=== PATIENT | male | born 1950 | race Caucasian/White ===

== ENCOUNTER 2018-06-23 13:42 | Inpatient (IN) | payer MEDICARE, MEDICAID ==
[~2018-06-23] VITALS: Ht 165.1 cm; Wt 149.1 kg
--- NOTE | ~2018-06-23 | MORECARE ---
CASE MANAGEMENT DISCHARGE SUMMARY PATIENT: FREEMAN ALBRECHT UNIT: [id number] ADM DATE: 06/23/18 AGE: 68 : [birth year] SEX: M ROOM/BED: D.8827 AUTHOR: ASHLEY,DOC PHYSICIAN: REFERRING PHYSICIAN: EMILY AMADOR MD DATE OF SERVICE: 08/05/18 Discharge Plan Patient Name: FREEMAN ALBRECHT [facility] [facility] 1950 Planned Disposition: Nursing Facility NII Cert Anticipated Discharge Date: 08/05/18 Discharge Date: Expected LOS: 43 Initial Reviewer: [id number] Initial Review Date: 06/27/2018 Generated: 08/05/18 12:54 pm Comments DCP- Discharge Planning Updated by [id number]: Pepe Interiano on 08/04/18 10:[address] Patient Name: FREEMAN ALBRECHT Encounter No: [id number] : 1950 Primary Insurance: [facility] [place] or PPO Anticipated DC Date: 08-05-2018 Planned Disposition: Nursing Facility NII Cert External Planned Provider: [facility], SHIP PURSER CARE MEDICAID BED DCP follow-up note: CM REVIEWED CHART, PT CONTINUES ON ROOM AIR DURING DAY AND ON 3 LITERS OXYGEN WITH BIPAP. [facility] HAS ACCEPTED FOR OUTPATIENT DIALYSIS, HAVE TTS 1215 DIALYSIS SCHEDULE. CM RECEIVED CALL FROM KELLIE OF [facility], , THEY HAVE RECEIVED A BERI CHAIR AND ARRANGED DIALYSIS TRANSPORTATION. KELLIE INFORMED CM THAT THE DIALYSIS CENTER CAN START ON 08-07-18. CM FAXED HOSPITAL UPDATE TO [facility], . CM VERIFIED DELAY OF OUTPATIENT DIALSYSIS CHAIR OF THE DIALYSIS UNIT GIVING CHAIR TO TRAVELER UNTIL SATURDAY OF THIS WEEK PER BILL OF [facility]IENT [facility]. CM NOTIFIED PT WHO IS IN AGREEMENT WITH DISCHARGE TO THE [facility] SOON POSSIBLE. IMPORTANT MESSAGE FROM MEDICARE PROVIDED AND EXPLAINED. [facility] IN [place] WILL ACCEPT FOR OUTPATIENT ADMIT ON 08-07-18. FOR DISCHARGE, CALL NURSE REPORT TO [facility], , FAX DISCHARGE INFORMATION TO [facility], . PT TO TRANSPORT VIA AMBULANCE. SIENA HILARIO MANAGEMENT DCP- Discharge Planning Updated by [id number]: Pepe Interiano on 07/31/18 2:[address] Patient Name: FREEMAN ALBRECHT Encounter No: [id number] : 1950 Primary Insurance: [facility] [place] or PPO Anticipated DC Date: 07-29-2018 Planned Disposition: Nursing Facility [facility] Cert External Planned Provider: [facility], LONG TERM CARE MEDICAID BED DCP follow-up note: CM REVIEWED CHART, PT NOW ON ROOM AIR DURING DAY AND ON 3 LITERS OXYGEN WITH BIPAP AT NIGHT PER BEDSIDE NURSE. [facility] HAS ACCEPTED FOR OUTPATIENT DIALYSIS, HAVE TTS 1215 DIALYSIS SCHEDULE, DEPENDENT UPON THE [facility] OBTAINING A BERI CHAIR AND TRANSPORTATION. CM FAXED HOSPITAL UPDATE TO [facility], . [facility] ANTICIPATES DELIVERY OF NEW BERI CHAIR NEXT 08-04-18. [facility] WILL CALL WHEN NEW BERIATRIC CHAIR IS RECEIVED AND THEY ARE ABLE TO ACCEPT PT BACK IN FACILITY, THEY NOW ANTICIPATE 08-04-18. ONCE ACCEPTED AND DISCHARGE ORDERS RECEIVED, CALL NURSE REPORT TO [facility], , FAX DISCHARGE INFORMATION TO [facility], . PT TO TRANSPORT VIA AMBULANCE. SIENA HILARIO DCP- Discharge Planning Updated by [id number]: Pepe Interiano on 07/29/18 8:[address] Patient Name: FREEMAN ALBRECHT Encounter No: [id number] : 1950 Primary Insurance: [facility] [place] or PPO Anticipated DC Date: 07-29-2018 Planned Disposition: Nursing Facility [facility] Cert External Planned Provider: [facility], LONG TERM CARE MEDICAID BED DCP follow-up note: CM REVIEWED CHART, PT CONTINUES ON 3 LITERS OXYGEN ON HIGH FLOW CANNULA. [facility] HAS ACCEPTED FOR OUTPATIENT DIALYSIS, HAVE TTS 1215 DIALYSIS SCHEDULE, DEPENDENT UPON THE [facility] OBTAINING A BERI CHAIR AND TRANSPORTATION. CM FAXED HOSPITAL UPDATE TO [facility], . CM RECEIVED CALL FROM KELLIE OF [facility], . KELLIE ADVISED THE NEW JOSSUE CHAIR WILL NOT BE IN UNTIL SATURDAY OF NEXT WEEK. CM EXPLAINED THAT INSURANCE HAS PROVIDED HOSPITAL AUTHORIZATION THRU TODAY AND ANTICIPATED DISCHARGE TO THE [facility]. KELLIE WILL CHECK WITH THE TELECOM MANAGER AND CALL CM WITH UPDATE. [facility] WILL NOT ACCEPT PT UNTIL THE CHAIR IS DELIVERED TO FACLITY. THE FACILITY CAN ACCOMODATE 3LITERS OXYGEN ON HIGH FLOW CANNULA. PT NOTIFIED, IMPORTANT MESSAGE FROM MEDICARE PROVIDED AND EXPLAINED. PT WANTS TO RETURN TO THE [facility] SOON POSSIBLE AND IS NOT HAPPY WITH TIME IT IS TAKING FOR THE [facility] TO MAKE ACCOMODATION FOR HIM TO RETURN "HOME". PT ASKED FOR CM ASSISTANCE IN CALLING NUMBER ON HIS CELL PHONE, CM ASSISTED; PT BEGAN TALKING TO THE [facility] REGARDING GETTING HIS BERI CHAIR, CM LEFT ROOM. [facility] WILL CALL WHEN NEW BERIATRIC CHAIR IS RECEIVED AND THEY ARE ABLE TO ACCEPT PT BACK IN FACILITY, THEY NOW ANTICIPATE 08-04-18. ONCE ACCEPTED AND DISCHARGE ORDERS RECEIVED, CALL NURSE REPORT TO [facility], , FAX DISCHARGE INFORMATION TO [facility], . PT TO TRANSPORT VIA AMBULANCE. PEPE INTERIANO, CASE MANAGEMENT DCP- Discharge Planning Updated by [id number]: Pepe Interiano on 07/23/18 9:[address] Patient Name: FREEMAN ALBRECHT Encounter No: [id number] : 1950 Primary Insurance: [facility] [place] or PPO Anticipated DC Date: 07-23-2018 Planned Disposition: Nursing Facility [facility] External Planned Provider: [facility], SHELTER CARE MEDICAID BED DCP follow-up note: CM REVIEWED CHART, PT CONTINUES ON 3 LITERS OXYGEN ON HIGH FLOW CANNULA. CM CALLED AND SPOKE TO BILL OF [facility], , WHO CHECKED WITH [facility], THEY HAVE ACCEPTED, HAVE TTS 1215 DIALYSIS SCHEDULE BUT CANNOT ADMIT FOR OUTPATIENT DIALYSIS UNTIL 07-29-18 THEY HAVE A VISITOR HAVING DIALYSIS IN THAT CHAIR TIME UNTIL 07-26-18. CM NOTIFED RENAL NURSE ILSA. CM HAS REQUESTED THAT FACILITY ACCEPT PT ON Saturday07-26-18, AFTER HOSPITAL DIALYSIS. CM WAITING ADMISSION DETERMINATION FROM [facility] WHO INFORMED CM THAT PT'S DIALYSIS SCHEDULE HAS BEEN OBTAINED: [facility], TTS, 1215 HOURS, [facility] TO TRANSPORT, CAN ADMIT TO OUTPATIENT CLINIC ON 07-29-18. PEPE INTERIANO, CASE MANAGEMENT Appended by Pepe Interiano on 07/23/2018 10:54 CDT: CM CALLED AND SPOKE TO MARGARET AT [facility], . THEY WERE USING A BORROWED JOSSUE CHAIR WHICH BROKE AND THEY ORDERED A NEW ONE, WHICH SHOULD BE IN EARLY NEXT WEEK. THEY WILL NOT ACCEPT PT UNTIL THE CHAIR IS DELIVERED TO [facility]. THE FACILITY CAN ACCOMODATE 3LITERS OXYGEN ON HIGH FLOW CANNULA. [facility] WILL CALL WHEN NEW BERIATRIC CHAIR IS RECEIVED AND THEY ARE ABLE TO ACCEPT PT BACK IN FACILITY. ONCE ACCEPTED AND DISCHARGE ORDERS RECEIVED, CALL NURSE REPORT TO [facility], , FAX DISCHARGE INFORMATION TO [facility], . PT TO TRANSPORT VIA AMBULANCE. SIENA HILARIO MANAGEMENT DCP- Discharge Planning Updated by [id number]: Pepe Interiano on 07/22/18 4:[address] Patient Name: FREEMAN ALBRECHT Encounter No: [id number] : 1950 Primary Insurance: [facility] [place] or PPO Anticipated DC Date: 07-15-2018 Planned Disposition: Nursing Facility NII Cert External Planned Provider: [facility], SHIP PURSER CARE MEDICAID BED DCP follow-up note: CM REVIEWED CHART, PT CONTINUES ON 3 LITERS OXYGEN ON HIGH FLOW CANNULA. FAXED UPDATED NOTES TO [facility], . CM TO CALL AND FOLLOW UP WITH MARGARET AT [facility] WHO IS CHECKING TO SEE IF THE FACILITY CAN MEET PT'S NEEDS FOR OUTPATIENT DIALYSIS ARRANGEMENTS. Pepe Interiano, CASE MANAGEMENT Appended by Pepe Interiano on 07/22/2018 17:21 CDT: CM CALLED AND SPOKE TO LIZ, INSPECTOR SEMICONDUCTOR WAFER FOR [facility], . LIZ REPORTS RECEIVING UPDATES YESTERDAY AND TODAY, MARGARET, TELECOM MANAGER IS OUT TODAY AND THEY HAVE MADE ARRANGEMENTS TO GET PT TO AND FROM DIALYSIS FROM THE [facility]. LIZ REPORTS HAVING DIALYSIS SCHEDULE FOR PT OF TTS AT 1215 AT [facility]. LIZ WILL DISCUSS PT'S CONDITION AND NEED FOR HIGH FLOW OXYGEN AND HAVE MARGARET CALL CM TO CONFIRM THAT THEY CAN MEET PT'S OXYGEN NEEDS FOR READMISSION TO [facility] AT [facility]. PT NOTIFIED AND IN AGREEMENT WITH RETURN TO THE [facility]. IMPORTANT MESSAGE FROM MEDICARE PROVIDED AND EXPLAINED, PT CONTINUES TO REPORT INABILITY TO MOVE ARMS ENOUGH TO SIGN NAME. CM WAITING ADMISSION DETERMINATION FROM [facility] WHO INFORMED CM THAT PT'S DIALYSIS SCHEDULE HAS BEEN OBTAINED: [facility], TTS, 1215 HOURS, [facility] TO TRANSPORT. PEPE INTERIANO, CASE MANAGEMENT DCP- Discharge Planning Updated by [id number]: Pepe Interiano on 07/21/18 8:[address] Patient Name: FREEMAN ALBRECHT Encounter No: [id number] : 1950 Primary Insurance: [facility] [place] or PPO Anticipated DC Date: 07-15-2018 Planned Disposition: Nursing Facility [facility] Cert External Planned Provider: [facility], LONG TERM CARE MEDICAID BED DCP follow-up note: CM REVIEWED CHART, PT NOW ON 3 LITERS OXYGEN ON HIGH FLOW CANNULA. FAXED UPDATED NOTES TO [facility], . CM TO CALL AND FOLLOW UP WITH MARGARET AT [facility] WHO IS CHECKING TO SEE IF THE FACILITY CAN MEET PT'S NEEDS FOR OUTPATIENT DIALYSIS ARRANGEMENTS. Pepe Interiano CASE MANAGEMENT DCP- Discharge Planning Updated by [id number]: Pepe Interiano on 07/17/18 3:[address] Patient Name: FREEMAN ALBRECHT Encounter No: [id number] : 1950 Primary Insurance: [facility] [place] or PPO Anticipated DC Date: 07-15-2018 Planned Disposition: Nursing Facility [facility] Cert External Planned Provider: [facility], LONG TERM CARE MEDICAID BED DCP follow-up note: CM CALLED FOR TELECOM MANAGER MARGARET OF [facility], , SPOKE TO KELLIE MARGARET NOT IN TODAY. FAXED UPDATE HAS BEEN RECEIVED BY FACILITY TODAY. CM INFORMED OF DOCTORS PLAN TO DISCHARGE ONCE OXYGEN LEVEL CAN BE PROVIDED SAFELY BY FACILITY. KELLIE WILL NOTIFY MARGARET TOMORROW, DISCUSS OXYGEN NEEDS WITH DIALYSIS UNIT AND CALL CM WITH DETERMINATION. CM SPOKE TO PT IN ROOM, PT WANTS TO GO BACK TO THE [facility] WHERE HE LIVES. IMPORTANT MESSAGE FROM MEDICARE PROVIDED AND DISCUSSED. CM WAITING RETURN CALL FROM MARGARET OF [facility]. SIENA Hilario DCP- Discharge Planning Updated by [id number]: Pepe Interiano on 07/15/18 5:[address] Patient Name: FREEMAN ALBRECHT Encounter No: [id number] : 1950 Primary Insurance: [facility] [place] or PPO Anticipated DC Date: 07-15-2018 Planned Disposition: Nursing Facility [facility] Cert External Planned Provider: [place] [facility] DCP follow-up note: CM REVIEWED CHART, PT NOW ON 10 LITERS OXYGEN ON HIGH FLOW CANNULA. FAXED UPDATED NOTES TO [facility], . CM TO CALL AND FOLLOW UP WITH MARGARET AT [facility] WHO IS CHECKING TO SEE IF THE FACILITY CAN MEET PT'S NEEDS FOR OUTPATIENT DIALYSIS ARRANGEMENTS. Pepe Interiano CASE MANAGEMENT Appended by Pepe Interiano on 07/15/2018 18:24 CDT: CM SPOKE TO BILL ANN [facility] WHO REPORTS THAT THE OUTPATIENT DIALYSIS CLINIC PLANS TO ACCEPT PT FOR OUTPATIENT DIALYSIS SERVICES ONCE THE [facility] HAS ARRANGED APPROPRIATE TRANSPORT CHAIR AND TRANSPORTATION TO AND FROM DIALYSIS. BILL ASKED TO BE NOTIFIED ONCE THIS HAS BEEN VERIFIED TO COMPLETE OUTPATIENT DIALYSIS CLINIC ARRANGEMENTS. CM NOTIFED BILL OF PT'S DECLINE AND HIGH OXYGEN NEED AT THIS TIME. CM TO KEEP BOTH BILL ANN PATIENT LOGAN AND MARGARET [facility] ADVISED OF PT'S CONDITION AND FOLLOW UP WITH MARGARET AT [facility] WHO IS CHECKING TO SEE IF THE FACILITY CAN MEET PT'S NEEDS FOR OUTPATIENT DIALYSIS ARRANGEMENTS. SIENA HILARIO DCP- Discharge Planning Updated by [id number]: Pepe Interiano on 07/02/18 11:[address] Patient Name: FREEMAN ALBRECHT Encounter No: [id number] : 1950 Primary Insurance: [facility] [place] or PPO Anticipated DC Date: Planned Disposition: Nursing Facility [facility] Cert External Planned Provider: [facility], SHELTER CARE MEDICAID BED DCP follow-up note: CM RECEIVED MESSAGE FROM BILL BENSON OF [facility], PT CAN ATTEND OUTPATIENT DIALYSIS AT [facility] IN [place] IF HE HAS BERIATRIC JOSSUE CHAIR THAT HE CAN SIT IN AT THE UNIT FOR DURATION OF DIALYSIS. CM CALLED AND SPOKE TO TELECOM MANAGER MARGARET OF [facility], , INFORMED OF NEED OF OUTPATIENT DIALYSIS AND BERI JOSSUE CHAIR AND TRANSPORTATION TO AND FROM OUTPATIENT DAILYSIS. MARGARET IS NOT SURE IF THEY WILL BE ABLE TO ACCOMODATE PT'S NEEDS BUT WILL EXPLORE OPTIONS NOW. PT HAS BEEN UP TO HIS HOVERROUND SCOOTER AT THE [facility] PRIOR TO HOSPITALIZATION. PT'S BROTHER IS NOT ABLE TO MAKE DECISIONS FOR PT AND PT HAS NO OTHER LIVING FAMILY PER MARGARET. CM MET WITH PT IN ROOM, PT ORIENTED TO SELF AND PLACE AND SITUATION. PT DOES WANT OUTPATIENT DIALYSIS, DOES NOT WANT TO MOVE FROM HIS [facility] WHERE HE LIVES WITH HIS BROTHER, AND REPORTS THAT HE IS NORMALLY [facility] REPORTING THE [facility] HAS A LIFT TO GET HIM UP. PT REPORTS HE PROVIDED HIS FRIEND ROD SALGADO WITH POWER OF PAYMENT REP IF IT IS EVER NEEDED. CM SPOKE TO ROD VANCERIDGE, PT'S FRIEND AT [phone]. ROD STATES THAT PT GAVE HIM A PACKET OF INFORMATION TO BE OPENED IN EVENT OF PT'S BUT HE HAS NEVER LOOKED INSIDE TO KNOW WHAT IS IN THERE. BOTH PT AND PT'S BROTHER ALWAYS TOLD HIM THAT IF PT'S BROTHER IS NOT ABLE TO MAKE DECISIONS, ROD WOULD BE IT. ROD WILL LOOK IN THE PACKET OF INFORMATION TO SEE IF HE HAS MEDICAL POWER OF PAYMENT REP IF IT IS EVER NEEDED. CM FAXED UPDATED NOTES TO [facility], . MARGARET AT [facility] IS CHECKING TO SEE IF THE FACILITY CAN MEET PT'S NEEDS FOR OUTPATIENT DIALYSIS ARRANGEMENTS. Pepe Interiano, CASE MANAGEMENT DCP- Discharge Planning Updated by [id number]: Pepe Interiano on 07/01/18 4:[address] Patient Name: FREEMAN ALBRECHT Encounter No: [id number] : 1950 Primary Insurance: [facility] [place] H[place] or PPO Anticipated DC Date: Planned Disposition: Nursing Facility [facility] External Planned Provider: [facility], SHIP PURSER CARE MEDICAID BED DCP follow-up note: CM SPOKE TO ROD SALGADO, PT'S FRIEND AT NURSES STATION. ROD BELIEVES PT HAS GIVEN UP ON LIFE. ROD IS CONCERNED OF HOW PT WILL GET TO AND FROM DILALYSIS WHILE AT [facility] AND ASKED CM TO CONTACT THE [facility] TO DISCUSS THIS ROD FEELS THAT PT MAY NOT BE ABLE TO TRANSPORT FOR DIAYSIS OR SIT IN CHAIR FOR DIALYSIS IN A CLINIC. ROD PROVIDED HIS CONTACT PHONE IF NEEDED, . CM FAXED UPDATED NOTES TO [facility], AND WILL CALL FACILITY TOMORROW TO DISCUSS OUTPATIENT DIALYSIS. Pepe Interiano, CASE MANAGEMENT DCP- Discharge Planning Updated by [id number]: Pepe Interiano on 06/27/18 11:[address] Patient Name: FREEMAN ALBRECHT Admission Status: Elective Accout number: [id number] Admission Date: 06-23-2018 : 1950 Admission Diagnosis:ACUTE KIDNEY FAILURE, UNSPECIFIED Attending: Emily Amador Current LOS: 4 Anticipated DC Date: Planned Disposition: Nursing Facility [facility] Primary Insurance: [facility] [place] H[place] or PPO PLANNED EXTERNAL PROVIDER: [facility], LONG TERM CARE MEDICAID BED Discharge Planning Comments: * Is the patient Alert and Oriented? No 0 * How many steps to enter\\exit or inside your home? NONE 0 * PCP DR. ESCAMILLA 0 * Pharmacy [facility] 0 * Preadmission Environment [employer] 0 * Facility Name [facility] 0 * ADLs Total Dependent 0 * Equipment Other 0 * Other Equipment ALL MEDICAL EQUIPMENT PROVIDED BY FACILITY 0 * List name and contact numbers for known caregivers / representatives who currently or will assist patient after discharge: ROD SALGADO, FRIEND, 0 * Verbal permission to speak to the caregivers and representatives has been obtained from the patient. N/A 0 * Community resources currently utilized None 0 * Please name any agencies selected above. NONE 0 * Additional services required to return to the preadmission environment? No 0 * Can the patient safely return to the preadmission environment? Yes 0 * Has this patient been hospitalized within the prior 30 days at any hospital? No 0 CM ATTEMPTED TO ASSESS PT IN ROOM FOR DISCHARGE PLANNING AND NEEDS. PT REPORTS LIVING AT HOME ALONE AND INDEPENDENTLY. PT FALLING ASLEEP DURING CONSULT AND TOOK LONG PERIODS OF TIME AND CM CONSTANTLY AWAKING PT AND REPEATING QUESTIONS TO GET ANY RESPONSE. CM REVIEWED CHART WHICH INDICATES PT TRANSFERRED FROM [facility] AND ADMITTED TO THEM FROM "[facility]." CM CALLED PT'S LISTED EMERGENCY CONTACT, BROTHER HENRY, . THE NUMBER WAS ANSWERED AT [facility], CM SPOKE TO PT'S [facility] NURSE, CORIE, WHO INFORMED CM THAT BOTH PT AND PT'S BROTHER, MERCEDES, ARE IN SHIP PURSER CARE AT THE [facility]. PT DOES NOT CURRENTLY HAVE OUTPATIENT DIALYSIS, PT IS VERY NON COMPLIANT WITH FLUID RESTRICTIONS. PT IS TOTAL CARE AT THE [facility] AND THEY PLAN TO ACCEPT BACK. CM FAXED UPDATE TO [facility], . FOR DISCHARGE, FAX DISCHARGE INFORMATION TO [facility], ; NURSE REPORT TO BE CALLED TO [facility], . PT TO TRANSPORT VIA AMBULANCE. Brake Press Operator: Pepe Interiano DCPIA - Discharge Planning Initial Assessment Updated by [id number]: Pepe Interiano on 07/02/18 11:42 am * Is the patient Alert and Oriented? No * How many steps to enter\\exit or inside your home? NONE * PCP DR. ESCAMILLA * Pharmacy [facility] * Preadmission Environment [facility] * Facility Name [facility] * ADLs Partial Dependent * Partial ADLs (Assistance needed) Bathing Dressing Medication Management Toileting Transfers * Equipment Other * Other Equipment ALL MEDICAL EQUIPMENT PROVIDED BY FACILITY * List name and contact numbers for known caregivers / representatives who currently or will assist patient after discharge: ROD SALGADO, FRIEND, * Verbal permission to speak to the caregivers and representatives has been obtained from the patient. N/A * Community resources currently utilized None * Please name any agencies selected above. NONE * Additional services required to return to the preadmission environment? No * Can the patient safely return to the preadmission environment? Yes * Has this patient been hospitalized within the prior 30 days at any hospital? No Coverage Notice Reviewer: [id number] - Pepe Interiano Notice Issued Date-Time: 07/17/2018 16:00 Notice Type: IM Discharge Notice Notice Delivered To: Patient Relationship to Patient: Underground Heavy Equipment Operator Name: Delivery Method: HAND - Hand Delivered Chela Days: Prior Verbal Notification: Recipient Understood Notice: Yes Recipient Signature: Med Rec Note Co-signed by Attending: Coverage Notice Comment: Reviewer: GLENNY Interiano Notice Issued Date-Time: 07/22/2018 16:30 Notice Type: IM Discharge Notice Notice Delivered To: Patient Relationship to Patient: Underground Heavy Equipment Operator Name: Delivery Method: HAND - Hand Delivered Chela Days: Prior Verbal Notification: Recipient Understood Notice: Yes Recipient Signature: Med Rec Note Co-signed by Attending: Coverage Notice Comment: Reviewer: GLENNY Interiano Notice Issued Date-Time: 07/29/2018 9:25 Notice Type: IM Discharge Notice Notice Delivered To: Patient Relationship to Patient: Underground Heavy Equipment Operator Name: Delivery Method: HAND - Hand Delivered Chela Days: Prior Verbal Notification: Recipient Understood Notice: Yes Recipient Signature: Yes Med Rec Note Co-signed by Attending: Coverage Notice Comment: Reviewer: GLENNY Interiano Notice Issued Date-Time: 08/04/2018 11:40 Notice Type: IM Discharge Notice Notice Delivered To: Patient Relationship to Patient: Underground Heavy Equipment Operator Name: Delivery Method: HAND - Hand Delivered Chela Days: Prior Verbal Notification: Recipient Understood Notice: Yes Recipient Signature: Yes Med Rec Note Co-signed by Attending: Coverage Notice Comment: Last DP export: 08/04/18 11:03 Patient Name: FREEMAN ALBRECHT Page [id number] at 1154 All edits/amendments must be made on the electronic document DICTATION DATE: 08/05/18 115 GAMES MANAGER: DM 08/05/18 1154 RPT#: [id number] DC DATE: STATUS: ADM IN [facility] [address] [place] [address] END OF REPORT
--- NOTE | ~2018-06-23 | CN ---
PATIENT NAME:FREEMAN ALBRECHT MEDICAL RECORD: [id number] : 52 LOCATION:D.M2 D.2137 ADMIT DATE: 06/23/18 ACCOUNT: [id number] CONSULTING PHYSICIAN: BRANDON TOLEDO MD REFERRING PHYSICIAN: BERNARDO AMADOR MD DATE OF CONSULTATION: 07/15/2018 CONSULT REQUESTING PHYSICIAN: Bernardo Amador MD REASON FOR CONSULTATION: Dlcnq-mp-gkewkss hypoxic respiratory failure. HISTORY OF PRESENT ILLNESS: Mr. Albrecht is a 68-year-old gentleman who has a history of obstructive sleep apnea, morbid obesity, long term resident. The patient was on 3-liter oxygen, but his oxygen requirement is increasing, now he is on 10-liter oxymizer. Denies any chest pain. There are no fever or chill, no night sweats, no cough or sputum production. The patient has been on dialysis for the last couple of weeks. REVIEW OF SYSTEMS: As in history of present illness. PAST MEDICAL HISTORY: 1. Congestive heart failure. 2. History of coronary artery disease. 3. Chronic hypoxic respiratory failure. 4. Obstructive sleep apnea, on CPAP machine. PAST SURGICAL HISTORY: He has a back surgery. ALLERGIES: There are no known drug allergy. MEDICATIONS: On NetShoes is reviewed. He has got Lovenox 100 mg today. PERSONAL AND SOCIAL HISTORY: The patient has never smoked. He is a nondrinker. FAMILY HISTORY: Noncontributory. PHYSICAL EXAMINATION: GENERAL: Now, the patient is lying comfortably. He is not in acute distress. VITAL SIGNS: The blood pressure is 132/64, pulse is 67, respiration is 18, temperature 98.2, SpO2 is 97% on 9-liter oxymizer. HEENT: Conjunctivae are pink. Sclerae are not icteric. NECK: The neck is supple, no JVD. CHEST: The chest excursion is minimal on both sides. There is no wheeze, no rales. HEART: Rate and rhythm regular. The heart sounds are distant. No murmur. ABDOMEN: The abdomen is soft, bowel sounds present. No hepatosplenomegaly. RECTAL: Deferred. EXTREMITIES: No cyanosis, no clubbing. There is 1+ pedal edema. SKIN: The skin is warm, normal turgor. CENTRAL NERVOUS SYSTEM: The patient is awake and alert. There are no obvious cranial nerve abnormality. The gait was not tested. IMAGING: Chest radiograph on 07/15/2018, there is mild cardiomegaly. There is no infiltrate, no evidence of consolidation or pulmonary edema. CONSULT REPORT [id number] FREEMAN ALBRECHT OTHER LABORATORY DATA: CBC: WBC 5.5, hemoglobin is 7.6, hematocrit 24.1, the platelet count is 190. Chemistry: Sodium 135, potassium is 4.6, BUN is 61, creatinine 5.4. IMPRESSION: 1. Hqewx-bs-divemkh hypoxic respiratory failure. 2. Rule out pulmonary thromboembolism. 3. Obstructive sleep apnea. 4. Morbid obesity. 5. End-stage renal disease, on hemodialysis. 6. Anemia. 7. Congestive heart failure. RECOMMENDATION: 1. Continue Lovenox. 2. Get the CTA of the chest. 3. Hemodialysis. 4. We will recommend to keep the hematocrit above 26. 5. Hemodialysis. Follow up labs and chest radiograph. Discussed with Dr. Amador. TRANSINT:[id number] Voice Confirmation ID: [id number] DOCUMENT ID: [id number] BRANDON TOLEDO MD at 1301 CC: [id number] DICTATION DATE: 07/15/18 1538 MEDICAL INSTRUMENT CABLE FABRICATOR: 07/15/18 1711 ADM IN [facility] [address] [place] [address]
--- NOTE | ~2018-06-23 | MORECARE ---
CASE MANAGEMENT DISCHARGE SUMMARY PATIENT: FREEMAN ALBRECHT UNIT: [id number] ADM DATE: 06/23/18 AGE: 68 : 51 SEX: M ROOM/BED: D.4896 AUTHOR: ASHLEY,DOC PHYSICIAN: REFERRING PHYSICIAN: EMILY AMADOR MD DATE OF SERVICE: 07/29/18 Discharge Plan Patient Name: FREEMAN ALBRECHT [facility] [facility] 1950 Planned Disposition: Nursing Facility NII Cert Anticipated Discharge Date: 07/29/18 Discharge Date: Expected LOS: 36 Initial Reviewer: [email or web address] Initial Review Date: 06/27/2018 Generated: 07/29/18 10:51 am Comments DCP- Discharge Planning Updated by [id number]: Pepe Interiano on 07/29/18 8:[address] Patient Name: FREEMAN ALBRECHT Encounter No: [id number] : 1950 [place] [facility] [place] Anticipated DC Date: 07-29-2018 Planned Disposition: Nursing Facility NII Cert External Planned Provider: [facility], [facility] MEDICAID BED DCP follow-up note: CM REVIEWED CHART, PT CONTINUES ON 3 LITERS OXYGEN ON HIGH FLOW CANNULA. [facility] HAS ACCEPTED FOR OUTPATIENT DIALYSIS, HAVE TTS 1215 DIALYSIS SCHEDULE, DEPENDENT UPON THE INTERMEDIATE OBTAINING A BERI CHAIR AND TRANSPORTATION. CM FAXED HOSPITAL UPDATE TO [facility], . CM RECEIVED CALL FROM KELLIE OF [facility], . KELLIE ADVISED THE NEW JOSSUE CHAIR WILL NOT BE IN UNTIL SATURDAY OF NEXT WEEK. RACHEL EXPLAINED THAT INSURANCE HAS PROVIDED HOSPITAL AUTHORIZATION THRU TODAY AND ANTICIPATED DISCHARGE TO THE INTERMEDIATE. KELLIE WILL CHECK WITH THE BUS DRIVER SCHOOL AND CALL CM WITH UPDATE. [facility] WILL NOT ACCEPT PT UNTIL THE CHAIR [facility]. THE FACILITY CAN ACCOMODATE 3LITERS OXYGEN ON HIGH FLOW CANNULA. PT NOTIFIED, IMPORTANT MESSAGE FROM MEDICARE PROVIDED AND EXPLAINED. PT WANTS TO RETURN TO THE INTERMEDIATE SOON POSSIBLE AND IS NOT HAPPY WITH TIME IT IS TAKING FOR THE INTERMEDIATE TO MAKE ACCOMODATION FOR HIM TO RETURN "HOME". PT ASKED FOR CM ASSISTANCE IN CALLING NUMBER ON HIS CELL PHONE, CM ASSISTED; PT BEGAN TALKING TO THE INTERMEDIATE REGARDING GETTING HIS BERI CHAIR, CM LEFT ROOM. [facility] WILL CALL WHEN NEW BERIATRIC CHAIR IS RECEIVED AND THEY ARE ABLE TO ACCEPT PT BACK IN FACILITY, THEY NOW ANTICIPATE 08-04-18. ONCE ACCEPTED AND DISCHARGE ORDERS RECEIVED, CALL NURSE REPORT TO [facility], , FAX DISCHARGE INFORMATION TO [facility], . PT TO TRANSPORT VIA AMBULANCE. PEPE INTERIANO, CASE MANAGEMENT DCP- Discharge Planning Updated by [id number]: Pepe Interiano on 07/23/18 9:[address] Patient Name: FREEMAN ALBRECHT Encounter No: [id number] : 1950 [place] [facility] [place] Anticipated DC Date: 07-23-2018 Planned Disposition: Nursing Facility NII Cert External Planned Provider: [facility], [facility] MEDICAID BED DCP follow-up note: CM REVIEWED CHART, PT CONTINUES ON 3 LITERS OXYGEN ON HIGH FLOW CANNULA. CM CALLED AND SPOKE TO BILL OF [facility], , WHO CHECKED WITH [facility], THEY HAVE ACCEPTED, HAVE TTS 1215 DIALYSIS SCHEDULE BUT CANNOT ADMIT FOR OUTPATIENT DIALYSIS UNTIL 07-29-18 THEY HAVE A VISITOR HAVING DIALYSIS IN THAT CHAIR TIME UNTIL 07-26-18. CM NOTIFED RENAL NURSE ILSA. CM HAS REQUESTED THAT FACILITY ACCEPT PT ON Saturday07-26-18, AFTER HOSPITAL DIALYSIS. CM WAITING ADMISSION DETERMINATION FROM [facility] WHO INFORMED CM THAT PT'S DIALYSIS SCHEDULE HAS BEEN OBTAINED: [facility], TTS, 1215 HOURS, INTERMEDIATE TO TRANSPORT, CAN ADMIT TO OUTPATIENT CLINIC ON 07-29-18. PEPE INTERIANO, CASE MANAGEMENT Appended by Pepe Interiano on 07/23/2018 10:54 CDT: RACHEL CALLED AND SPOKE TO MARGARET AT [facility], . THEY WERE USING A BORROWED JOSSUE CHAIR WHICH BROKE AND THEY ORDERED A NEW ONE, WHICH SHOULD BE IN EARLY NEXT WEEK. THEY WILL NOT ACCEPT PT UNTIL THE CHAIR IS DELIVERED TO FACLITY. THE FACILITY CAN ACCOMODATE 3LITERS OXYGEN ON HIGH FLOW CANNULA. [facility] WILL CALL WHEN NEW BERIATRIC CHAIR IS RECEIVED AND THEY ARE ABLE TO ACCEPT PT BACK IN FACILITY. ONCE ACCEPTED AND DISCHARGE ORDERS RECEIVED, CALL NURSE REPORT TO [facility], , FAX DISCHARGE INFORMATION TO [facility], . PT TO TRANSPORT VIA AMBULANCE. PEPE NITERIANO CASE MANAGEMENT DCP- Discharge Planning Updated by [id number]: Pepe Interiano on 07/22/18 4:[address] Patient Name: FREEMAN ALBRECHT Encounter No: [id number] : 1950 [place] [facility] [place] Anticipated DC Date: 07-15-2018 Planned Disposition: Nursing Facility NII Cert External Planned Provider: [facility], [facility] MEDICAID BED DCP follow-up note: CM REVIEWED CHART, PT CONTINUES ON 3 LITERS OXYGEN ON HIGH FLOW CANNULA. FAXED UPDATED NOTES TO [facility], . CM TO CALL AND FOLLOW UP WITH MARGARET AT [facility] WHO IS CHECKING TO SEE IF THE FACILITY CAN MEET PT'S NEEDS FOR OUTPATIENT DIALYSIS ARRANGEMENTS. Pepe Interiano, CASE MANAGEMENT Appended by Pepe Interiano on 07/22/2018 17:21 CDT: CM CALLED AND SPOKE TO LIZ, OUTREACH CLINICIAN FOR [facility], . LIZ REPORTS RECEIVING UPDATES YESTERDAY AND TODAY, MARGARET, BUS DRIVER [employer] IS OUT TODAY AND THEY HAVE MADE ARRANGEMENTS TO GET PT TO AND FROM DIALYSIS FROM THE INTERMEDIATE. LIZ REPORTS HAVING DIALYSIS SCHEDULE FOR PT OF TTS AT 1215 AT [facility]. LIZ WILL DISCUSS PT'S CONDITION AND NEED FOR HIGH FLOW OXYGEN AND HAVE MARGARET CALL CM TO CONFIRM THAT THEY CAN MEET PT'S OXYGEN NEEDS FOR READMISSION TO [facility] AT [facility]. PT NOTIFIED AND IN AGREEMENT WITH RETURN TO THE INTERMEDIATE. IMPORTANT MESSAGE FROM MEDICARE PROVIDED AND EXPLAINED, PT CONTINUES TO REPORT INABILITY TO MOVE ARMS ENOUGH TO SIGN NAME. CM WAITING ADMISSION DETERMINATION FROM [facility] WHO INFORMED CM THAT PT'S DIALYSIS SCHEDULE HAS BEEN OBTAINED: [facility], TTS, 1215 HOURS, INTERMEDIATE TO TRANSPORT. SIENA HILARIO DCP- Discharge Planning Updated by [id number]: Pepe Interiano on 07/21/18 8:[address] Patient Name: FREEMAN ALBRECHT Encounter No: [id number] : 1950 [place] [facility] Anticipated DC Date: 07-15-2018 Planned Disposition: Nursing Facility NII Cert External Planned Provider: [facility], [facility]M C[facility] MEDICAID BED DCP follow-up note: CM REVIEWED CHART, PT NOW ON 3 LITERS OXYGEN ON HIGH FLOW CANNULA. FAXED UPDATED NOTES TO [facility], . CM TO CALL AND FOLLOW UP WITH MARGARET AT [facility] WHO IS CHECKING TO SEE IF THE FACILITY CAN MEET PT'S NEEDS FOR OUTPATIENT DIALYSIS ARRANGEMENTS. SIENA Hilario DCP- Discharge Planning Updated by [id number]: Pepe Interiano on 07/17/18 3:[address] Patient Name: FREEMAN ALBRECHT Encounter No: [id number] : 1950 Primary Insurance[place] [facility] [place] Anticipated DC Date: 07-15-2018 Planned Disposition: Nursing Facility NII Cert External Planned Provider: [facility], LONG TERM CARE MEDICAID BED DCP follow-up note: CM CALLED FOR [facility] [employer] [employer] MARGARET OF [facility], , SPOKE TO KELLIE MARGARET NOT IN TODAY. FAXED UPDATE HAS BEEN RECEIVED BY FACILITY TODAY. CM INFORMED OF DOCTORS PLAN TO DISCHARGE ONCE OXYGEN LEVEL CAN BE PROVIDED SAFELY BY FACILITY. KELLIE WILL NOTIFY MARGARET TOMORROW, DISCUSS OXYGEN NEEDS WITH DIALYSIS UNIT AND CALL CM WITH DETERMINATION. CM SPOKE TO PT IN ROOM, PT WANTS TO GO BACK TO THE INTERMEDIATE WHERE HE LIVES. IMPORTANT MESSAGE FROM MEDICARE PROVIDED AND DISCUSSED. CM WAITING RETURN CALL FROM MARGARET OF [facility]. SIENA Hilario DCP- Discharge Planning Updated by [id number]: Pepe Interiano on 07/15/18 5:[address] Patient Name: FREEMAN ALBRECHT Encounter No: [id number] : 1950 [place] [facility] Anticipated DC Date: 07-15-2018 Planned Disposition: Nursing Facility [facility] Cert External Planned Provider: [place] DCP follow-up note: CM REVIEWED CHART, PT NOW ON 10 LITERS OXYGEN ON HIGH FLOW CANNULA. FAXED UPDATED NOTES TO [facility], . CM TO CALL AND FOLLOW UP WITH MARGARET AT [facility] WHO IS CHECKING TO SEE IF THE FACILITY CAN MEET PT'S NEEDS FOR OUTPATIENT DIALYSIS ARRANGEMENTS. Pepe Interiano, CASE MANAGEMENT Appended by Pepe Interiano on 07/15/2018 18:24 CDT: RACHEL SPOKE TO BILL ANN [facility] WHO REPORTS THAT THE OUTPATIENT DIALYSIS CLINIC PLANS TO ACCEPT PT FOR OUTPATIENT DIALYSIS SERVICES ONCE THE INTERMEDIATE HAS ARRANGED APPROPRIATE TRANSPORT CHAIR AND TRANSPORTATION TO AND FROM DIALYSIS. BILL ASKED TO BE NOTIFIED ONCE THIS HAS BEEN VERIFIED TO COMPLETE OUTPATIENT DIALYSIS CLINIC ARRANGEMENTS. CM NOTIFED BILL OF PT'S DECLINE AND HIGH OXYGEN NEED AT THIS TIME. CM TO KEEP BOTH BILL ANN [facility] AND [facility] ADVISED OF PT'S CONDITION AND FOLLOW UP WITH MARGARET AT [facility] WHO IS CHECKING TO SEE IF THE FACILITY CAN MEET PT'S NEEDS FOR OUTPATIENT DIALYSIS ARRANGEMENTS. PEPE INTERIANO, CASE MANAGEMENT DCP- Discharge Planning Updated by [id number]: Pepe Interiano on 07/02/18 11:[address] Patient Name: FREEMAN ALBRECHT Encounter No: [id number] : 1950 [place] [facility] Anticipated DC Date: Planned Disposition: Nursing Facility [facility] Cert External Planned Provider: [facility], [employer] MEDICAID BED DCP follow-up note: RACHEL RECEIVED MESSAGE FROM BILL BENSON OF [facility], PT CAN ATTEND OUTPATIENT DIALYSIS AT [facility] [place] IF HE HAS BERIATRIC JOSSUE CHAIR THAT HE CAN SIT IN AT THE UNIT FOR DURATION OF DIALYSIS. RACHEL CALLED AND SPOKE TO [employer] MARGARET OF [facility], , INFORMED OF NEED OF OUTPATIENT DIALYSIS AND BERI JOSSUE CHAIR AND TRANSPORTATION TO AND FROM OUTPATIENT DAILYSIS. MARGARET IS NOT SURE IF THEY WILL BE ABLE TO ACCOMODATE PT'S NEEDS BUT WILL EXPLORE OPTIONS NOW. PT HAS BEEN UP TO HIS HOVERROUND SCOOTER AT THE INTERMEDIATE PRIOR TO HOSPITALIZATION. PT'S BROTHER IS NOT ABLE TO MAKE DECISIONS FOR PT AND PT HAS NO OTHER LIVING FAMILY PER MARGARET. CM MET WITH PT IN ROOM, PT ORIENTED TO SELF AND PLACE AND SITUATION. PT DOES WANT OUTPATIENT DIALYSIS, DOES NOT WANT TO MOVE FROM HIS INTERMEDIATE WHERE HE LIVES WITH HIS BROTHER, AND REPORTS THAT HE IS NORMALLY UP TO HIS HOVERROUND SCOOTER EVERY DAY REPORTING THE INTERMEDIATE HAS A LIFT TO GET HIM UP. PT REPORTS HE PROVIDED HIS FRIEND ROD SALGADO WITH POWER OF [facility] IF IT IS EVER NEEDED. CM SPOKE TO ROD DAMIAN, PT'S FRIEND AT [phone]. ROD STATES THAT PT GAVE HIM A PACKET OF INFORMATION TO BE OPENED IN EVENT OF PT'S BUT HE HAS NEVER LOOKED INSIDE TO KNOW WHAT IS IN THERE. BOTH PT AND PT'S BROTHER ALWAYS TOLD HIM THAT IF PT'S BROTHER IS NOT ABLE TO MAKE DECISIONS, ROD WOULD BE IT. ROD WILL LOOK IN THE PACKET OF INFORMATION TO SEE IF HE HAS MEDICAL POWER OF [facility] IF IT IS EVER NEEDED. CM FAXED UPDATED NOTES TO [facility], . MARGARET AT [facility] IS CHECKING TO SEE IF THE FACILITY CAN MEET PT'S NEEDS FOR OUTPATIENT DIALYSIS ARRANGEMENTS. Pepe Interiano, CASE MANAGEMENT DCP- Discharge Planning Updated by [id number]: Pepe Interiano on 07/01/18 4:[address] Patient Name: FREEMAN ALBRECHT Encounter No: [id number] : 1950 [place] [facility] [place] Anticipated DC Date: Planned Disposition: Nursing Facility [facility] External Planned Provider: [facility], [employer] MEDICAID BED DCP follow-up note: CM SPOKE TO ROD VANCERIDGE, PT'S FRIEND AT [facility]. ROD BELIEVES PT HAS GIVEN UP ON LIFE. ROD IS CONCERNED OF HOW PT WILL GET TO AND FROM DILALYSIS WHILE AT INTERMEDIATE AND ASKED CM TO CONTACT THE INTERMEDIATE TO DISCUSS THIS ROD FEELS THAT PT MAY NOT BE ABLE TO TRANSPORT FOR DIAYSIS OR SIT IN CHAIR FOR DIALYSIS IN A CLINIC. ROD PROVIDED HIS CONTACT PHONE IF NEEDED, . RACHEL FAXED UPDATED NOTES TO [facility], AND WILL CALL FACILITY TOMORROW TO DISCUSS OUTPATIENT DIALYSIS. Pepe Interiano, CASE MANAGEMENT DCP- Discharge Planning Updated by [id number]: Pepe Interiano on 06/27/18 11:[address] Patient Name: FREEMAN ALBRECHT Admission Status: Elective Accout number: [id number] Admission Date: 06-23-2018 : 1950 Admission Diagnosis:ACUTE KIDNEY FAILURE, UNSPECIFIED Attending: Emily Amador Current LOS: 4 Anticipated DC Date: Planned Disposition: Nursing Facility NII Cert [place] [facility] [place] PLANNED EXTERNAL PROVIDER: [facility], [employer] MEDICAID BED Discharge Planning Comments: * Is the patient Alert and Oriented? No 0 * How many steps to enter\\exit or inside your home? NONE 0 * PCP DR. ESCAMILLA 0 * Pharmacy [facility] * Preadmission Environment [facility] 0 * Facility Name [facility] 0 * ADLs Total Dependent 0 * Equipment Other 0 * Other Equipment ALL MEDICAL EQUIPMENT PROVIDED BY FACILITY 0 * List name and contact numbers for known caregivers / representatives who currently or will assist patient after discharge: ROD SALGADO, FRIEND, 0 * Verbal permission to speak to the caregivers and representatives has been obtained from the patient. N/A 0 * Community resources currently utilized None 0 * Please name any agencies selected above. NONE 0 * Additional services required to return to the preadmission environment? No 0 * Can the patient safely return to the preadmission environment? Yes 0 * Has this patient been hospitalized within the prior 30 days at any hospital? No 0 CM ATTEMPTED TO ASSESS PT IN ROOM FOR DISCHARGE PLANNING AND NEEDS. PT REPORTS LIVING AT HOME ALONE AND INDEPENDENTLY. PT FALLING ASLEEP DURING CONSULT AND TOOK LONG PERIODS OF TIME AND CM CONSTANTLY AWAKING PT AND REPEATING QUESTIONS TO GET ANY RESPONSE. CM REVIEWED CHART WHICH INDICATES PT TRANSFERRED FROM [facility] AND ADMITTED TO THEM FROM "INTERMEDIATE." CM CALLED PT'S LISTED EMERGENCY CONTACT, CORAZON HENRYER, . THE NUMBER WAS ANSWERED AT [facility], CM SPOKE TO PT'S INTERMEDIATE NURSE, CORIE, WHO INFORMED CM THAT BOTH PT AND PT'S BROTHER, MERCEDES, ARE IN [facility] AT THE INTERMEDIATE. PT DOES NOT CURRENTLY HAVE OUTPATIENT DIALYSIS, PT IS VERY NON COMPLIANT WITH FLUID RESTRICTIONS. PT IS [facility] AT THE INTERMEDIATE AND THEY PLAN TO ACCEPT BACK. CM FAXED UPDATE TO [facility], . FOR DISCHARGE, FAX DISCHARGE INFORMATION TO [facility], ; NURSE REPORT TO BE CALLED TO [facility], . PT TO TRANSPORT VIA AMBULANCE. Collection Team Lead: Pepe Interiano DCPIA - Discharge Planning Initial Assessment Updated by GLENNY: Pepe Interiano on 07/02/18 11:42 am * Is the patient Alert and Oriented? No * How many steps to enter\\exit or inside your home? NONE * PCP DR. ESCAMILLA * Pharmacy [facility] * Preadmission Environment [facility] * Facility Name [facility] * ADLs Partial Dependent * Partial ADLs (Assistance needed) Bathing Dressing Medication Management Toileting Transfers * Equipment Other * Other Equipment ALL MEDICAL EQUIPMENT PROVIDED BY FACILITY * List name and contact numbers for known caregivers / representatives who currently or will assist patient after discharge: ROD SALGADO, FRIEND, * Verbal permission to speak to the caregivers and representatives has been obtained from the patient. N/A * Community resources currently utilized None * Please name any agencies selected above. NONE * Additional services required to return to the preadmission environment? No * Can the patient safely return to the preadmission environment? Yes * Has this patient been hospitalized within the prior 30 days at any hospital? No Coverage Notice Reviewer: GLENNY Interiano Notice Issued Date-Time: 07/17/2018 16:00 Notice Type: IM Discharge Notice Notice Delivered To: Patient Relationship to Patient: Inventory Control Planner Name: Delivery Method: HAND - Hand Delivered Chela Days: Prior Verbal Notification: Recipient Understood Notice: Yes Recipient Signature: Med Rec Note Co-signed by Attending: Coverage Notice Comment: Reviewer: GLENNY Interiano Notice Issued Date-Time: 07/22/2018 16:30 Notice Type: IM Discharge Notice Notice Delivered To: Patient Relationship to Patient: Inventory Control Planner Name: Delivery Method: HAND - Hand Delivered Chela Days: Prior Verbal Notification: Recipient Understood Notice: Yes Recipient Signature: Med Rec Note Co-signed by Attending: Coverage Notice Comment: Reviewer: [id number] - Pepe Erin Notice Issued Date-Time: 07/29/2018 9:25 Notice Type: IM Discharge Notice Notice Delivered To: Patient Relationship to Patient: Inventory Control Planner Name: Delivery Method: HAND - Hand Delivered Chela Days: Prior Verbal Notification: Recipient Understood Notice: Yes Recipient Signature: Yes Med Rec Note Co-signed by Attending: Coverage Notice Comment: Last DP export: 07/29/18 8:15 Patient Name: FREEMAN ALBRECHT Page [id number] at 0951 All edits/amendments must be made on the electronic document DICTATION DATE: 07/29/18950 LIQUOR STORE MANAGER: CABRERA 07/29/18950 RPT#: [id number] DC DATE: STATUS: ADM IN [facility] [address] [place] [address] END OF REPORT
--- NOTE | ~2018-06-23 | OP ---
PATIENT NAME: FREEMAN ALBRECHT MEDICAL RECORD: [id number] :[birth year] LOCATION:D. D.2137 ADMISSION DATE:06/23/18 SURGEON: TAYLOR COLEMAN MD DATE OF OPERATION: 06/24/2018 REFERRING PHYSICIAN: Dr. Lama. PREOPERATIVE DIAGNOSES: Acute renal failure, diabetes, hypertension and morbid obesity. POSTOPERATIVE DIAGNOSES: Acute renal failure, diabetes, hypertension and morbid obesity. OPERATION PERFORMED: Insertion of a right internal jugular 23-cm HemoSplit tunneled dialysis catheter with ultrasound and fluoroscopic guidance. ANESTHESIA: TIVA per LENCHO and 2% lidocaine without epinephrine. SURGEON: Taylor Coleman MD PREOPERATIVE NOTE: Mr. Albrecht is a 68-year-old super-morbidly obese white male who was admitted to the hospital here yesterday with acute renal failure, diabetes, hypertension, etc. He is also noted to be in atrial fibrillation. He is brought to the operating room now for placement of the catheter, so he can have dialysis. DESCRIPTION OF PROCEDURE: Under TIVA and monitored by LENCHO, the patient was prepped and draped in a sterile manner. Local anesthetic was injected as needed. A small incision was made on the right at the base of the neck, and with ultrasound guidance a needle and guidewire were placed in the internal jugular vein and the wire advanced on into the inferior vena cava. Dilators were passed over the wire and lastly a dilator peel-away introducer. The 23-cm HemoSplit was brought through a subcutaneous tunnel from a infraclavicular remote entry site and it was passed into the chest through the peel-away sheath as it was removed. The tip of the catheter was positioned under fluoroscopy and the right atrium. Both lumens were accessed and aspirated, free return of blood confirmed. They were flushed with saline and then hep-locked. The catheter was sutured to the skin near the entry site with 2-0 Prolene. The cervical incision was closed with interrupted inverted 3-0 Vicryl and Dermabond glue and Maxorb Ag, was dressed with Tegaderm, Cavilon. The catheter entry site was dressed with a chlorhexidine Biopatch and standard CVL dressing. The patient was then taken to the recovery room in stable condition. Blood loss was about 10 cc, none replaced. All sponges, instruments and needles were accounted for. No drain was used and no surgical specimens submitted for histopathology. TRANSINT:[id number] Voice Confirmation ID: [id number] DOCUMENT ID: [id number] OPERATIVE REPORT [id number] FREEMAN ALBRECHT JAMES MD at 1753 CC: TIFFANIE LAMA MD [id number] DICTATION DATE: 06/24/18 1633 STAFF CLIMATE SCIENTIST: 06/24/18 1708 ADM IN [id number] [place] [address]
--- NOTE | ~2018-06-23 | MORECARE ---
CASE MANAGEMENT DISCHARGE SUMMARY PATIENT: FREEMAN ALBRECHT UNIT: [id number] ADM DATE: 06/23/18 AGE: 68 : [birth year] SEX: M ROOM/BED: D.2137 AUTHOR: ASHLEYDOC PHYSICIAN: REFERRING PHYSICIAN: EMILY AMADOR MD DATE OF SERVICE: 07/31/18 Discharge Plan Patient Name: FREEMAN ALBRECHT [facility] [facility] 1950 Planned Disposition: Nursing Facility NII Cert Anticipated Discharge Date: 07/29/18 Discharge Date: Expected LOS: 36 Initial Reviewer: GLENNY Initial Review Date: 06/27/2018 Generated: 07/31/18 4:53 pm Comments DCP- Discharge Planning Updated by [id number]: Pepe Interiano on 07/31/18 2:[address] Patient Name: FREEMAN ALBRECHT Encounter No: [id number] : 1950 Primary Insurance: [facility] MEDICARE HMO or PPO Anticipated DC Date: 07-29-2018 Planned Disposition: Nursing Facility NII Cert External Planned Provider: [facility], [facility]PER[employer] C[employer] [facility]WING ROOM CARE MEDICAID BED DCP follow-up note: CM REVIEWED CHART, PT NOW ON ROOM AIR DURING DAY AND ON 3 LITERS OXYGEN WITH BIPAP AT NIGHT PER BEDSIDE NURSE. [facility] HAS ACCEPTED FOR OUTPATIENT DIALYSIS, HAVE TTS 1215 DIALYSIS SCHEDULE, DEPENDENT UPON THE [facility] OBTAINING A BERI CHAIR AND TRANSPORTATION. CM FAXED HOSPITAL UPDATE TO [facility], . [facility] ANTICIPATES DELIVERY OF NEW BERI CHAIR NEXT 08-04-18. [facility] WILL CALL WHEN NEW BERIATRIC CHAIR IS RECEIVED AND THEY ARE ABLE TO ACCEPT PT BACK IN FACILITY, THEY NOW ANTICIPATE 08-04-18. ONCE ACCEPTED AND DISCHARGE ORDERS RECEIVED, CALL NURSE REPORT TO [facility], , FAX DISCHARGE INFORMATION TO [facility], . PT TO TRANSPORT VIA AMBULANCE. SIENA HILARIO DCP- Discharge Planning Updated by [id number]: Pepe Interiano on 07/29/18 8:[address] Patient Name: FREEMAN ALBRECHT Encounter No: [id number] : 1950 Primary Insurance: [facility] MEDICARE HMO or PPO Anticipated DC Date: 07-29-2018 Planned Disposition: Nursing Facility NII Cert External Planned Provider: [facility], [employer] C[employer]WING ROOM CARE MEDICAID BED DCP follow-up note: CM REVIEWED CHART, PT CONTINUES ON 3 LITERS OXYGEN ON HIGH FLOW CANNULA. [facility] HAS ACCEPTED FOR OUTPATIENT DIALYSIS, HAVE TTS 1215 DIALYSIS SCHEDULE, DEPENDENT UPON THE [facility] OBTAINING A BERI CHAIR AND TRANSPORTATION. CM FAXED HOSPITAL UPDATE TO [facility], . CM RECEIVED CALL FROM KELLIE OF [facility], . KELLIE ADVISED THE NEW JOSSUE CHAIR WILL NOT BE IN UNTIL SATURDAY OF NEXT WEEK. RACHEL EXPLAINED THAT INSURANCE HAS PROVIDED HOSPITAL AUTHORIZATION THRU TODAY AND ANTICIPATED DISCHARGE TO THE [facility]. KELLIE WILL CHECK WITH THE SPEECH LANGUAGE THERAPIST AND CALL CM WITH UPDATE. [facility] WILL NOT ACCEPT PT UNTIL THE CHAIR IS DELIVERED TO [facility]. THE FACILITY CAN ACCOMODATE 3LITERS OXYGEN ON HIGH FLOW CANNULA. PT NOTIFIED, IMPORTANT MESSAGE FROM MEDICARE PROVIDED AND EXPLAINED. PT WANTS TO RETURN TO THE [facility] SOON POSSIBLE AND IS NOT HAPPY WITH TIME IT IS TAKING FOR THE [facility] TO MAKE ACCOMODATION FOR HIM TO RETURN "HOME". PT ASKED FOR CM ASSISTANCE IN CALLING NUMBER ON HIS CELL PHONE, CM ASSISTED; PT BEGAN TALKING TO THE [facility] REGARDING GETTING HIS BERI CHAIR, CM LEFT ROOM. [facility] WILL CALL WHEN NEW BERIATRIC CHAIR IS RECEIVED AND THEY ARE ABLE TO ACCEPT PT BACK IN FACILITY, THEY NOW ANTICIPATE 08-04-18. ONCE ACCEPTED AND DISCHARGE ORDERS RECEIVED, CALL NURSE REPORT TO [facility], , FAX DISCHARGE INFORMATION TO [facility], . PT TO TRANSPORT VIA AMBULANCE. PEPE INTERIANO, CASE MANAGEMENT DCP- Discharge Planning Updated by [id number]: Pepe Interiano on 07/23/18 9:[address] Patient Name: FREEMAN ALBRECHT Encounter No: [id number] : 1950 Primary Insurance: [facility] MEDICARE HMO or PPO Anticipated DC Date: 07-23-2018 Planned Disposition: Nursing Facility [facility] Cert External Planned Provider: [facility]M [facility]ICAID BED DCP follow-up note: CM REVIEWED CHART, PT CONTINUES ON 3 LITERS OXYGEN ON HIGH FLOW CANNULA. CM CALLED AND SPOKE TO BILL OF [facility], , WHO CHECKED WITH [facility], THEY HAVE ACCEPTED, HAVE TTS 1215 DIALYSIS SCHEDULE BUT CANNOT ADMIT FOR OUTPATIENT DIALYSIS UNTIL 07-29-18 THEY HAVE A VISITOR HAVING DIALYSIS IN THAT CHAIR TIME UNTIL 07-26-18. CM NOTIFED RENAL NURSE ILSA. CM HAS REQUESTED THAT FACILITY ACCEPT PT ON Saturday07-26-18, AFTER HOSPITAL DIALYSIS. CM WAITING ADMISSION DETERMINATION FROM [facility] WHO INFORMED CM THAT PT'S DIALYSIS SCHEDULE HAS BEEN OBTAINED: [facility], TTS, 1215 HOURS, FPC TO TRANSPORT, CAN ADMIT TO OUTPATIENT CLINIC ON 07-29-18. PEPE INTERIANO, CASE MANAGEMENT Appended by Pepe Interiano on 07/23/2018 10:54 CDT: CM CALLED AND SPOKE TO MARGARET AT [facility], . THEY WERE USING A BORROWED JOSSUE CHAIR WHICH BROKE AND THEY ORDERED A NEW ONE, WHICH SHOULD BE IN EARLY NEXT WEEK. THEY WILL NOT ACCEPT PT UNTIL [facility] THE FACILITY CAN ACCOMODATE 3LITERS OXYGEN ON HIGH FLOW CANNULA. [facility] WILL CALL WHEN NEW BERIATRIC CHAIR IS RECEIVED AND THEY ARE ABLE TO ACCEPT PT BACK IN FACILITY. ONCE ACCEPTED AND DISCHARGE ORDERS RECEIVED, CALL NURSE REPORT TO [facility], , FAX DISCHARGE INFORMATION TO [facility], . PT TO TRANSPORT VIA AMBULANCE. PEPE INTERIANO, CASE MANAGEMENT DCP- Discharge Planning Updated by [id number]: Pepe Interiano on 07/22/18 4:[address] Patient Name: FREEMAN ALBRECHT Encounter No: [id number] : 1950 Primary Insurance: [facility] MEDICARE HMO or PPO Anticipated DC Date: 07-15-2018 Planned Disposition: Nursing Facility [facility] Cert External Planned Provider[facility], LONG [facility]M C[facility] MEDICAID BED DCP follow-up note: CM REVIEWED CHART, PT CONTINUES ON 3 LITERS OXYGEN ON HIGH FLOW CANNULA. FAXED UPDATED NOTES TO [facility], . CM TO CALL AND FOLLOW UP WITH MARGARET AT [facility] WHO IS CHECKING TO SEE IF THE FACILITY CAN MEET PT'S NEEDS FOR OUTPATIENT DIALYSIS ARRANGEMENTS. Pepe Interiano, CASE MANAGEMENT Appended by Pepe Interiano on 07/22/2018 17:21 CDT: CM CALLED AND SPOKE TO LIZ, MANAGER RESOURCE FOR [facility], . LIZ REPORTS RECEIVING UPDATES YESTERDAY AND TODAY, MARGARET, SPEECH LANGUAGE THERAPIST IS OUT TODAY AND THEY HAVE MADE ARRANGEMENTS TO GET PT TO AND FROM DIALYSIS FROM THE [facility]. LIZ REPORTS HAVING DIALYSIS SCHEDULE FOR PT OF TTS AT 1215 AT [facility]. LIZ WILL DISCUSS PT'S CONDITION AND NEED FOR HIGH FLOW OXYGEN AND HAVE MARGARET CALL CM TO CONFIRM THAT THEY CAN MEET PT'S OXYGEN NEEDS FOR READMISSION TO SUPERVISOR CUTTING AND SEWING ROOM CARE AT [facility]. PT NOTIFIED AND IN AGREEMENT WITH RETURN TO THE [facility]. IMPORTANT MESSAGE FROM MEDICARE PROVIDED AND EXPLAINED, PT CONTINUES TO REPORT INABILITY TO MOVE ARMS ENOUGH TO SIGN NAME. CM WAITING ADMISSION DETERMINATION FROM [facility] WHO INFORMED CM THAT PT'S DIALYSIS SCHEDULE HAS BEEN OBTAINED: [facility], [facility], 1215 HOURS, [facility] TO TRANSPORT. SIENA HILARIO DCP- Discharge Planning Updated by [id number]: Pepe Interiano on 07/21/18 8:[address] Patient Name: FREEMAN ALBRECHT Encounter No: [id number] : 1950 Primary Insurance: [facility] MEDICARE HMO or PPO Anticipated DC Date: 07-15-2018 Planned Disposition: Nursing Facility NII Cert External Planned Provider: [facility], SNF CARE MEDICAID BED DCP follow-up note: CM REVIEWED CHART, PT NOW ON 3 LITERS OXYGEN ON HIGH FLOW CANNULA. FAXED UPDATED NOTES TO [facility], . CM TO CALL AND FOLLOW UP WITH MARGARET AT [facility] WHO IS CHECKING TO SEE IF THE FACILITY CAN MEET PT'S NEEDS FOR OUTPATIENT DIALYSIS ARRANGEMENTS. SIENA Hilario DCP- Discharge Planning Updated by [id number]: Pepe Interiano on 07/17/18 3:[address] Patient Name: FREEMAN ALBRECHT Encounter No: [id number] : 1950 Primary Insurance: [facility] MEDICARE HMO or PPO Anticipated DC Date: 07-15-2018 Planned Disposition: Nursing Facility [facility] Cert External Planned Provider: [facility], SNF CARE MEDICAID BED DCP follow-up note: CM CALLED FOR SPEECH LANGUAGE THERAPIST MARGARET OF [facility], , SPOKE TO KELLIE MARGARET NOT IN TODAY. FAXED UPDATE HAS BEEN RECEIVED BY FACILITY TODAY. CM INFORMED OF DOCTORS PLAN TO DISCHARGE ONCE OXYGEN LEVEL CAN BE PROVIDED SAFELY BY FACILITY. KELLIE WILL NOTIFY MARGARET TOMORROW, DISCUSS OXYGEN NEEDS WITH DIALYSIS UNIT AND CALL CM WITH DETERMINATION. CM SPOKE TO PT IN ROOM, PT WANTS TO GO BACK TO THE [facility] WHERE HE LIVES. IMPORTANT MESSAGE FROM MEDICARE PROVIDED AND DISCUSSED. CM WAITING RETURN CALL FROM MARGARET OF [facility]. Pepe Interiano, SIENA MANGEMENT DCP- Discharge Planning Updated by [id number]: Pepe Interiano on 07/15/18 5:[address] Patient Name: FREEMAN ALBRECHT Encounter No: [id number] : 1950 Primary Insurance: [facility] MEDICARE HMO or PPO Anticipated DC Date: 07-15-2018 Planned Disposition: Nursing Facility [facility] Cert External Planned Provider: [facility] follow-up note: CM REVIEWED CHART, PT NOW ON 10 LITERS OXYGEN ON HIGH FLOW CANNULA. FAXED UPDATED NOTES TO [facility], . CM TO CALL AND FOLLOW UP WITH MARGARET AT [facility] WHO IS CHECKING TO SEE IF THE FACILITY CAN MEET PT'S NEEDS FOR OUTPATIENT DIALYSIS ARRANGEMENTS. Pepe Interiano, CASE MANAGEMENT Appended by Pepe Interiano on 07/15/2018 18:24 CDT: RACHEL SPOKE TO BILL ANN [facility] WHO REPORTS THAT THE OUTPATIENT DIALYSIS CLINIC PLANS TO ACCEPT PT FOR OUTPATIENT DIALYSIS SERVICES ONCE THE [facility] HAS ARRANGED APPROPRIATE TRANSPORT CHAIR AND TRANSPORTATION TO AND FROM DIALYSIS. BILL ASKED TO BE NOTIFIED ONCE THIS HAS BEEN VERIFIED TO COMPLETE OUTPATIENT DIALYSIS CLINIC ARRANGEMENTS. CM NOTIFED BILL OF PT'S DECLINE AND HIGH OXYGEN NEED AT THIS TIME. CM TO KEEP BOTH BILL OF [facility] AND MARGARET ANN [facility] ADVISED OF PT'S CONDITION AND FOLLOW UP WITH MARGARET AT [facility] WHO IS CHECKING TO SEE IF THE FACILITY CAN MEET PT'S NEEDS FOR OUTPATIENT DIALYSIS ARRANGEMENTS. PEPE INTERIANO, CASE MANAGEMENT DCP- Discharge Planning Updated by [id number]: Pepe Interiano on 07/02/18 11:[address] Patient Name: FREEMAN ALBRECHT Encounter No: [id number] : 1950 Primary Insurance: [facility] MEDICARE HMO or PPO Anticipated DC Date: Planned Disposition: Nursing Facility NII Cert External Planned Provider: [facility], SNF CARE MEDICAID BED DCP follow-up note: CM RECEIVED MESSAGE FROM BILL BENSON OF [facility], PT CAN ATTEND OUTPATIENT DIALYSIS AT [facility] [place] IF HE HAS BERIATRIC JOSSUE CHAIR THAT HE CAN SIT IN AT THE UNIT FOR DURATION OF DIALYSIS. CM CALLED AND SPOKE TO SPEECH LANGUAGE THERAPIST MARGARET OF [facility], , INFORMED OF NEED OF OUTPATIENT DIALYSIS AND BERI JOSSUE CHAIR AND TRANSPORTATION TO AND FROM OUTPATIENT DAILYSIS. MARGARET IS NOT SURE IF THEY WILL BE ABLE TO ACCOMODATE PT'S NEEDS BUT WILL EXPLORE OPTIONS NOW. PT HAS BEEN UP TO HIS HOVERROUND SCOOTER AT THE [facility] PRIOR TO HOSPITALIZATION. PT'S BROTHER IS NOT ABLE TO MAKE DECISIONS FOR PT AND PT HAS NO OTHER LIVING FAMILY PER MARGARET. CM MET WITH PT IN ROOM, PT ORIENTED TO SELF AND PLACE AND SITUATION. PT DOES WANT OUTPATIENT DIALYSIS, DOES NOT WANT TO MOVE FROM HIS [facility] WHERE HE LIVES WITH HIS BROTHER, AND REPORTS THAT HE IS NORMALLY UP TO HIS HOVERROUND SCOOTER EVERY DAY REPORTING THE [facility] HAS A LIFT TO GET HIM UP. PT REPORTS HE PROVIDED HIS FRIEND ROD DAMIAN WITH POWER OF [employer] IF IT IS EVER NEEDED. CM SPOKE TO RODYUDY SALGADO, PT'S FRIEND AT [phone]. ROD STATES THAT PT GAVE HIM A PACKET OF INFORMATION TO BE OPENED IN EVENT OF PT'S BUT HE HAS NEVER LOOKED INSIDE TO KNOW WHAT IS IN THERE. BOTH PT AND PT'S BROTHER ALWAYS TOLD HIM THAT IF PT'S BROTHER IS NOT ABLE TO MAKE DECISIONS, ROD WOULD BE IT. ROD WILL LOOK IN THE PACKET OF INFORMATION TO SEE IF HE HAS MEDICAL POWER OF [employer] IF IT IS EVER NEEDED. CM FAXED UPDATED NOTES TO [facility], . MARGARET AT [facility] IS CHECKING TO SEE IF THE FACILITY CAN MEET PT'S NEEDS FOR OUTPATIENT DIALYSIS ARRANGEMENTS. Pepe Interiano CASE MANAGEMENT DCP- Discharge Planning Updated by [id number]: Pepe Interiano on 07/01/18 4:[address] Patient Name: FREEMAN ALBRECHT Encounter No: [id number] : 1950 Primary Insurance: [facility] MEDICARE HMO or PPO Anticipated DC Date: Planned Disposition: Nursing Facility [facility] Cert External Planned Provider: [facility], LONG TERM CARE MEDICAID BED DCP follow-up note: CM SPOKE TO ROD DAMIAN, PT'S FRIEND AT N[facility]ES [facility]ATION. ROD BELIEVES PT HAS GIVEN UP ON LIFE. ROD IS CONCERNED OF HOW PT WILL GET TO AND FROM DILALYSIS WHILE AT [facility] AND ASKED CM TO CONTACT THE [facility] TO DISCUSS THIS ROD FEELS THAT PT MAY NOT BE ABLE TO TRANSPORT FOR DIAYSIS OR SIT IN CHAIR FOR DIALYSIS IN A CLINIC. ROD PROVIDED HIS CONTACT PHONE IF NEEDED, . CM FAXED UPDATED NOTES TO [facility], AND WILL CALL FACILITY TOMORROW TO DISCUSS OUTPATIENT DIALYSIS. SIENA Hilario DCP- Discharge Planning Updated by [id number]: Pepe Interiano on 06/27/18 11:[address] Patient Name: FREEMAN ALBRECHT Admission Status: Elective Accout number: [id number] Admission Date: 06-23-2018 : 1950 Admission Diagnosis:ACUTE KIDNEY FAILURE, UNSPECIFIED Attending: Emily Amador Current LOS: 4 Anticipated DC Date: Planned Disposition: Nursing Facility [facility] Cert Primary Insurance: [facility] MEDICARE HMO or PPO PLANNED EXTERNAL PROVIDER: [facility], LONG TERM CARE MEDICAID BED Discharge Planning Comments: * Is the patient Alert and Oriented? No 0 * How many steps to enter\\exit or inside your home? NONE 0 * PCP DR. ESCAMILLA 0 * [facility] * Preadmission Environment [employer] Residential 0 * Facility Name [facility] 0 * ADLs Total Dependent 0 * Equipment Other 0 * Other Equipment ALL MEDICAL EQUIPMENT PROVIDED BY FACILITY 0 * List name and contact numbers for known caregivers / representatives who currently or will assist patient after discharge: ROD SALGADO, DEVORA, 0 * Verbal permission to speak to the caregivers and representatives has been obtained from the patient. N/A 0 * Community resources currently utilized None 0 * Please name any agencies selected above. NONE 0 * Additional services required to return to the preadmission environment? No 0 * Can the patient safely return to the preadmission environment? Yes 0 * Has this patient been hospitalized within the prior 30 days at any hospital? No 0 CM ATTEMPTED TO ASSESS PT IN ROOM FOR DISCHARGE PLANNING AND NEEDS. PT REPORTS LIVING AT HOME ALONE AND INDEPENDENTLY. PT FALLING ASLEEP DURING CONSULT AND TOOK LONG PERIODS OF TIME AND CM CONSTANTLY AWAKING PT AND REPEATING QUESTIONS TO GET ANY RESPONSE. CM REVIEWED CHART WHICH INDICATES PT TRANSFERRED FROM [facility] AND ADMITTED TO THEM FROM [facility]." CM CALLED PT'S LISTED EMERGENCY CONTACT, BROTHER HENRY, . THE NUMBER WAS ANSWERED AT [facility], CM SPOKE TO PT'S [facility] NURSE, CORIE, WHO INFORMED CM THAT BOTH PT AND PT'S BROTHER, MERCEDES, ARE IN SUPERVISOR CUTTING AND SEWING ROOM CARE AT THE [facility]. PT DOES NOT CURRENTLY HAVE OUTPATIENT DIALYSIS, PT IS VERY NON COMPLIANT WITH FLUID RESTRICTIONS. PT IS TOTAL CARE AT THE F[facility] AND THEY PLAN TO ACCEPT BACK. CM FAXED UPDATE TO [facility], . FOR DISCHARGE, FAX DISCHARGE INFORMATION TO [facility], ; NURSE REPORT TO BE CALLED TO [facility], . PT TO TRANSPORT VIA AMBULANCE. Bindery Worker: Pepe Interiano DCPIA - Discharge Planning Initial Assessment Updated by [id number]: Pepe Interiano on 07/02/18 11:42 am * Is the patient Alert and Oriented? No * How many steps to enter\\exit or inside your home? NONE * PCP DR. ESCAMILLA * Pharmacy [facility] * Preadmission Environment [facility] Residential * Facility Name [facility] * ADLs Partial Dependent * Partial ADLs (Assistance needed) Bathing Dressing Medication Management Toileting Transfers * Equipment Other * Other Equipment ALL MEDICAL EQUIPMENT PROVIDED BY FACILITY * List name and contact numbers for known caregivers / representatives who currently or will assist patient after discharge: ROD SALGADO, DEVORA, * Verbal permission to speak to the caregivers and representatives has been obtained from the patient. N/A * Community resources currently utilized None * Please name any agencies selected above. NONE * Additional services required to return to the preadmission environment? No * Can the patient safely return to the preadmission environment? Yes * Has this patient been hospitalized within the prior 30 days at any hospital? No Coverage Notice Reviewer: GLENNY Interiano Notice Issued Date-Time: 07/17/2018 16:00 Notice Type: IM Discharge Notice Notice Delivered To: Patient Relationship to Patient: Gearcase Assembler Name: Delivery Method: HAND - Hand Delivered Chela Days: Prior Verbal Notification: Recipient Understood Notice: Yes Recipient Signature: Med Rec Note Co-signed by Attending: Coverage Notice Comment: Reviewer: GLENNY Interiano Notice Issued Date-Time: 07/22/2018 16:30 Notice Type: IM Discharge Notice Notice Delivered To: Patient Relationship to Patient: Gearcase Assembler Name: Delivery Method: HAND - Hand Delivered Chela Days: Prior Verbal Notification: Recipient Understood Notice: Yes Recipient Signature: Med Rec Note Co-signed by Attending: Coverage Notice Comment: Reviewer: GLENNY Interiano Notice Issued Date-Time: 07/29/2018 9:25 Notice Type: IM Discharge Notice Notice Delivered To: Patient Relationship to Patient: Gearcase Assembler Name: Delivery Method: HAND - Hand Delivered Chela Days: Prior Verbal Notification: Recipient Understood Notice: Yes Recipient Signature: Yes Med Rec Note Co-signed by Attending: Coverage Notice Comment: Last DP export: 07/29/18 8:51 Patient Name: FREEMAN ALBRECHT Page [id number] at 1554 All edits/amendments must be made on the electronic document DICTATION DATE: 07/31/181552 E LEARNING SPECIALIST: CABRERA 07/31/181552 RPT#: [id number] DC DATE: STATUS: ADM IN [facility] [address] [place] [address] END OF REPORT
--- NOTE | ~2018-06-23 | MORECARE ---
CASE MANAGEMENT DISCHARGE SUMMARY PATIENT: FREEMAN ALBRECHT UNIT: [id number] ADM DATE: 06/23/18 AGE: 68 : 52 SEX: M ROOM/BED: D.2137 AUTHOR: ASHLEYDOC PHYSICIAN: REFERRING PHYSICIAN: EMILY AMADOR MD DATE OF SERVICE: 08/04/18 Discharge Plan Patient Name: FREEMAN ALBRECHT [facility] [facility] 1950 Planned Disposition: Nursing Facility NII Cert Anticipated Discharge Date: 08/05/18 Discharge Date: Expected LOS: 43 Initial Reviewer: GLENNY Initial Review Date: 06/27/2018 Generated: 08/04/18 12:55 pm Comments DCP- Discharge Planning Updated by [email or web address]: Pepe Interiano on 07/31/18 2:[address] Patient Name: FREEMAN ALBRECHT Encounter No: [id number] : 1950 Primary Insurance: [facility] [place] or PPO Anticipated DC Date: 07-29-2018 Planned Disposition: Nursing Facility NII Cert External Planned Provider: [facility], ASSISTED CARE MEDICAID BED DCP follow-up note: CM REVIEWED CHART, PT NOW ON ROOM AIR DURING DAY AND ON 3 LITERS OXYGEN WITH BIPAP AT NIGHT PER BEDSIDE NURSE. [facility] HAS ACCEPTED FOR OUTPATIENT DIALYSIS, HAVE TTS 1215 DIALYSIS SCHEDULE, DEPENDENT UPON THE CUSTODIAL OBTAINING A BERI CHAIR AND TRANSPORTATION. CM FAXED HOSPITAL UPDATE TO [facility], . CUSTODIAL ANTICIPATES DELIVERY OF NEW BERI CHAIR NEXT 08-04-18. [facility] WILL CALL WHEN NEW BERIATRIC CHAIR IS RECEIVED AND THEY ARE ABLE TO ACCEPT PT BACK IN FACILITY, THEY NOW ANTICIPATE 08-04-18. ONCE ACCEPTED AND DISCHARGE ORDERS RECEIVED, CALL NURSE REPORT TO [facility], , FAX DISCHARGE INFORMATION TO [facility], . PT TO TRANSPORT VIA AMBULANCE. SIENA HILARIO DCP- Discharge Planning Updated by [id number]: Pepe Interiano on 07/29/18 8:[address] Patient Name: FREEMAN ALBRECHT Encounter No: [id number] : 1950 Primary Insurance: [facility] [place] or PPO Anticipated DC Date: 07-29-2018 Planned Disposition: Nursing Facility NII Cert External Planned Provider: [facility], HUMAN SERVICES CARE SPECIALIST CARE MEDICAID BED DCP follow-up note: CM REVIEWED CHART, PT CONTINUES ON 3 LITERS OXYGEN ON HIGH FLOW CANNULA. [facility] HAS ACCEPTED FOR OUTPATIENT DIALYSIS, HAVE TTS 1215 DIALYSIS SCHEDULE, DEPENDENT UPON THE CUSTODIAL OBTAINING A BERI CHAIR AND TRANSPORTATION. CM FAXED HOSPITAL UPDATE TO [facility], . CM RECEIVED CALL FROM KELLIE OF [facility], . KELLIE ADVISED THE NEW JOSSUE CHAIR WILL NOT BE IN UNTIL SATURDAY OF NEXT WEEK. RACHEL EXPLAINED THAT INSURANCE HAS PROVIDED HOSPITAL AUTHORIZATION THRU TODAY AND ANTICIPATED DISCHARGE TO THE CUSTODIAL. KELLIE WILL CHECK WITH THE AEROSPACE PROJECT MANAGER AND CALL CM WITH UPDATE. [facility] WILL NOT ACCEPT PT UNTIL THE CHAIR IS DELIVERED TO FACLITY. THE FACILITY CAN ACCOMODATE 3LITERS OXYGEN ON HIGH FLOW CANNULA. PT NOTIFIED, IMPORTANT MESSAGE FROM MEDICARE PROVIDED AND EXPLAINED. PT WANTS TO RETURN TO THE CUSTODIAL SOON POSSIBLE AND IS NOT HAPPY WITH TIME IT IS TAKING FOR THE CUSTODIAL TO MAKE ACCOMODATION FOR HIM TO RETURN "HOME". PT ASKED FOR CM ASSISTANCE IN CALLING NUMBER ON HIS CELL PHONE, CM ASSISTED; PT BEGAN TALKING TO THE CUSTODIAL REGARDING GETTING HIS BERI CHAIR, CM LEFT ROOM. [facility] WILL CALL WHEN NEW BERIATRIC CHAIR IS RECEIVED AND THEY ARE ABLE TO ACCEPT PT BACK IN FACILITY, THEY NOW ANTICIPATE 08-04-18. ONCE ACCEPTED AND DISCHARGE ORDERS RECEIVED, CALL NURSE REPORT TO [facility], , FAX DISCHARGE INFORMATION TO [facility], . PT TO TRANSPORT VIA AMBULANCE. PEPE INTERIANO, CASE MANAGEMENT DCP- Discharge Planning Updated by [id number]: Pepe Interiano on 07/23/18 9:[address] Patient Name: FREEMAN ALBRECHT Encounter No: [id number] : 1950 Primary Insurance: [facility] [place] or PPO Anticipated DC Date: 07-23-2018 Planned Disposition: Nursing Facility [facility] Cert External Planned Provider[facility] LONG [facility]M CARE MEDICAID BED DCP follow-up note: CM REVIEWED CHART, PT CONTINUES ON 3 LITERS OXYGEN ON HIGH FLOW CANNULA. CM CALLED AND SPOKE TO BILL OF [facility], , WHO CHECKED WITH [facility], THEY HAVE ACCEPTED, HAVE TTS 1215 DIALYSIS SCHEDULE BUT CANNOT ADMIT FOR OUTPATIENT DIALYSIS UNTIL 07-29-18 THEY HAVE A VISITOR HAVING DIALYSIS IN THAT CHAIR TIME UNTIL 07-26-18. CM NOTIFED RENAL NURSE ILSA. CM HAS REQUESTED THAT FACILITY ACCEPT PT ON Saturday07-26-18, AFTER HOSPITAL DIALYSIS. CM WAITING ADMISSION DETERMINATION FROM [facility] WHO INFORMED CM THAT PT'S DIALYSIS SCHEDULE HAS BEEN OBTAINED: [facility], TTS, 1215 HOURS, CUSTODIAL TO TRANSPORT, CAN ADMIT TO OUTPATIENT CLINIC ON 07-29-18. PEPE INTERIANO, CASE MANAGEMENT Appended by Pepe Interiano on 07/23/2018 10:54 CDT: CM CALLED AND SPOKE TO MARGARET AT [facility], . THEY WERE USING A BORROWED JOSSUE CHAIR WHICH BROKE AND THEY ORDERED A NEW ONE, WHICH SHOULD BE IN EARLY NEXT WEEK. THEY WILL NOT ACCEPT PT UNTIL [facility] THE FACILITY CAN ACCOMODATE 3LITERS OXYGEN ON HIGH FLOW CANNULA. [facility] WILL CALL WHEN NEW BERIATRIC CHAIR IS RECEIVED AND THEY ARE ABLE TO ACCEPT PT BACK IN FACILITY. ONCE ACCEPTED AND DISCHARGE ORDERS RECEIVED, CALL NURSE REPORT TO [facility], , FAX DISCHARGE INFORMATION TO [facility], . PT TO TRANSPORT VIA AMBULANCE. PEPE INTERIANO, CASE MANAGEMENT DCP- Discharge Planning Updated by [id number]: Pepe Interiano on 07/22/18 4:[address] Patient Name: FREEMAN ALBRECHT Encounter No: [id number] : 1950 Primary Insurance: [facility] [place] or PPO Anticipated DC Date: 07-15-2018 Planned Disposition: Nursing Facility [facility] Cert External Planned Provider[facility] LONG [facility]M CARE MEDICAID BED DCP follow-up note: CM REVIEWED CHART, PT CONTINUES ON 3 LITERS OXYGEN ON HIGH FLOW CANNULA. FAXED UPDATED NOTES TO [facility], . CM TO CALL AND FOLLOW UP WITH MARGARET AT [facility] WHO IS CHECKING TO SEE IF THE FACILITY CAN MEET PT'S NEEDS FOR OUTPATIENT DIALYSIS ARRANGEMENTS. Pepe Interiano, CASE MANAGEMENT Appended by Pepe Interiano on 07/22/2018 17:21 CDT: CM CALLED AND SPOKE TO LIZ, SUPERVISOR PREP FOR [facility], . LIZ REPORTS RECEIVING UPDATES YESTERDAY AND TODAY, MARGARET, AEROSPACE PROJECT MANAGER IS OUT TODAY AND THEY HAVE MADE ARRANGEMENTS TO GET PT TO AND FROM DIALYSIS FROM THE CUSTODIAL. LIZ REPORTS HAVING DIALYSIS SCHEDULE FOR PT OF TTS AT 1215 AT [facility]. LIZ WILL DISCUSS PT'S CONDITION AND NEED FOR HIGH FLOW OXYGEN AND HAVE MARGARET CALL CM TO CONFIRM THAT THEY CAN MEET PT'S OXYGEN NEEDS FOR READMISSION TO HUMAN SERVICES CARE SPECIALIST CARE AT [facility]. PT NOTIFIED AND IN AGREEMENT WITH RETURN TO THE CUSTODIAL. IMPORTANT MESSAGE FROM MEDICARE PROVIDED AND EXPLAINED, PT CONTINUES TO REPORT INABILITY TO MOVE ARMS ENOUGH TO SIGN NAME. CM WAITING ADMISSION DETERMINATION FROM [facility] WHO INFORMED CM THAT PT'S DIALYSIS SCHEDULE HAS BEEN OBTAINED: [facility], [facility], 1215 HOURS, CUSTODIAL TO TRANSPORT. SIENA HILARIO DCP- Discharge Planning Updated by [id number]: Pepe Interiano on 07/21/18 8:[address] Patient Name: FREEMAN ALBRECHT Encounter No: [id number] : 1950 Primary Insurance: [facility] [place] H[place] or PPO Anticipated DC Date: 07-15-2018 Planned Disposition: Nursing Facility NII Cert External Planned Provider: [facility], HUMAN SERVICES CARE SPECIALIST CARE MEDICAID BED DCP follow-up note: CM REVIEWED CHART, PT NOW ON 3 LITERS OXYGEN ON HIGH FLOW CANNULA. FAXED UPDATED NOTES TO [facility], . CM TO CALL AND FOLLOW UP WITH MARGARET AT [facility] WHO IS CHECKING TO SEE IF THE FACILITY CAN MEET PT'S NEEDS FOR OUTPATIENT DIALYSIS ARRANGEMENTS. SIENA Hilario DCP- Discharge Planning Updated by [id number]: Pepe Interiano on 07/17/18 3:[address] Patient Name: FREEMAN ALBRECHT Encounter No: [id number] : 1950 Primary Insurance: [facility] [place] H[place] or PPO Anticipated DC Date: 07-15-2018 Planned Disposition: Nursing Facility [facility] Cert External Planned Provider: [facility], ASSISTED CARE MEDICAID BED DCP follow-up note: CM CALLED FOR AEROSPACE PROJECT MANAGER MARGARET OF [facility], , SPOKE TO KELLIE MARGARET NOT IN TODAY. FAXED UPDATE HAS BEEN RECEIVED BY FACILITY TODAY. CM INFORMED OF DOCTORS PLAN TO DISCHARGE ONCE OXYGEN LEVEL CAN BE PROVIDED SAFELY BY FACILITY. KELLIE WILL NOTIFY MARGARET TOMORROW, DISCUSS OXYGEN NEEDS WITH DIALYSIS UNIT AND CALL CM WITH DETERMINATION. CM SPOKE TO PT IN ROOM, PT WANTS TO GO BACK TO THE CUSTODIAL WHERE HE LIVES. IMPORTANT MESSAGE FROM MEDICARE PROVIDED AND DISCUSSED. CM WAITING RETURN CALL FROM MARGARET OF [facility]. Pepe Interiano, SIENA MANGEMENT DCP- Discharge Planning Updated by [id number]: Pepe Interiano on 07/15/18 5:[address] Patient Name: FREEMAN ALBRECHT Encounter No: [id number] : 1950 Primary Insurance: [facility] [place] or PPO Anticipated DC Date: 07-15-2018 Planned Disposition: Nursing Facility [facility] Cert External Planned Provider: [facility] DCP follow-up note: CM REVIEWED CHART, PT NOW ON 10 LITERS OXYGEN ON HIGH FLOW CANNULA. FAXED UPDATED NOTES TO [facility], . CM TO CALL AND FOLLOW UP WITH MARGARET AT [facility] WHO IS CHECKING TO SEE IF THE FACILITY CAN MEET PT'S NEEDS FOR OUTPATIENT DIALYSIS ARRANGEMENTS. Pepe Interiano, CASE MANAGEMENT Appended by Pepe Interiano on 07/15/2018 18:24 CDT: RACHEL SPOKE TO BILL ANN [facility] WHO REPORTS THAT THE OUTPATIENT DIALYSIS CLINIC PLANS TO ACCEPT PT FOR OUTPATIENT DIALYSIS SERVICES ONCE THE CUSTODIAL HAS ARRANGED APPROPRIATE TRANSPORT CHAIR AND TRANSPORTATION TO AND FROM DIALYSIS. BILL ASKED TO BE NOTIFIED ONCE THIS HAS BEEN VERIFIED TO COMPLETE OUTPATIENT DIALYSIS CLINIC ARRANGEMENTS. CM NOTIFED BILL OF PT'S DECLINE AND HIGH OXYGEN NEED AT THIS TIME. CM TO KEEP BOTH BILL OF [facility] AND MARGARET ANN [facility] ADVISED OF PT'S CONDITION AND FOLLOW UP WITH MARGARET AT [facility] WHO IS CHECKING TO SEE IF THE FACILITY CAN MEET PT'S NEEDS FOR OUTPATIENT DIALYSIS ARRANGEMENTS. PEPE INTERIANO, CASE MANAGEMENT DCP- Discharge Planning Updated by [id number]: Pepe Interiano on 07/02/18 11:[address] Patient Name: FREEMAN ALBRECHT Encounter No: [id number] : 1950 Primary Insurance: [facility] [place] H[place] or PPO Anticipated DC Date: Planned Disposition: Nursing Facility NII Cert External Planned Provider: [facility], HUMAN SERVICES CARE SPECIALIST CARE MEDICAID BED DCP follow-up note: CM RECEIVED MESSAGE FROM BILL BENSON OF [facility], PT CAN ATTEND OUTPATIENT DIALYSIS AT [facility] IN [place] IF HE HAS BERIATRIC JOSSUE CHAIR THAT HE CAN SIT IN AT THE UNIT FOR DURATION OF DIALYSIS. CM CALLED AND SPOKE TO AEROSPACE PROJECT MANAGER MARGARET OF [facility], , INFORMED OF NEED OF OUTPATIENT DIALYSIS AND BERI JOSSUE CHAIR AND TRANSPORTATION TO AND FROM OUTPATIENT DAILYSIS. MARGARET IS NOT SURE IF THEY WILL BE ABLE TO ACCOMODATE PT'S NEEDS BUT WILL EXPLORE OPTIONS NOW. PT HAS BEEN UP TO HIS HOVERROUND SCOOTER AT THE CUSTODIAL PRIOR TO HOSPITALIZATION. PT'S BROTHER IS NOT ABLE TO MAKE DECISIONS FOR PT AND PT HAS NO OTHER LIVING FAMILY PER MARGARET. CM MET WITH PT IN ROOM, PT ORIENTED TO SELF AND PLACE AND SITUATION. PT DOES WANT OUTPATIENT DIALYSIS, DOES NOT WANT TO MOVE FROM HIS CUSTODIAL WHERE HE LIVES WITH HIS BROTHER, AND REPORTS THAT HE IS NORMALLY UP TO HIS HOVERROUND SCOOTER EVERY DAY REPORTING THE CUSTODIAL HAS A LIFT TO GET HIM UP. PT REPORTS HE PROVIDED HIS FRIEND ROD DAMIAN WITH POWER OF SPECIAL EDUCATION PROFESSIONAL IF IT IS EVER NEEDED. CM SPOKE TO RODYUYD SALGADO, PT'S FRIEND AT [phone]. ROD STATES THAT PT GAVE HIM A PACKET OF INFORMATION TO BE OPENED IN EVENT OF PT'S BUT HE HAS NEVER LOOKED INSIDE TO KNOW WHAT IS IN THERE. BOTH PT AND PT'S BROTHER ALWAYS TOLD HIM THAT IF PT'S BROTHER IS NOT ABLE TO MAKE DECISIONS, ROD WOULD BE IT. ROD WILL LOOK IN THE PACKET OF INFORMATION TO SEE IF HE HAS MEDICAL POWER OF SPECIAL EDUCATION PROFESSIONAL IF IT IS EVER NEEDED. CM FAXED UPDATED NOTES TO [facility], . MARGARET AT [facility] IS CHECKING TO SEE IF THE FACILITY CAN MEET PT'S NEEDS FOR OUTPATIENT DIALYSIS ARRANGEMENTS. Pepe Interiano CASE MANAGEMENT DCP- Discharge Planning Updated by [id number]: Pepe Interiano on 07/01/18 4:[address] Patient Name: FREEMAN ALBRECHT Encounter No: [id number] : 1950 Primary Insurance: [facility] [place] H[place] or PPO Anticipated DC Date: Planned Disposition: Nursing Facility [facility] Cert External Planned Provider: [facility], LONG TERM CARE MEDICAID BED DCP follow-up note: CM SPOKE TO ROD DAMIAN, PT'S FRIEND AT NURSES STATION. ROD BELIEVES PT HAS GIVEN UP ON LIFE. ROD IS CONCERNED OF HOW PT WILL GET TO AND FROM DILALYSIS WHILE AT CUSTODIAL AND ASKED CM TO CONTACT THE CUSTODIAL TO DISCUSS THIS ROD FEELS THAT PT MAY NOT BE ABLE TO TRANSPORT FOR DIAYSIS OR SIT IN CHAIR FOR DIALYSIS IN A CLINIC. ROD PROVIDED HIS CONTACT PHONE IF NEEDED, . CM FAXED UPDATED NOTES TO [facility], AND WILL CALL FACILITY TOMORROW TO DISCUSS OUTPATIENT DIALYSIS. SIENA Hilario DCP- Discharge Planning Updated by [id number]: Pepe Interiano on 06/27/18 11:[address] Patient Name: FREEMAN ALBRECHT Admission Status: Elective Accout number: [id number] Admission Date: 06-23-2018 : 1950 Admission Diagnosis:ACUTE KIDNEY FAILURE, UNSPECIFIED Attending: Emily Amador Current LOS: 4 Anticipated DC Date: Planned Disposition: Nursing Facility [facility] Cert Primary Insurance: [facility] [place] HMO or PPO PLANNED EXTERNAL PROVIDER: [facility], LONG TERM CARE MEDICAID BED Discharge Planning Comments: * Is the patient Alert and Oriented? No 0 * How many steps to enter\\exit or inside your home? NONE 0 * PCP DR. ESCAMILLA 0 * [facility] * Preadmission Environment [facility] 0 * Facility Name [facility] 0 * ADLs Total Dependent 0 * Equipment Other 0 * Other Equipment ALL MEDICAL EQUIPMENT PROVIDED BY FACILITY 0 * List name and contact numbers for known caregivers / representatives who currently or will assist patient after discharge: ROD SALGADO, DEVORA, 0 * Verbal permission to speak to the caregivers and representatives has been obtained from the patient. N/A 0 * Community resources currently utilized None 0 * Please name any agencies selected above. NONE 0 * Additional services required to return to the preadmission environment? No 0 * Can the patient safely return to the preadmission environment? Yes 0 * Has this patient been hospitalized within the prior 30 days at any hospital? No 0 CM ATTEMPTED TO ASSESS PT IN ROOM FOR DISCHARGE PLANNING AND NEEDS. PT REPORTS LIVING AT HOME ALONE AND INDEPENDENTLY. PT FALLING ASLEEP DURING CONSULT AND TOOK LONG PERIODS OF TIME AND CM CONSTANTLY AWAKING PT AND REPEATING QUESTIONS TO GET ANY RESPONSE. CM REVIEWED CHART WHICH INDICATES PT TRANSFERRED FROM [facility] AND ADMITTED TO THEM FROM "CUSTODIAL." CM CALLED PT'S LISTED EMERGENCY CONTACT, BROTHER HENRY, . THE NUMBER WAS ANSWERED AT [facility], CM SPOKE TO PT'S CUSTODIAL NURSE, CORIE, WHO INFORMED CM THAT BOTH PT AND PT'S BROTHER, MERCEDES, ARE IN HUMAN SERVICES CARE SPECIALIST CARE AT THE CUSTODIAL. PT DOES NOT CURRENTLY HAVE OUTPATIENT DIALYSIS, PT IS VERY NON COMPLIANT WITH FLUID RESTRICTIONS. PT IS TOTAL CARE AT THE CUSTODIAL AND THEY PLAN TO ACCEPT BACK. CM FAXED UPDATE TO [facility], . FOR DISCHARGE, FAX DISCHARGE INFORMATION TO [facility], ; NURSE REPORT TO BE CALLED TO [facility], . PT TO TRANSPORT VIA AMBULANCE. Study Abroad Advisor: Pepe Interiano DCPIA - Discharge Planning Initial Assessment Updated by [id number]: Pepe Interiano on 07/02/18 11:42 am * Is the patient Alert and Oriented? No * How many steps to enter\\exit or inside your home? NONE * PCP DR. ESCAMILLA * Pharmacy [facility] * Preadmission Environment [facility] * Facility Name [facility] * ADLs Partial Dependent * Partial ADLs (Assistance needed) Bathing Dressing Medication Management Toileting Transfers * Equipment Other * Other Equipment ALL MEDICAL EQUIPMENT PROVIDED BY FACILITY * List name and contact numbers for known caregivers / representatives who currently or will assist patient after discharge: ROD SALGADO, DEVORA, * Verbal permission to speak to the caregivers and representatives has been obtained from the patient. N/A * Community resources currently utilized None * Please name any agencies selected above. NONE * Additional services required to return to the preadmission environment? No * Can the patient safely return to the preadmission environment? Yes * Has this patient been hospitalized within the prior 30 days at any hospital? No Coverage Notice Reviewer: GLENNY Interiano Notice Issued Date-Time: 07/17/2018 16:00 Notice Type: IM Discharge Notice Notice Delivered To: Patient Relationship to Patient: Electrotyper Apprentice Name: Delivery Method: HAND - Hand Delivered Chela Days: Prior Verbal Notification: Recipient Understood Notice: Yes Recipient Signature: Med Rec Note Co-signed by Attending: Coverage Notice Comment: Reviewer: GLENNY Interiano Notice Issued Date-Time: 07/22/2018 16:30 Notice Type: IM Discharge Notice Notice Delivered To: Patient Relationship to Patient: Electrotyper Apprentice Name: Delivery Method: HAND - Hand Delivered Chela Days: Prior Verbal Notification: Recipient Understood Notice: Yes Recipient Signature: Med Rec Note Co-signed by Attending: Coverage Notice Comment: Reviewer: GLENNY Interiano Notice Issued Date-Time: 07/29/2018 9:25 Notice Type: IM Discharge Notice Notice Delivered To: Patient Relationship to Patient: Electrotyper Apprentice Name: Delivery Method: HAND - Hand Delivered Chela Days: Prior Verbal Notification: Recipient Understood Notice: Yes Recipient Signature: Yes Med Rec Note Co-signed by Attending: Coverage Notice Comment: Reviewer: GLENNY Interiano Notice Issued Date-Time: 08/04/2018 11:40 Notice Type: IM Discharge Notice Notice Delivered To: Patient Relationship to Patient: Electrotyper Apprentice Name: Delivery Method: HAND - Hand Delivered Chela Days: Prior Verbal Notification: Recipient Understood Notice: Yes Recipient Signature: Yes Med Rec Note Co-signed by Attending: Coverage Notice Comment: Last DP export: 07/31/18 2:54 Patient Name: FREEMAN ALBRECHT Page [id number] at 1155 All edits/amendments must be made on the electronic document DICTATION DATE: 08/04/181154 ANALOG DESIGN ENGINEER: CABRERA 08/04/181154 RPT#: [id number] DC DATE: STATUS: ADM IN [facility] [address] [place] [address] END OF REPORT
--- NOTE | ~2018-06-23 | MORECARE ---
CASE MANAGEMENT DISCHARGE SUMMARY PATIENT: FREEMAN ALBRECHT UNIT: [id number] ADM DATE: 06/23/18 AGE: 68 : [birth year] SEX: M ROOM/BED: D.7627 AUTHOR: ASHLEY,DOC PHYSICIAN: REFERRING PHYSICIAN: EMILY AMADOR MD DATE OF SERVICE: 08/05/18 Discharge Plan Patient Name: FREEMAN ALBRECHT [facility] [facility] 1950 Planned Disposition: Nursing Facility NII Cert Anticipated Discharge Date: 08/05/18 Discharge Date: Expected LOS: 43 Initial Reviewer: [id number] Initial Review Date: 06/27/2018 Generated: 08/05/18 1:01 pm Comments DCP- Discharge Planning Updated by [id number]: Pepe Interiano on 08/04/18 10:[address] Patient Name: FREEMAN ALBRECHT Encounter No: [id number] : 1950 Primary Insurance: [facility] MEDICARE HMO or PPO Anticipated DC Date: 08-05-2018 Planned Disposition: Nursing Facility NII Cert External Planned Provider: [facility], HALFWAY CARE MEDICAID BED DCP follow-up note: CM REVIEWED CHART, PT CONTINUES ON ROOM AIR DURING DAY AND ON 3 LITERS OXYGEN WITH BIPAP. [facility] HAS ACCEPTED FOR OUTPATIENT DIALYSIS, HAVE TTS 1215 DIALYSIS SCHEDULE. CM RECEIVED CALL FROM KELLIE OF [facility], , THEY HAVE RECEIVED A BERI CHAIR AND ARRANGED DIALYSIS TRANSPORTATION. KELLIE INFORMED CM THAT THE DIALYSIS CENTER CAN START ON 08-07-18. CM FAXED HOSPITAL UPDATE TO [facility], . CM VERIFIED DELAY OF OUTPATIENT DIALSYSIS CHAIR OF THE DIALYSIS UNIT GIVING CHAIR TO TRAVELER UNTIL SATURDAY OF THIS WEEK PER BILL OF [facility]. CM NOTIFIED PT WHO IS IN AGREEMENT WITH DISCHARGE TO THE [facility] SOON POSSIBLE. IMPORTANT MESSAGE FROM MEDICARE PROVIDED AND EXPLAINED. [facility] IN [place] WILL ACCEPT FOR OUTPATIENT ADMIT ON 08-07-18. FOR DISCHARGE, CALL NURSE REPORT TO [facility], , FAX DISCHARGE INFORMATION TO [facility], . PT TO TRANSPORT VIA AMBULANCE. SIENA HILARIO MANAGEMENT DCP- Discharge Planning Updated by [id number]: Pepe Interiano on 07/31/18 2:[address] Patient Name: FREEMAN ALBRECHT Encounter No: [id number] : 1950 Primary Insurance: [facility] MEDICARE HMO or PPO Anticipated DC Date: 07-29-2018 Planned Disposition: Nursing Facility [facility] Cert External Planned Provider: [facility], LONG TERM CARE MEDICAID BED DCP follow-up note: CM REVIEWED CHART, PT NOW ON ROOM AIR DURING DAY AND ON 3 LITERS OXYGEN WITH BIPAP AT NIGHT PER BEDSIDE NURSE. [facility] HAS ACCEPTED FOR OUTPATIENT DIALYSIS, HAVE TTS 1215 DIALYSIS SCHEDULE, DEPENDENT UPON THE [facility] OBTAINING A BERI CHAIR AND TRANSPORTATION. CM FAXED HOSPITAL UPDATE TO [facility], . [facility] ANTICIPATES DELIVERY OF NEW BERI CHAIR NEXT 08-04-18. [facility] WILL CALL WHEN NEW BERIATRIC CHAIR IS RECEIVED AND THEY ARE ABLE TO ACCEPT PT BACK IN FACILITY, THEY NOW ANTICIPATE 08-04-18. ONCE ACCEPTED AND DISCHARGE ORDERS RECEIVED, CALL NURSE REPORT TO [facility], , FAX DISCHAR[facility] INFORMATION TO [facility], . PT TO TRANSPORT VIA AMBULANCE. SIENA HILARIO DCP- Discharge Planning Updated by [id number]: Pepe Interiano on 07/29/18 8:[address] Patient Name: FREEMAN ALBRECHT Encounter No: [id number] : 1950 Primary Insurance: [facility] MEDICARE HMO or PPO Anticipated DC Date: 07-29-2018 Planned Disposition: Nursing Facility [facility] Cert External Planned Provider: [facility], LONG TERM CARE MEDICAID BED DCP follow-up note: CM REVIEWED CHART, PT CONTINUES ON 3 LITERS OXYGEN ON HIGH FLOW CANNULA. [facility] HAS ACCEPTED FOR OUTPATIENT DIALYSIS, HAVE TTS 1215 DIALYSIS SCHEDULE, DEPENDENT UPON THE [facility] OBTAINING A BERI CHAIR AND TRANSPORTATION. CM FAXED HOSPITAL UPDATE TO [facility], . CM RECEIVED CALL FROM KELLIE OF [facility], . KELLIE ADVISED THE NEW JOSSUE CHAIR WILL NOT BE IN UNTIL SATURDAY OF NEXT WEEK. CM EXPLAINED THAT INSURANCE HAS PROVIDED HOSPITAL AUTHORIZATION THRU TODAY AND ANTICIPATED DISCHARGE TO THE [facility]. KELLIE WILL CHECK WITH THE DURAL MECHANIC AND CALL CM WITH UPDATE. [facility] WILL NOT ACCEPT PT UNTIL THE CHAIR IS DELIVERED TO FACLITY. THE FACILITY CAN ACCOMODATE 3LITERS OXYGEN ON HIGH FLOW CANNULA. PT NOTIFIED, IMPORTANT MESSAGE FROM MEDICARE PROVIDED AND EXPLAINED. PT WANTS TO RETURN TO THE [facility] SOON POSSIBLE AND IS NOT HAPPY WITH TIME IT IS TAKING FOR THE [facility] TO MAKE ACCOMODATION FOR HIM TO RETURN "HOME". PT ASKED FOR CM ASSISTANCE IN CALLING NUMBER ON HIS CELL PHONE, CM ASSISTED; PT BEGAN TALKING TO THE [facility] REGARDING GETTING HIS BERI CHAIR, CM LEFT ROOM. [facility] WILL CALL WHEN NEW BERIATRIC CHAIR IS RECEIVED AND THEY ARE ABLE TO ACCEPT PT BACK IN FACILITY, THEY NOW ANTICIPATE 08-04-18. ONCE ACCEPTED AND DISCHARGE ORDERS RECEIVED, CALL NURSE REPORT TO [facility], , FAX DISCHARGE INFORMATION TO [facility], . PT TO TRANSPORT VIA AMBULANCE. PEPE INTERIANO, CASE MANAGEMENT DCP- Discharge Planning Updated by [id number]: Pepe Interiano on 07/23/18 9:[address] Patient Name: FREEMAN ALBRECHT Encounter No: [id number] : 1950 Primary Insurance: [facility] MEDICARE HMO or PPO Anticipated DC Date: 07-23-2018 Planned Disposition: Nursing Facility [facility] External Planned Provider: [facility], HALFWAY CARE MEDICAID BED DCP follow-up note: CM REVIEWED CHART, PT CONTINUES ON 3 LITERS OXYGEN ON HIGH FLOW CANNULA. CM CALLED AND SPOKE TO BILL OF [facility], , WHO CHECKED WITH [facility], THEY HAVE ACCEPTED, HAVE TTS 1215 DIALYSIS SCHEDULE BUT CANNOT ADMIT FOR OUTPATIENT DIALYSIS UNTIL 07-29-18 THEY HAVE A VISITOR HAVING DIALYSIS IN THAT CHAIR TIME UNTIL 07-26-18. CM NOTIFED RENAL NURSE ILSA. CM HAS REQUESTED THAT FACILITY ACCEPT PT ON Saturday07-26-18, AFTER HOSPITAL DIALYSIS. CM WAITING ADMISSION DETERMINATION FROM [facility] WHO INFORMED CM THAT PT'S DIALYSIS SCHEDULE HAS BEEN OBTAINED: [facility], TTS, 1215 HOURS, [facility] TO TRANSPORT, CAN ADMIT TO OUTPATIENT CLINIC ON 07-29-18. PEPE INTERIANO, CASE MANAGEMENT Appended by Pepe Interiano on 07/23/2018 10:54 CDT: CM CALLED AND SPOKE TO MARGARET AT [facility], . THEY WERE USING A BORROWED JOSSUE CHAIR WHICH BROKE AND THEY ORDERED A NEW ONE, WHICH SHOULD BE IN EARLY NEXT WEEK. THEY WILL NOT ACCEPT PT UNTIL THE CHAIR IS DELIVERED TO [facility]. THE FACILITY CAN ACCOMODATE 3LITERS OXYGEN ON HIGH FLOW CANNULA. [facility] WILL CALL WHEN NEW BERIATRIC CHAIR IS RECEIVED AND THEY ARE ABLE TO ACCEPT PT BACK IN FACILITY. ONCE ACCEPTED AND DISCHARGE ORDERS RECEIVED, CALL NURSE REPORT TO [facility], , FAX DISCHARGE INFORMATION TO [facility], . PT TO TRANSPORT VIA AMBULANCE. SIENA HILAROI MANAGEMENT DCP- Discharge Planning Updated by [id number]: Pepe Interiano on 07/22/18 4:[address] Patient Name: FREEMAN ALBRECHT Encounter No: [id number] : 1950 Primary Insurance: [facility] MEDICARE HMO or PPO Anticipated DC Date: 07-15-2018 Planned Disposition: Nursing Facility NII Cert External Planned Provider: [facility], [facility] MEDICAID BED DCP follow-up note: CM REVIEWED CHART, PT CONTINUES ON 3 LITERS OXYGEN ON HIGH FLOW CANNULA. FAXED UPDATED NOTES TO [facility], . CM TO CALL AND FOLLOW UP WITH MARGARET AT [facility] WHO IS CHECKING TO SEE IF THE FACILITY CAN MEET PT'S NEEDS FOR OUTPATIENT DIALYSIS ARRANGEMENTS. Pepe Interiano, CASE MANAGEMENT Appended by Pepe Interiano on 07/22/2018 17:21 CDT: CM CALLED AND SPOKE TO LIZ, CHIEF SCIENTIST FOR [facility], . LIZ REPORTS RECEIVING UPDATES YESTERDAY AND TODAY, MARGARET, DURAL MECHANIC IS OUT TODAY AND THEY HAVE MADE ARRANGEMENTS TO GET PT TO AND FROM DIALYSIS FROM THE [facility]. LIZ REPORTS HAVING DIALYSIS SCHEDULE FOR PT OF TTS AT 1215 AT [facility]. LIZ WILL DISCUSS PT'S CONDITION AND NEED FOR HIGH FLOW OXYGEN AND HAVE MARGARET CALL CM TO CONFIRM THAT THEY CAN MEET PT'S OXYGEN NEEDS FOR READMISSION TO [facility] AT [facility]. PT NOTIFIED AND IN AGREEMENT WITH RETURN TO THE [facility]. IMPORTANT MESSAGE FROM MEDICARE PROVIDED AND EXPLAINED, PT CONTINUES TO REPORT INABILITY TO MOVE ARMS ENOUGH TO SIGN NAME. CM WAITING ADMISSION DETERMINATION FROM [facility] WHO INFORMED CM THAT PT'S DIALYSIS SCHEDULE HAS BEEN OBTAINED: [facility], TTS, 1215 HOURS, [facility] TO TRANSPORT. PEPE INTERIANO, CASE MANAGEMENT DCP- Discharge Planning Updated by [id number]: Pepe Interiano on 07/21/18 8:[address] Patient Name: FREEMAN ALBRECHT Encounter No: [id number] : 1950 Primary Insurance: [facility] MEDICARE HMO or PPO Anticipated DC Date: 07-15-2018 Planned Disposition: Nursing Facility [facility] Cert External Planned Provider: [facility], LONG TERM CARE MEDICAID BED DCP follow-up note: CM REVIEWED CHART, PT NOW ON 3 LITERS OXYGEN ON HIGH FLOW CANNULA. FAXED UPDATED NOTES TO [facility], . CM TO CALL AND FOLLOW UP WITH MARGARET AT [facility] WHO IS CHECKING TO SEE IF THE FACILITY CAN MEET PT'S NEEDS FOR OUTPATIENT DIALYSIS ARRANGEMENTS. Pepe Interiano CASE MANAGEMENT DCP- Discharge Planning Updated by [id number]: Pepe Interiano on 07/17/18 3:[address] Patient Name: FREEMAN ALBRECHT Encounter No: [id number] : 1950 Primary Insurance: [facility] MEDICARE HMO or PPO Anticipated DC Date: 07-15-2018 Planned Disposition: Nursing Facility [facility] Cert External Planned Provider: [facility], LONG TERM CARE MEDICAID BED DCP follow-up note: CM CALLED FOR DURAL MECHANIC MARGARET OF [facility], , SPOKE TO KELLIE MARGARET NOT IN TODAY. FAXED UPDATE HAS BEEN RECEIVED BY FACILITY TODAY. CM INFORMED OF DOCTORS PLAN TO DISCHARGE ONCE OXYGEN LEVEL CAN BE PROVIDED SAFELY BY FACILITY. KELLIE WILL NOTIFY MARGARET TOMORROW, DISCUSS OXYGEN NEEDS WITH DIALYSIS UNIT AND CALL CM WITH DETERMINATION. CM SPOKE TO PT IN ROOM, PT WANTS TO GO BACK TO THE [facility] WHERE HE LIVES. IMPORTANT MESSAGE FROM MEDICARE PROVIDED AND DISCUSSED. CM WAITING RETURN CALL FROM MARGARET OF [facility]. SIENA Hilario DCP- Discharge Planning Updated by [id number]: Pepe Interiano on 07/15/18 5:[address] Patient Name: FREEMAN ALBRECHT Encounter No: [id number] : 1950 Primary Insurance: [facility] MEDICARE HMO or PPO Anticipated DC Date: 07-15-2018 Planned Disposition: Nursing Facility [facility] Cert External Planned Provider: [place] DCP follow-up note: CM REVIEWED CHART, PT NOW ON 10 LITERS OXYGEN ON HIGH FLOW CANNULA. FAXED UPDATED NOTES TO [facility], . CM TO CALL AND FOLLOW [facility] WHO [facility] CHECK[facility] TO SEE IF THE FACILITY CAN MEET PT'S NEEDS FOR OUTPATIENT DIALYSIS ARRANGEMENTS. Pepe Interiano CASE MANAGEMENT Appended by Pepe Interiano on 07/15/2018 18:24 CDT: CM SPOKE TO BILL ANN [facility] WHO REPORTS THAT THE OUTPATIENT DIALYSIS CLINIC PLANS TO ACCEPT PT FOR OUTPATIENT DIALYSIS SERVICES ONCE THE [facility] HAS ARRANGED APPROPRIATE TRANSPORT CHAIR AND TRANSPORTATION TO AND FROM DIALYSIS. BILL ASKED TO BE NOTIFIED ONCE THIS HAS BEEN VERIFIED TO COMPLETE OUTPATIENT DIALYSIS CLINIC ARRANGEMENTS. CM NOTIFED BILL OF PT'S DECLINE AND HIGH OXYGEN NEED AT THIS TIME. CM TO KEEP BOTH BILL ANN [facility]IENT LOGAN AND MARGARET [facility] ADVISED OF PT'S CONDITION AND FOLLOW UP WITH [facility] WHO IS CHECKING TO SEE IF THE FACILITY CAN MEET PT'S NEEDS FOR OUTPATIENT DIALYSIS ARRANGEMENTS. SIENA HILARIO DCP- Discharge Planning Updated by [id number]: Pepe Interiano on 07/02/18 11:[address] Patient Name: FREEMAN ALBRECHT Encounter No: [id number] : 1950 Primary Insurance: [facility] MEDICARE HMO or PPO Anticipated DC Date: Planned Disposition: Nursing Facility [facility] Cert External Planned Provider: [facility], HALFWAY CARE MEDICAID BED DCP follow-up note: CM RECEIVED MESSAGE FROM BILL BENSON OF [facility], PT CAN ATTEND OUTPATIENT DIALYSIS AT [facility] IN [place] IF HE HAS BERIATRIC JOSSUE CHAIR THAT HE CAN SIT IN AT THE UNIT FOR DURATION OF DIALYSIS. CM CALLED AND SPOKE TO DURAL MECHANIC MARGARET OF [facility], , INFORMED OF NEED OF OUTPATIENT DIALYSIS AND BERI JOSSUE CHAIR AND TRANSPORTATION TO AND FROM OUTPATIENT DAILYSIS. MARGARET IS NOT SURE IF THEY WILL BE ABLE TO ACCOMODATE PT'S NEEDS BUT WILL EXPLORE OPTIONS NOW. PT HAS BEEN UP TO HIS HOVERROUND SCOOTER AT THE [facility] PRIOR TO HOSPITALIZATION. PT'S BROTHER IS NOT ABLE TO MAKE DECISIONS FOR PT AND PT HAS NO OTHER LIVING FAMILY PER MARGARET. CM MET WITH PT IN ROOM, PT ORIENTED TO SELF AND PLACE AND SITUATION. PT DOES WANT OUTPATIENT DIALYSIS, DOES NOT WANT TO MOVE FROM HIS [facility] WHERE HE LIVES WITH HIS BROTHER, AND REPORTS THAT HE IS NORMALLY [facility] DAY REPORTING THE [facility] HAS A LIFT TO GET HIM UP. PT REPORTS HE PROVIDED HIS FRIEND ROD SALGADO WITH POWER OF SLASH TRIMMER IF IT IS EVER NEEDED. CM SPOKE TO ROD VANCER[place]GE, PT'S FRIEND AT [phone]. ROD STATES THAT PT GAVE HIM A PACKET OF INFORMATION TO BE OPENED IN EVENT OF PT'S BUT HE HAS NEVER LOOKED INSIDE TO KNOW WHAT IS IN THERE. BOTH PT AND PT'S BROTHER ALWAYS TOLD HIM THAT IF PT'S BROTHER IS NOT ABLE TO MAKE DECISIONS, ROD WOULD BE IT. ROD WILL LOOK IN THE PACKET OF INFORMATION TO SEE IF HE HAS MEDICAL POWER OF SLASH TRIMMER IF IT IS EVER NEEDED. CM FAXED UPDATED NOTES TO [facility], . MARGARET AT [facility] IS CHECKING TO SEE IF THE FACILITY CAN MEET PT'S NEEDS FOR OUTPATIENT DIALYSIS ARRANGEMENTS. Pepe Interiano, CASE MANAGEMENT DCP- Discharge Planning Updated by [id number]: Pepe Interiano on 07/01/18 4:[address] Patient Name: FREEMAN ALBRECHT Encounter No: [id number] : 1950 Primary Insurance: [facility] MEDICARE HMO or PPO Anticipated DC Date: Planned Disposition: Nursing Facility [facility] External Planned Provider: [facility], [facility] MEDICAID BED DCP follow-up note: CM SPOKE TO ROD SALGADO, PT'S FRIEND AT NURSES STATION. ROD BELIEVES PT HAS GIVEN UP ON LIFE. ROD IS CONCERNED OF HOW PT WILL GET TO AND FROM DILALYSIS WHILE AT [facility] AND ASKED CM TO CONTACT THE [facility] TO DISCUSS THIS ROD FEELS THAT PT MAY NOT BE ABLE TO TRANSPORT FOR DIAYSIS OR SIT IN CHAIR FOR DIALYSIS IN A CLINIC. ROD PROVIDED HIS CONTACT PHONE IF NEEDED, . CM FAXED UPDATED NOTES TO [facility], AND WILL CALL FACILITY TOMORROW TO DISCUSS OUTPATIENT DIALYSIS. Pepe Interiano, CASE MANAGEMENT DCP- Discharge Planning Updated by [id number]: Pepe Interiano on 06/27/18 11:[address] Patient Name: FREEMAN ALBRECHT Admission Status: Elective Accout number: [id number] Admission Date: 06-23-2018 : 1950 Admission Diagnosis:ACUTE KIDNEY FAILURE, UNSPECIFIED Attending: Emily Amador Current LOS: 4 Anticipated DC Date: Planned Disposition: Nursing Facility [facility] Primary Insurance: [facility] MEDICARE HMO or PPO PLANNED EXTERNAL PROVIDER: [facility], LONG TERM CARE MEDICAID BED Discharge Planning Comments: * Is the patient Alert and Oriented? No 0 * How many steps to enter\\exit or inside your home? NONE 0 * PCP DR. ESCAMILLA 0 * Pharmacy [facility] * Preadmission Environment [facility] 0 * Facility [facility] 0 * ADLs Total Dependent 0 * Equipment Other 0 * Other Equipment ALL MEDICAL EQUIPMENT PROVIDED BY FACILITY 0 * List name and contact numbers for known caregivers / representatives who currently or will assist patient after discharge: ROD SALGADO, FRIEND, 0 * Verbal permission to speak to the caregivers and representatives has been obtained from the patient. N/A 0 * Community resources currently utilized None 0 * Please name any agencies selected above. NONE 0 * Additional services required to return to the preadmission environment? No 0 * Can the patient safely return to the preadmission environment? Yes 0 * Has this patient been hospitalized within the prior 30 days at any hospital? No 0 CM ATTEMPTED TO ASSESS PT IN ROOM FOR DISCHARGE PLANNING AND NEEDS. PT REPORTS LIVING AT HOME ALONE AND INDEPENDENTLY. PT FALLING ASLEEP DURING CONSULT AND TOOK LONG PERIODS OF TIME AND CM CONSTANTLY AWAKING PT AND REPEATING QUESTIONS TO GET ANY RESPONSE. CM REVIEWED CHART WHICH INDICATES PT TRANSFERRED FROM [facility] AND ADMITTED TO THEM FROM "[facility]." CM CALLED PT'S LISTED EMERGENCY CONTACT, BROTHER HENRY, . THE NUMBER WAS ANSWERED AT [facility], CM SPOKE TO PT'S [facility] NURSE, CORIE, WHO INFORMED CM THAT BOTH PT AND PT'S BROTHER, MERCEDES, ARE IN [facility] ASSISTANT CARE AT THE [facility]. PT DOES NOT CURRENTLY HAVE OUTPATIENT DIALYSIS, PT IS VERY NON COMPLIANT WITH FLUID RESTRICTIONS. PT IS TOTAL CARE AT THE [facility] AND THEY PLAN TO ACCEPT BACK. CM FAXED UPDATE TO [facility], . FOR DISCHARGE, FAX DISCHARGE INFORMATION TO [facility], ; NURSE REPORT TO BE CALLED TO [facility], . PT TO TRANSPORT VIA AMBULANCE. Clinical Program Manager: Pepe Interiano DCPIA - Discharge Planning Initial Assessment Updated by [id number]: Pepe Interiano on 07/02/18 11:42 am * Is the patient Alert and Oriented? No * How many steps to enter\\exit or inside your home? NONE * PCP DR. ESCAMILLA * Pharmacy [facility] * Preadmission Environment [facility] * Facility Name [facility] * ADLs Partial Dependent * Partial ADLs (Assistance needed) Bathing Dressing Medication Management Toileting Transfers * Equipment Other * Other Equipment ALL MEDICAL EQUIPMENT PROVIDED BY FACILITY * List name and contact numbers for known caregivers / representatives who currently or will assist patient after discharge: ROD SALGADO, FRIEND, * Verbal permission to speak to the caregivers and representatives has been obtained from the patient. N/A * Community resources currently utilized None * Please name any agencies selected above. NONE * Additional services required to return to the preadmission environment? No * Can the patient safely return to the preadmission environment? Yes * Has this patient been hospitalized within the prior 30 days at any hospital? No Coverage Notice Reviewer: [id number] - Pepe Interiano Notice Issued Date-Time: 08/04/2018 11:40 Notice Type: IM Discharge Notice Notice Delivered To: Patient Relationship to Patient: Transporter Driver Name: Delivery Method: HAND - Hand Delivered Chela Days: Prior Verbal Notification: Recipient Understood Notice: Yes Recipient Signature: Yes Med Rec Note Co-signed by Attending: Coverage Notice Comment: Reviewer: GLENNY Interiano Notice Issued Date-Time: 07/29/2018 9:25 Notice Type: IM Discharge Notice Notice Delivered To: Patient Relationship to Patient: Transporter Driver Name: Delivery Method: HAND - Hand Delivered Chela Days: Prior Verbal Notification: Recipient Understood Notice: Yes Recipient Signature: Yes Med Rec Note Co-signed by Attending: Coverage Notice Comment: Reviewer: GLENNY Interiano Notice Issued Date-Time: 07/22/2018 16:30 Notice Type: IM Discharge Notice Notice Delivered To: Patient Relationship to Patient: Transporter Driver Name: Delivery Method: HAND - Hand Delivered Chela Days: Prior Verbal Notification: Recipient Understood Notice: Yes Recipient Signature: Med Rec Note Co-signed by Attending: Coverage Notice Comment: Reviewer: GLENNY Interiano Notice Issued Date-Time: 07/17/2018 16:00 Notice Type: IM Discharge Notice Notice Delivered To: Patient Relationship to Patient: Transporter Driver Name: Delivery Method: HAND - Hand Delivered Chela Days: Prior Verbal Notification: Recipient Understood Notice: Yes Recipient Signature: Med Rec Note Co-signed by Attending: Coverage Notice Comment: Last DP export: 08/05/18 10:54 Patient Name: FREEMAN ALBRECHT Page 12757 at 1202 All edits/amendments must be made on the electronic document DICTATION DATE: 08/05/18 1201 ADVERTISING ACCOUNT EXECUTIVE: DM 08/05/18 1201 RPT#: [id number] DC DATE: STATUS: ADM IN [facility] [address] [place] [address] END OF REPORT
--- NOTE | ~2018-06-23 | MORECARE ---
CASE MANAGEMENT DISCHARGE SUMMARY PATIENT: FREEMAN ALBRECHT UNIT: [id number] ADM DATE: 06/23/18 AGE: 68 : [birth year] SEX: M ROOM/BED: D.2137 AUTHOR: KASSIDY RAMIREZ PHYSICIAN: REFERRING PHYSICIAN: EMILY AMADOR MD DATE OF SERVICE: 08/05/18 Discharge Plan Patient Name: FREEMAN ALBRECHT Facility: [facility]:[place] : 1950 Planned Disposition: Nursing Facility NII Cert Anticipated Discharge Date: 08/05/18 Discharge Date: Expected LOS: 43 Initial Reviewer: [email or web address] Initial Review Date: 06/27/2018 Generated: 08/05/18 1:08 pm Comments DCP- Discharge Planning Updated by [id number]: Pepe Interiano on 08/05/18 11:[address] Patient Name: FREEMAN ALBRECHT Encounter No: [id number] : 1950 Primary Insurance: MIS MEDICARE HMO or PPO Anticipated DC Date: 08-05-2018 Planned Disposition: Nursing Facility [facility] Cert External Planned Provider: [facility], LONG TERM CARE MEDICAID BED DCP follow-up note: CM SPOKE TO DR. AMADOR IN HOSPITAL, RECEIVED DISCHARGE, SPOKE TO KELLIE AT [facility], WHO REPORTS THEY ARE READY TO ACCEPT PT TODAY. CM FAXED DISCHARGE INFORMATION TO [facility], . PATIENT NOTIFIED AND IN AGREEMENT WITH DISCHARGE HOME TO HALFWAY TODAY. CALL NURSE REPORT TO [facility], , PT TO TRANSPORT VIA AMBULANCE. PEPE INTERIANO, CASE CYNDEE DCP- Discharge Planning Updated by [id number]: Pepe Interiano on 08/04/18 10:[address] Patient Name: FREEMAN ALBRECHT Encounter No: [id number] : 1950 Primary Insurance: MISC MEDICARE HMO or PPO Anticipated DC Date: 08-05-2018 Planned Disposition: Nursing Facility [facility] Cert External Planned Provider: [facility], LONG TERM CARE MEDICAID BED DCP follow-up note: CM REVIEWED CHART, PT CONTINUES ON ROOM AIR DURING DAY AND ON 3 LITERS OXYGEN WITH BIPAP. [facility] HAS ACCEPTED FOR OUTPATIENT DIALYSIS, HAVE TTS 1215 DIALYSIS SCHEDULE. CM RECEIVED CALL FROM KELLIE OF [facility], , THEY HAVE RECEIVED A BERI CHAIR AND ARRANGED DIALYSIS TRANSPORTATION. KELLIE INFORMED CM THAT THE DIALYSIS CENTER CAN START ON 08-07-18. CM FAXED HOSPITAL UPDATE TO [facility], . CM VERIFIED DELAY OF OUTPATIENT DIALSYSIS CHAIR OF THE DIALYSIS UNIT GIVING CHAIR TO TRAVELER UNTIL SATURDAY OF THIS WEEK PER BILL OF [facility]. CM NOTIFIED PT WHO IS IN AGREEMENT WITH DISCHARGE TO THE HALFWAY SOON POSSIBLE. IMPORTANT MESSAGE FROM MEDICARE PROVIDED AND EXPLAINED. [facility] IN [place] WILL ACCEPT FOR OUTPATIENT ADMIT ON 08-07-18. FOR DISCHARGE, CALL NURSE REPORT TO [facility], , FAX DISCHARGE INFORMATION TO [facility], . PT TO TRANSPORT VIA AMBULANCE. PEPE INTERIANO, CASE MANAGEMENT DCP- Discharge Planning Updated by [id number]: Pepe Interiano on 07/31/18 2:[address] Patient Name: FREEMAN ALBRECHT Encounter No: [id number] : 1950 Primary Insurance: [facility] MEDICARE HMO or PPO Anticipated DC Date: 07-29-2018 Planned Disposition: Nursing Facility NII Cert External Planned Provider: [facility], [facility] [employer] MEDICAID BED DCP follow-up note: CM REVIEWED CHART, PT NOW ON ROOM AIR DURING DAY AND ON 3 LITERS OXYGEN WITH BIPAP AT NIGHT PER BEDSIDE NURSE. [facility] HAS ACCEPTED FOR OUTPATIENT DIALYSIS, HAVE TTS 1215 DIALYSIS SCHEDULE, DEPENDENT UPON THE HALFWAY OBTAINING A BERI CHAIR AND TRANSPORTATION. CM FAXED HOSPITAL UPDATE TO [facility], . HALFWAY ANTICIPATES DELIVERY OF NEW BERI CHAIR NEXT 08-04-18. [facility] WILL CALL WHEN NEW BERIATRIC CHAIR IS RECEIVED AND THEY ARE ABLE TO ACCEPT PT BACK IN FACILITY, THEY NOW ANTICIPATE 08-04-18. ONCE ACCEPTED AND DISCHARGE ORDERS RECEIVED, CALL NURSE REPORT TO [facility], , FAX DISCHARGE INFORMATION TO [facility], . PT TO TRANSPORT VIA AMBULANCE. SIENA HILARIO MANAGEMENT DCP- Discharge Planning Updated by [id number]: Pepe Interiano on 07/29/18 8:[address] Patient Name: FREEMAN ALBRECHT Encounter No: [id number] : 1950 Primary Insurance: [facility] MEDICARE HMO or PPO Anticipated DC Date: 07-29-2018 Planned Disposition: Nursing Facility NII Cert External Planned Provider: [facility], [facility] CARE MEDICAID BED DCP follow-up note: CM REVIEWED CHART, PT CONTINUES ON 3 LITERS OXYGEN ON HIGH FLOW CANNULA. [facility] HAS ACCEPTED FOR OUTPATIENT DIALYSIS, HAVE TTS 1215 DIALYSIS SCHEDULE, DEPENDENT UPON THE HALFWAY OBTAINING A BERI CHAIR AND TRANSPORTATION. CM FAXED HOSPITAL UPDATE TO [facility], . CM RECEIVED CALL FROM KELLIE OF [facility], . KELLIE ADVISED THE NEW JOSSUE CHAIR WILL NOT BE IN UNTIL SATURDAY OF NEXT WEEK. RACHEL EXPLAINED THAT INSURANCE HAS PROVIDED HOSPITAL AUTHORIZATION THRU TODAY AND ANTICIPATED DISCHARGE TO THE HALFWAY. KELLIE WILL CHECK WITH THE [facility] AND CALL CM WITH UPDATE. [facility] WILL NOT ACCEPT PT UNTIL THE CHAIR IS DELIVERED TO [facility]. THE FACILITY CAN ACCOMODATE 3LITERS OXYGEN ON HIGH FLOW CANNULA. PT NOTIFIED, IMPORTANT MESSAGE FROM MEDICARE PROVIDED AND EXPLAINED. PT WANTS TO RETURN TO THE HALFWAY SOON POSSIBLE AND IS NOT HAPPY WITH TIME IT IS TAKING FOR THE HALFWAY TO MAKE ACCOMODATION FOR HIM TO RETURN "HOME". PT ASKED FOR CM ASSISTANCE IN CALLING NUMBER ON HIS CELL PHONE, CM ASSISTED; PT BEGAN TALKING TO THE HALFWAY REGARDING GETTING HIS BERI CHAIR, CM LEFT ROOM. [facility] WILL CALL WHEN NEW BERIATRIC CHAIR IS RECEIVED AND THEY ARE ABLE TO ACCEPT PT BACK IN FACILITY, THEY NOW ANTICIPATE 08-04-18. ONCE ACCEPTED AND DISCHARGE ORDERS RECEIVED, CALL NURSE REPORT TO [facility], , [facility]X [facility]CHARGE INFORMATION TO [facility], . PT TO TRANSPORT VIA AMBULANCE. PEPE LAISHA, CASE MANAGEMENT DCP- Discharge Planning Updated by [id number]: Pepe Interiano on 07/23/18 9:[address] Patient Name: FREEMAN ALBRECHT Encounter No: [id number] : 1950 Primary Insurance: [facility] MEDICARE HMO or PPO Anticipated DC Date: 07-23-2018 Planned Disposition: Nursing Facility NII Cert External Planned Provider: [facility], [employer] MEDICAID BED DCP follow-up note: CM REVIEWED CHART, PT CONTINUES ON 3 LITERS OXYGEN ON HIGH FLOW CANNULA. CM CALLED AND SPOKE TO BLIL OF [facility], , WHO CHECKED WITH [facility], THEY HAVE ACCEPTED, HAVE TTS 1215 DIALYSIS SCHEDULE BUT CANNOT ADMIT FOR OUTPATIENT DIALYSIS UNTIL 07-29-18 THEY HAVE A VISITOR HAVING DIALYSIS IN THAT CHAIR TIME UNTIL 07-26-18. CM NOTIFED RENAL NURSE ILSA. CM HAS REQUESTED THAT FACILITY ACCEPT PT ON Saturday07-26-18, AFTER HOSPITAL DIALYSIS. CM WAITING ADMISSION DETERMINATION FROM [facility] WHO INFORMED CM THAT PT'S DIALYSIS SCHEDULE HAS BEEN OBTAINED: [facility], TTS, 1215 HOURS, HALFWAY TO TRANSPORT, CAN ADMIT TO OUTPATIENT CLINIC ON 07-29-18. PEPE INTERIANO, CASE MANAGEMENT Appended by Pepe Interiano on 07/23/2018 10:54 CDT: CM CALLED AND SPOKE TO MARGARET AT [facility], . THEY WERE USING A BORROWED JOSSUE CHAIR WHICH BROKE AND THEY ORDERED A NEW ONE, WHICH SHOULD BE IN EARLY NEXT WEEK. THEY WILL NOT ACCEPT PT UNTIL THE CHAIR IS DELIVERED TO [facility]. THE FACILITY CAN ACCOMODATE 3LITERS OXYGEN ON HIGH FLOW CANNULA. [facility] WILL CALL WHEN NEW BERIATRIC CHAIR IS RECEIVED AND THEY ARE ABLE TO ACCEPT PT BACK IN FACILITY. ONCE ACCEPTED AND DISCHARGE ORDERS RECEIVED, CALL NURSE REPORT TO [facility], , FAX DISCHARGE INFORMATION TO [facility], . PT TO TRANSPORT VIA AMBULANCE. PEPE INTERIANO, CASE MANAGEMENT DCP- Discharge Planning Updated by [id number]: Pepe Interiano on 07/22/18 4:[address] Patient Name: FREEMAN ALBRECHT Encounter No: [id number] : 1950 Primary Insurance: [facility] MEDICARE HMO or PPO Anticipated DC Date: 07-15-2018 Planned Disposition: Nursing Facility [facility] Cert External Planned Provider: [facility], LONG TERM CARE MEDICAID BED DCP follow-up note: CM REVIEWED CHART, PT CONTINUES ON 3 LITERS OXYGEN ON HIGH FLOW CANNULA. FAXED UPDATED NOTES TO [facility], . CM TO CALL AND FOLLOW UP WITH MARGARET AT [facility] WHO IS CHECKING TO SEE IF THE FACILITY CAN MEET PT'S NEEDS FOR OUTPATIENT DIALYSIS ARRANGEMENTS. Pepe Interiano, CASE MANAGEMENT Appended by Pepe Interiano on 07/22/2018 17:21 CDT: CM CALLED AND SPOKE TO LIZ, REIMBURSEMENT CONSULTANT FOR [facility], . LIZ REPORTS RECEIVING UPDATES YESTERDAY AND TODAY, MARGARET, [facility] IS OUT TODAY AND THEY HAVE MADE ARRANGEMENTS TO GET PT TO AND FROM DIALYSIS FROM THE HALFWAY. LIZ REPORTS HAVING DIALYSIS SCHEDULE FOR PT OF TTS AT 1215 AT [facility]. LIZ WILL DISCUSS PT'S CONDITION AND NEED FOR HIGH FLOW OXYGEN AND HAVE MARGARET CALL CM TO CONFIRM THAT THEY CAN MEET PT'S OXYGEN NEEDS FOR READMISSION TO [facility] AT [facility]. PT NOTIFIED AND IN AGREEMENT WITH RETURN TO THE HALFWAY. IMPORTANT MESSAGE FROM MEDICARE PROVIDED AND EXPLAINED, PT CONTINUES TO REPORT INABILITY TO MOVE ARMS ENOUGH TO SIGN NAME. CM WAITING ADMISSION DETERMINATION FROM [facility] WHO INFORMED CM THAT PT'S DIALYSIS SCHEDULE HAS BEEN OBTAINED: [facility], TTS, 1215 HOURS, HALFWAY TO TRANSPORT. PEPE INTERIANO, CASE MANAGEMENT DCP- Discharge Planning Updated by [id number]: Pepe Interiano on 07/21/18 8:[address] Patient Name: FREEMAN ALBRECHT Encounter No: [id number] : 1950 Primary Insurance: [facility] MEDICARE HMO or PPO Anticipated DC Date: 07-15-2018 Planned Disposition: Nursing Facility [facility] Cert External Planned Provider: [facility], LONG TERM CARE MEDICAID BED DCP follow-up note: CM REVIEWED CHART, PT NOW ON 3 LITERS OXYGEN ON HIGH FLOW CANNULA. FAXED UPDATED NOTES TO [facility], . CM TO CALL AND FOLLOW UP WITH MARGARET AT [place] [facility] WHO IS CHECKING TO SEE IF THE FACILITY CAN MEET PT'S NEEDS FOR OUTPATIENT DIALYSIS ARRANGEMENTS. SIENA Hilario DCP- Discharge Planning Updated by [id number]: Pepe Interiano on 07/17/18 3:[address] Patient Name: FREEMAN ALBRECHT Encounter No: [id number] : 1950 Primary Insurance: [facility] MEDICARE HMO or PPO Anticipated DC Date: 07-15-2018 Planned Disposition: Nursing Facility [facility] Cert External Planned Provider: [facility], [facility] CARE MEDICAID BED DCP follow-up note: CM CALLED FOR [facility] MARGARET OF [facility], , SPOKE TO KELLIE MARGARET NOT IN TODAY. FAXED UPDATE HAS BEEN RECEIVED BY FACILITY TODAY. CM INFORMED OF DOCTORS PLAN TO DISCHARGE ONCE OXYGEN LEVEL CAN BE PROVIDED SAFELY BY FACILITY. KELLIE WILL NOTIFY MARGARET TOMORROW, DISCUSS OXYGEN NEEDS WITH DIALYSIS UNIT AND CALL CM WITH DETERMINATION. CM SPOKE TO PT IN ROOM, PT WANTS TO GO BACK TO THE HALFWAY WHERE HE LIVES. IMPORTANT MESSAGE FROM MEDICARE PROVIDED AND DISCUSSED. CM WAITING RETURN CALL FROM MARGARET OF [facility]. SIENA Hilario DCP- Discharge Planning Updated by [id number]: Pepe Interiano on 07/15/18 5:[address] Patient Name: FREEMAN ALBRECHT Encounter No: [id number] : 1950 Primary Insurance: [facility] MEDICARE HMO or PPO Anticipated DC Date: 07-15-2018 Planned Disposition: Nursing Facility [facility] External Planned Provider: [place] DCP follow-up note: CM REVIEWED CHART, PT NOW ON 10 LITERS OXYGEN ON HIGH FLOW CANNULA. FAXED UPDATED NOTES TO [facility], . CM TO CALL AND FOLLOW UP WITH MARGARET AT [facility] WHO IS CHECKING TO SEE IF THE FACILITY CAN MEET PT'S NEEDS FOR OUTPATIENT DIALYSIS ARRANGEMENTS. Pepe Interiano CASE MANAGEMENT Appended by Pepe Interiano on 07/15/2018 18:24 CDT: CM SPOKE TO BILL OF [facility] WHO REPORTS THAT THE OUTPATIENT DIALYSIS CLINIC PLANS TO ACCEPT PT FOR OUTPATIENT DIALYSIS SERVICES ONCE THE HALFWAY HAS ARRANGED APPROPRIATE TRANSPORT CHAIR AND TRANSPORTATION TO AND FROM DIALYSIS. BILL ASKED TO BE NOTIFIED ONCE THIS HAS BEEN VERIFIED TO COMPLETE OUTPATIENT DIALYSIS CLINIC ARRANGEMENTS. CM NOTIFED BILL OF PT'S DECLINE AND HIGH OXYGEN NEED AT THIS TIME. CM TO KEEP BOTH BILL OF [facility] AND [facility] ADVISED OF PT'S CONDITION AND FOLLOW UP WITH MARGARET AT [facility] WHO IS CHECKING TO SEE IF THE FACILITY CAN MEET PT'S NEEDS FOR OUTPATIENT DIALYSIS ARRANGEMENTS. PEPE INTERIANO, CASE MANAGEMENT DCP- Discharge Planning Updated by [id number]: Pepe Interiano on 07/02/18 11:[address] Patient Name: FREEMAN ALBRECHT Encounter No: [id number] : 1950 Primary Insurance: [facility] MEDICARE HMO or PPO Anticipated DC Date: Planned Disposition: Nursing Facility NII Cert External Planned Provider: [facility], [facility] MEDICAID BED DCP follow-up note: CM RECEIVED MESSAGE FROM BILL BENSON OF [facility], PT CAN ATTEND OUTPATIENT DIALYSIS AT [facility] IN [place] IF HE HAS BERIATRIC JOSSUE CHAIR THAT HE CAN SIT IN AT THE UNIT FOR DURATION OF DIALYSIS. CM CALLED AND SPOKE TO [facility] MARGARET OF [facility], , INFORMED OF NEED OF OUTPATIENT DIALYSIS AND BERI JOSSUE CHAIR AND TRANSPORTATION TO AND FROM OUTPATIENT DAILYSIS. MARGARET IS NOT SURE IF THEY WILL BE ABLE TO ACCOMODATE PT'S NEEDS BUT WILL EXPLORE OPTIONS NOW. PT HAS BEEN UP TO HIS HOVERROUND SCOOTER AT THE HALFWAY PRIOR TO HOSPITALIZATION. PT'S BROTHER IS NOT ABLE TO MAKE DECISIONS FOR PT AND PT HAS NO OTHER LIVING FAMILY PER MARGARET. CM MET WITH PT IN ROOM, PT ORIENTED TO SELF AND PLACE AND SITUATION. PT DOES WANT OUTPATIENT DIALYSIS, DOES NOT WANT TO MOVE FROM HIS HALFWAY WHERE HE LIVES WITH HIS BROTHER, AND REPORTS THAT HE IS NORMALLY UP TO HIS HOVERROUND SCOOTER EVERY DAY REPORTING THE HALFWAY HAS A LIFT TO GET HIM UP. PT REPORTS HE PROVIDED HIS FRIEND ROD SALGADO WITH POWER OF BOTTOM FINISHER IF IT IS EVER NEEDED. CM SPOKE TO ROD SALGADO, PT'S FRIEND AT [phone]. ROD STATES THAT PT GAVE HIM A PACKET OF INFORMATION TO BE OPENED IN EVENT OF PT'S BUT HE HAS NEVER LOOKED INSIDE TO KNOW WHAT IS IN THERE. BOTH PT AND PT'S BROTHER ALWAYS TOLD HIM THAT IF PT'S BROTHER IS NOT ABLE TO MAKE DECISIONS, ROD WOULD BE IT. ROD WILL LOOK IN THE PACKET OF INFORMATION TO SEE IF HE HAS MEDICAL POWER OF BOTTOM FINISHER IF IT IS EVER NEEDED. CM FAXED UPDATED NOTES TO [facility], . MARGARET AT [facility] IS CHECKING TO SEE IF THE FACILITY CAN MEET PT'S NEEDS FOR OUTPATIENT DIALYSIS ARRANGEMENTS. SIENA Hilario MANAGEMENT DCP- Discharge Planning Updated by [id number]: Pepe Interiano on 07/01/18 4:[address] Patient Name: FREEMAN ALBRECHT Encounter No: [id number] : 1950 Primary Insurance: [facility] MEDICARE HMO or PPO Anticipated DC Date: Planned Disposition: Nursing Facility [facility] External Planned Provider: [facility], [facility] MEDICAID BED DCP follow-up note: CM SPOKE TO ROD DAMIAN, PT'S FRIEND AT NURSES STATION. ROD BELIEVES PT HAS GIVEN UP ON LIFE. ROD IS CONCERNED OF HOW PT WILL GET TO AND FROM DILALYSIS WHILE AT HALFWAY AND ASKED CM TO CONTACT THE HALFWAY TO DISCUSS THIS ROD FEELS THAT PT MAY NOT BE ABLE TO TRANSPORT FOR DIAYSIS OR SIT IN CHAIR FOR DIALYSIS IN A CLINIC. ROD PROVIDED HIS CONTACT PHONE IF NEEDED, . CM FAXED UPDATED NOTES TO [facility], AND WILL CALL FACILITY TOMORROW TO DISCUSS OUTPATIENT DIALYSIS. SIENA Hilario DCP- Discharge Planning Updated by [id number]: Pepe Interiano on 06/27/18 11:[address] Patient Name: FREEMAN ALBRECHT Admission Status: Elective Accout number: [id number] Admission Date: 06-23-2018 : 1950 Admission Diagnosis:ACUTE KIDNEY FAILURE, UNSPECIFIED Attending: Emily Amador Current LOS: 4 Anticipated DC Date: Planned Disposition: Nursing Facility [facility] Primary Insurance: [facility] MEDICARE HMO or PPO PLANNED EXTERNAL PROVIDER: [facility], [facility] C[facility] MEDICAID BED Discharge Planning Comments: * Is the patient Alert and Oriented? No 0 * How many steps to enter\\exit or inside your home? NONE 0 * PCP DR. ESCAMILLA 0 * Pharmacy [facility] 0 * Preadmission Environment Half-Way Correction 0 * [facility] * ADLs Total Dependent 0 * Equipment Other 0 * Other Equipment ALL MEDICAL EQUIPMENT PROVIDED BY FACILITY 0 * List name and contact numbers for known caregivers / representatives who currently or will assist patient after discharge: ROD SALGADO, FRIEND, 0 * Verbal permission to speak to the caregivers and representatives has been obtained from the patient. N/A 0 * Community resources currently utilized None 0 * Please name any agencies selected above. NONE 0 * Additional services required to return to the preadmission environment? No 0 * Can the patient safely return to the preadmission environment? Yes 0 * Has this patient been hospitalized within the prior 30 days at any hospital? No 0 CM ATTEMPTED TO ASSESS PT IN ROOM FOR DISCHARGE PLANNING AND NEEDS. PT REPORTS LIVING AT HOME ALONE AND INDEPENDENTLY. PT FALLING ASLEEP DURING CONSULT AND TOOK LONG PERIODS OF TIME AND CM CONSTANTLY AWAKING PT AND REPEATING QUESTIONS TO GET ANY RESPONSE. CM REVIEWED CHART WHICH INDICATES PT TRANSFERRED FROM [facility] AND ADMITTED TO THEM FROM "[place]FWAY." CM CALLED PT'S LISTED EMERGENCY CONTACT, BROTHER HENRY, . THE NUMBER WAS ANSWERED AT [facility], CM SPOKE TO PT'S HALFWAY NURSE, CORIE, WHO INFORMED CM THAT BOTH PT AND PT'S BROTHER, MERCEDES, ARE IN [facility] AT THE HALFWAY. PT DOES NOT CURRENTLY HAVE OUTPATIENT DIALYSIS, PT IS VERY NON COMPLIANT WITH FLUID RESTRICTIONS. PT IS [facility] AT THE HALFWAY AND THEY PLAN TO ACCEPT BACK. CM FAXED UPDATE TO [facility], . FOR DISCHARGE, FAX DISCHARGE INFORMATION TO [facility], ; NURSE REPORT TO BE CALLED TO [facility], . PT TO TRANSPORT VIA AMBULANCE. [id number] Operator: Pepe Interiano DCPIA - Discharge Planning Initial Assessment Updated by [id number]: Pepe Interiano on 07/02/18 11:42 am * Is the patient Alert and Oriented? No * How many steps to enter\\exit or inside your home? NONE * PCP DR. ESCAMILLA * Pharmacy [facility] * Preadmission Environment Half-Way Correction * Facility Name [facility] * ADLs Partial Dependent * Partial ADLs (Assistance needed) Bathing Dressing Medication Management Toileting Transfers * Equipment Other * Other Equipment ALL MEDICAL EQUIPMENT PROVIDED BY FACILITY * List name and contact numbers for known caregivers / representatives who currently or will assist patient after discharge: ROD SALGADO, DEVORA, * Verbal permission to speak to the caregivers and representatives has been obtained from the patient. N/A * Community resources currently utilized None * Please name any agencies selected above. NONE * Additional services required to return to the preadmission environment? No * Can the patient safely return to the preadmission environment? Yes * Has this patient been hospitalized within the prior 30 days at any hospital? No Coverage Notice Reviewer: GLENNY Interiano Notice Issued Date-Time: 08/04/2018 11:40 Notice Type: IM Discharge Notice Notice Delivered To: Patient Relationship to Patient: Manager Linux Name: Delivery Method: HAND - Hand Delivered Chela Days: Prior Verbal Notification: Recipient Understood Notice: Yes Recipient Signature: Yes Med Rec Note Co-signed by Attending: Coverage Notice Comment: Reviewer: GLENNY Interiano Notice Issued Date-Time: 07/29/2018 9:25 Notice Type: IM Discharge Notice Notice Delivered To: Patient Relationship to Patient: Manager Linux Name: Delivery Method: HAND - Hand Delivered Chela Days: Prior Verbal Notification: Recipient Understood Notice: Yes Recipient Signature: Yes Med Rec Note Co-signed by Attending: Coverage Notice Comment: Reviewer: GLENNY Interiano Notice Issued Date-Time: 07/22/2018 16:30 Notice Type: IM Discharge Notice Notice Delivered To: Patient Relationship to Patient: Manager Linux Name: Delivery Method: HAND - Hand Delivered Chela Days: Prior Verbal Notification: Recipient Understood Notice: Yes Recipient Signature: Med Rec Note Co-signed by Attending: Coverage Notice Comment: Reviewer: GLENNY Interiano Notice Issued Date-Time: 07/17/2018 16:00 Notice Type: IM Discharge Notice Notice Delivered To: Patient Relationship to Patient: Manager Linux Name: Delivery Method: HAND - Hand Delivered Chela Days: Prior Verbal Notification: Recipient Understood Notice: Yes Recipient Signature: Med Rec Note Co-signed by Attending: Coverage Notice Comment: Last DP export: 08/05/18 11:01 Patient Name: FREEMAN ALBRECHT Page [id number] at 1208 All edits/amendments must be made on the electronic document DICTATION DATE: 08/05/181206 POWER SYSTEM DISPATCHER: CABRERA 08/05/181206 RPT#: [id number] DC DATE: STATUS: ADM IN [facility] [address] [place] [address] END OF REPORT
--- NOTE | ~2018-06-23 | MORECARE ---
CASE MANAGEMENT DISCHARGE SUMMARY PATIENT: FREEMAN ALBRECHT UNIT: [id number] ADM DATE: 06/23/18 AGE: 68 : 52 SEX: M ROOM/BED: D.2357 AUTHOR: ASHLEY,DOC PHYSICIAN: REFERRING PHYSICIAN: EMILY AMADOR MD DATE OF SERVICE: 08/04/18 Discharge Plan Patient Name: [facility]REEM[facility] ALBRECH[facility] 1950 Planned Disposition: Nursing Facility NII Cert Anticipated Discharge Date: 08/05/18 Discharge Date: Expected LOS: 43 Initial Reviewer: [id number] Initial Review Date: 06/27/2018 Generated: 08/04/18 1:02 pm Comments DCP- Discharge Planning Updated by [id number]: Pepe Interiano on 08/04/18 10:[address] Patient Name: FREEMAN ALBRECHT Encounter No: [id number] : 1950 Primary Insurance: [facility] MEDICARE HMO or PPO Anticipated DC Date: 08-05-2018 Planned Disposition: Nursing Facility NII Cert External Planned Provider: [facility], [facility] MEDICAID BED DCP follow-up note: CM REVIEWED CHART, PT CONTINUES ON ROOM AIR DURING DAY AND ON 3 LITERS OXYGEN WITH BIPAP. [facility] HAS ACCEPTED FOR OUTPATIENT DIALYSIS, HAVE TTS 1215 DIALYSIS SCHEDULE. CM RECEIVED CALL FROM KELLIE OF [facility], , THEY HAVE RECEIVED A BERI CHAIR AND ARRANGED DIALYSIS TRANSPORTATION. KELLIE INFORMED CM THAT THE DIALYSIS CENTER CAN START ON 08-07-18. CM FAXED HOSPITAL UPDATE TO [facility], . CM VERIFIED DELAY OF OUTPATIENT DIALSYSIS CHAIR OF THE DIALYSIS UNIT GIVING CHAIR TO TRAVELER UNTIL SATURDAY OF THIS WEEK PER BILL OF [facility]. CM NOTIFIED PT WHO IS IN AGREEMENT WITH DISCHARGE TO THE [facility] SOON POSSIBLE. IMPORTANT MESSAGE FROM MEDICARE PROVIDED AND EXPLAINED. [facility] IN [place] WILL ACCEPT FOR OUTPATIENT ADMIT ON 08-07-18. FOR DISCHARGE, CALL NURSE REPORT TO [facility], , FAX DISCHARGE INFORMATION TO [facility], . PT TO TRANSPORT VIA AMBULANCE. SIENA HILARIO MANAGEMENT DCP- Discharge Planning Updated by [id number]: Pepe Interiano on 07/31/18 2:[address] Patient Name: FREEMAN ABLRECHT Encounter No: [id number] : 1950 Primary Insurance: [facility] MEDICARE HMO or PPO Anticipated DC Date: 07-29-2018 Planned Disposition: Nursing Facility [facility] Cert External Planned Provider: [facility], LONG TERM CARE MEDICAID BED DCP follow-up note: CM REVIEWED CHART, PT NOW ON ROOM AIR DURING DAY AND ON 3 LITERS OXYGEN WITH BIPAP AT NIGHT PER BEDSIDE NURSE. [facility] HAS ACCEPTED FOR OUTPATIENT DIALYSIS, HAVE TTS 1215 DIALYSIS SCHEDULE, DEPENDENT UPON THE [facility] OBTAINING A BERI CHAIR AND TRANSPORTATION. CM FAXED HOSPITAL UPDATE TO [facility], . [facility] ANTICIPATES DELIVERY OF NEW BERI CHAIR NEXT 08-04-18. [facility] WILL CALL WHEN NEW BERIATRIC CHAIR IS RECEIVED AND THEY ARE ABLE TO ACCEPT PT BACK IN FACILITY, THEY NOW ANTICIPATE 08-04-18. ONCE ACCEPTED AND DISCHARGE ORDERS RECEIVED, CALL NURSE REPORT TO [facility], , FAX DISCHARGE INFORMATION TO [facility], . PT TO TRANSPORT VIA AMBULANCE. SIENA HILARIO DCP- Discharge Planning Updated by [id number]: Pepe Interiano on 07/29/18 8:[address] Patient Name: FREEMAN ALBRECHT Encounter No: [id number] : 1950 Primary Insurance: [facility] MEDICARE HMO or PPO Anticipated DC Date: 07-29-2018 Planned Disposition: Nursing Facility [facility] Cert External Planned Provider: [facility], LONG TERM CARE MEDICAID BED DCP follow-up note: CM REVIEWED CHART, PT CONTINUES ON 3 LITERS OXYGEN ON HIGH FLOW CANNULA. [facility] HAS ACCEPTED FOR OUTPATIENT DIALYSIS, HAVE TTS 1215 DIALYSIS SCHEDULE, DEPENDENT UPON THE [facility] OBTAINING A BERI CHAIR AND TRANSPORTATION. CM FAXED HOSPITAL UPDATE TO [facility], . CM RECEIVED CALL FROM KELLIE OF [facility], . KELLIE ADVISED THE NEW JOSSUE CHAIR WILL NOT BE IN UNTIL SATURDAY OF NEXT WEEK. CM EXPLAINED THAT INSURANCE HAS PROVIDED HOSPITAL AUTHORIZATION THRU TODAY AND ANTICIPATED DISCHARGE TO THE [facility]. KELLIE WILL CHECK WITH THE PINION STAKER AND CALL CM WITH UPDATE. [facility] WILL NOT ACCEPT PT UNTIL THE CHAIR IS DELIVERED TO FACLITY. THE FACILITY CAN ACCOMODATE 3LITERS OXYGEN ON HIGH FLOW CANNULA. PT NOTIFIED, IMPORTANT MESSAGE FROM MEDICARE PROVIDED AND EXPLAINED. PT WANTS TO RETURN TO THE [facility] SOON POSSIBLE AND IS NOT HAPPY WITH TIME IT IS TAKING FOR THE [facility] TO MAKE ACCOMODATION FOR HIM TO RETURN "HOME". PT ASKED FOR CM ASSISTANCE IN CALLING NUMBER ON HIS CELL PHONE, CM ASSISTED; PT BEGAN TALKING TO THE [facility] REGARDING GETTING HIS BERI CHAIR, CM LEFT ROOM. [facility] WILL CALL WHEN NEW BERIATRIC CHAIR IS RECEIVED AND THEY ARE ABLE TO ACCEPT PT BACK IN FACILITY, THEY NOW ANTICIPATE 08-04-18. ONCE ACCEPTED AND DISCHARGE ORDERS RECEIVED, CALL NURSE REPORT TO [facility], , FAX DISCHARGE INFORMATION TO [facility], . PT TO TRANSPORT VIA AMBULANCE. PEPE INTERIANO, CASE MANAGEMENT DCP- Discharge Planning Updated by [id number]: Pepe Interiano on 07/23/18 9:[address] Patient Name: FREEMAN ALBRECHT Encounter No: [id number] : 1950 Primary Insurance: [facility] MEDICARE HMO or PPO Anticipated DC Date: 07-23-2018 Planned Disposition: Nursing Facility [facility] External Planned Provider: [facility], [facility] MEDICAID BED DCP follow-up note: CM REVIEWED CHART, PT CONTINUES ON 3 LITERS OXYGEN ON HIGH FLOW CANNULA. CM CALLED AND SPOKE TO BILL OF [facility]IENT [facility], , WHO CHECKED WITH [facility], THEY HAVE ACCEPTED, HAVE TTS 1215 DIALYSIS SCHEDULE BUT CANNOT ADMIT FOR OUTPATIENT DIALYSIS UNTIL 07-29-18 THEY HAVE A VISITOR HAVING DIALYSIS IN THAT CHAIR TIME UNTIL 07-26-18. CM NOTIFED RENAL NURSE ILSA. CM HAS REQUESTED THAT FACILITY ACCEPT PT ON Saturday07-26-18, AFTER HOSPITAL DIALYSIS. CM WAITING ADMISSION DETERMINATION FROM [facility] WHO INFORMED CM THAT PT'S DIALYSIS SCHEDULE HAS BEEN OBTAINED: [facility], TTS, 1215 HOURS, [facility] TO TRANSPORT, CAN ADMIT TO OUTPATIENT CLINIC ON 07-29-18. PEPE INTERIANO, CASE MANAGEMENT Appended by Pepe Interiano on 07/23/2018 10:54 CDT: CM CALLED AND SPOKE TO MARGARET AT [facility], . THEY WERE USING A BORROWED JOSSUE CHAIR WHICH BROKE AND THEY ORDERED A NEW ONE, WHICH SHOULD BE IN EARLY NEXT WEEK. THEY WILL NOT ACCEPT PT UNTIL THE CHAIR IS DELIVERED TO [facility]. THE FACILITY CAN ACCOMODATE 3LITERS OXYGEN ON HIGH FLOW CANNULA. [facility] WILL CALL WHEN NEW BERIATRIC CHAIR IS RECEIVED AND THEY ARE ABLE TO ACCEPT PT BACK IN FACILITY. ONCE ACCEPTED AND DISCHARGE ORDERS RECEIVED, CALL NURSE REPORT TO [facility], , FAX DISCHARGE INFORMATION TO [facility], . PT TO TRANSPORT VIA AMBULANCE. SIENA HILARIO MANAGEMENT DCP- Discharge Planning Updated by [id number]: Pepe Interiano on 07/22/18 4:[address] Patient Name: FREEMAN ALBRECHT Encounter No: [id number] : 1950 Primary Insurance: [facility] MEDICARE HMO or PPO Anticipated DC Date: 07-15-2018 Planned Disposition: Nursing Facility NII Cert External Planned Provider: [facility], CLERICAL [facility]GER C[facility] MEDICAID BED DCP follow-up note: CM REVIEWED CHART, PT CONTINUES ON 3 LITERS OXYGEN ON HIGH FLOW CANNULA. FAXED UPDATED NOTES TO [facility], . CM TO CALL AND FOLLOW UP WITH MARGARET AT [facility] WHO IS CHECKING TO SEE IF THE FACILITY CAN MEET PT'S NEEDS FOR OUTPATIENT DIALYSIS ARRANGEMENTS. Pepe Interiano, CASE MANAGEMENT Appended by Pepe Interiano on 07/22/2018 17:21 CDT: CM CALLED AND SPOKE TO LIZ, CAMP COOK FOR [facility], . LIZ REPORTS RECEIVING UPDATES YESTERDAY AND TODAY, MARGARET, PINION STAKER IS OUT TODAY AND THEY HAVE MADE ARRANGEMENTS TO GET PT TO AND FROM DIALYSIS FROM THE [facility]. LIZ REPORTS HAVING DIALYSIS SCHEDULE FOR PT OF TTS AT 1215 AT [facility]. LIZ WILL DISCUSS PT'S CONDITION AND NEED FOR HIGH FLOW OXYGEN AND HAVE MARGARET CALL CM TO CONFIRM THAT THEY CAN MEET PT'S OXYGEN NEEDS FOR READMISSION TO [facility] AT [facility]. PT NOTIFIED AND IN AGREEMENT WITH RETURN TO THE [facility]. IMPORTANT MESSAGE FROM MEDICARE PROVIDED AND EXPLAINED, PT CONTINUES TO REPORT INABILITY TO MOVE ARMS ENOUGH TO SIGN NAME. CM WAITING ADMISSION DETERMINATION FROM [facility] WHO INFORMED CM THAT PT'S DIALYSIS SCHEDULE HAS BEEN OBTAINED: [facility], TTS, 1215 HOURS, [facility] TO TRANSPORT. PEPE INTERIANO, CASE MANAGEMENT DCP- Discharge Planning Updated by [id number]: Pepe Interiano on 07/21/18 8:[address] Patient Name: FREEMAN ALBRECHT Encounter No: [id number] : 1950 Primary Insurance: [facility] MEDICARE HMO or PPO Anticipated DC Date: 07-15-2018 Planned Disposition: Nursing Facility [facility] Cert External Planned Provider: [facility], LONG TERM CARE MEDICAID BED DCP follow-up note: CM REVIEWED CHART, PT NOW ON 3 LITERS OXYGEN ON HIGH FLOW CANNULA. FAXED UPDATED NOTES TO [facility], . CM TO CALL AND FOLLOW UP WITH MARGARET AT [facility] WHO IS CHECKING TO SEE IF THE FACILITY CAN MEET PT'S NEEDS FOR OUTPATIENT DIALYSIS ARRANGEMENTS. Pepe Interiano CASE MANAGEMENT DCP- Discharge Planning Updated by [id number]: Pepe Interiano on 07/17/18 3:[address] Patient Name: FREEMAN ALBRECHT Encounter No: [id number] : 1950 Primary Insurance: [facility] MEDICARE HMO or PPO Anticipated DC Date: 07-15-2018 Planned Disposition: Nursing Facility [facility] Cert External Planned Provider: [facility], LONG TERM CARE MEDICAID BED DCP follow-up note: CM CALLED FOR PINION STAKER MARGARET OF [facility], , SPOKE TO KELLIE MARGARET NOT IN TODAY. FAXED UPDATE HAS BEEN RECEIVED BY FACILITY TODAY. CM INFORMED OF DOCTORS PLAN TO DISCHARGE ONCE OXYGEN LEVEL CAN BE PROVIDED SAFELY BY FACILITY. KELLIE WILL NOTIFY MARGARET TOMORROW, DISCUSS OXYGEN NEEDS WITH DIALYSIS UNIT AND CALL CM WITH DETERMINATION. CM SPOKE TO PT IN ROOM, PT WANTS TO GO BACK TO THE [facility] WHERE HE LIVES. IMPORTANT MESSAGE FROM MEDICARE PROVIDED AND DISCUSSED. CM WAITING RETURN CALL FROM MARGARET OF [facility]. SIENA Hilario DCP- Discharge Planning Updated by [id number]: Pepe Interiano on 07/15/18 5:[address] Patient Name: FREEMAN ALBRECHT Encounter No: [id number] : 1950 Primary Insurance: [facility] MEDICARE HMO or PPO Anticipated DC Date: 07-15-2018 Planned Disposition: Nursing Facility [facility] Cert External Planned Provider: [facility] DCP follow-up note: CM REVIEWED CHART, PT NOW ON 10 LITERS OXYGEN ON HIGH FLOW CANNULA. FAXED UPDATED NOTES TO [facility], . CM TO CALL AND FOLLOW UP WITH [facility]ARGAR[facility] AT [facility] WHO IS CHECKING TO SEE IF THE FACILITY CAN MEET PT'S NEEDS FOR OUTPATIENT DIALYSIS ARRANGEMENTS. Pepe Interiano CASE MANAGEMENT Appended by Pepe Interiano on 07/15/2018 18:24 CDT: CM SPOKE TO BILL ANN [facility] WHO REPORTS THAT THE OUTPATIENT DIALYSIS CLINIC PLANS TO ACCEPT PT FOR OUTPATIENT DIALYSIS SERVICES ONCE THE [facility] HAS ARRANGED APPROPRIATE TRANSPORT CHAIR AND TRANSPORTATION TO AND FROM DIALYSIS. BILL ASKED TO BE NOTIFIED ONCE THIS HAS BEEN VERIFIED TO COMPLETE OUTPATIENT DIALYSIS CLINIC ARRANGEMENTS. CM NOTIFED BILL OF PT'S DECLINE AND HIGH OXYGEN NEED AT THIS TIME. CM TO KEEP BOTH IBLL ANN PATIENT LOGAN AND MARGARET [facility] ADVISED OF PT'S CONDITION AND FOLLOW UP WITH MARGARET AT [facility] WHO IS CHECKING TO SEE IF THE FACILITY CAN MEET PT'S NEEDS FOR OUTPATIENT DIALYSIS ARRANGEMENTS. SIENA HILARIO DCP- Discharge Planning Updated by [id number]: Pepe Interiano on 07/02/18 11:[address] Patient Name: FREEMAN ALBRECHT Encounter No: [id number] : 1950 Primary Insurance: [facility] MEDICARE HMO or PPO Anticipated DC Date: Planned Disposition: Nursing Facility [facility] Cert External Planned Provider: [facility], [facility] MEDICAID BED DCP follow-up note: CM RECEIVED MESSAGE FROM BILL BENSON OF [facility], PT CAN ATTEND OUTPATIENT DIALYSIS AT [facility] IN [place] IF HE HAS BERIATRIC JOSSUE CHAIR THAT HE CAN SIT IN AT THE UNIT FOR DURATION OF DIALYSIS. CM CALLED AND SPOKE TO PINION STAKER MARGARET OF [facility], , INFORMED OF NEED OF OUTPATIENT DIALYSIS AND BERI JOSSUE CHAIR AND TRANSPORTATION TO AND FROM OUTPATIENT DAILYSIS. MARGARET IS NOT SURE IF THEY WILL BE ABLE TO ACCOMODATE PT'S NEEDS BUT WILL EXPLORE OPTIONS NOW. PT HAS BEEN UP TO HIS HOVERROUND SCOOTER AT THE [facility] PRIOR TO HOSPITALIZATION. PT'S BROTHER IS NOT ABLE TO MAKE DECISIONS FOR PT AND PT HAS NO OTHER LIVING FAMILY PER MARGARET. CM MET WITH PT IN ROOM, PT ORIENTED TO SELF AND PLACE AND SITUATION. PT DOES WANT OUTPATIENT DIALYSIS, DOES NOT WANT TO MOVE FROM HIS [facility] WHERE HE LIVES WITH HIS BROTHER, AND REPORTS THAT HE IS NORMALLY UP [facility] EVERY DAY REPORTING THE [facility] HAS A LIFT TO GET HIM UP. PT REPORTS HE PROVIDED HIS FRIEND ROD SALGADO WITH POWER OF CORRECTIONAL MEDICINE PHYSICIAN IF IT IS EVER NEEDED. CM SPOKE TO ROD VANCER[place]GE, PT'S FRIEND AT [phone]. ROD STATES THAT PT GAVE HIM A PACKET OF INFORMATION TO BE OPENED IN EVENT OF PT'S BUT HE HAS NEVER LOOKED INSIDE TO KNOW WHAT IS IN THERE. BOTH PT AND PT'S BROTHER ALWAYS TOLD HIM THAT IF PT'S BROTHER IS NOT ABLE TO MAKE DECISIONS, ROD WOULD BE IT. ROD WILL LOOK IN THE PACKET OF INFORMATION TO SEE IF HE HAS MEDICAL POWER OF CORRECTIONAL MEDICINE PHYSICIAN IF IT IS EVER NEEDED. CM FAXED UPDATED NOTES TO [facility], . MARGARET AT [facility] IS CHECKING TO SEE IF THE FACILITY CAN MEET PT'S NEEDS FOR OUTPATIENT DIALYSIS ARRANGEMENTS. Pepe Interiano, CASE MANAGEMENT DCP- Discharge Planning Updated by [id number]: Pepe Interiano on 07/01/18 4:[address] Patient Name: FREEMAN ALBRECHT Encounter No: [id number] : 1950 Primary Insurance: [facility] MEDICARE HMO or PPO Anticipated DC Date: Planned Disposition: Nursing Facility [facility] External Planned Provider: [facility], CLERICAL [facility] C[facility] MEDICAID BED DCP follow-up note: CM SPOKE TO ROD SALGADO, PT'S FRIEND AT NURSES STATION. ROD BELIEVES PT HAS GIVEN UP ON LIFE. ROD IS CONCERNED OF HOW PT WILL GET TO AND FROM DILALYSIS WHILE AT [facility] AND ASKED CM TO CONTACT THE [facility] TO DISCUSS THIS ROD FEELS THAT PT MAY NOT BE ABLE TO TRANSPORT FOR DIAYSIS OR SIT IN CHAIR FOR DIALYSIS IN A CLINIC. ROD PROVIDED HIS CONTACT PHONE IF NEEDED, . CM FAXED UPDATED NOTES TO [facility], AND WILL CALL FACILITY TOMORROW TO DISCUSS OUTPATIENT DIALYSIS. Pepe Interiano, CASE MANAGEMENT DCP- Discharge Planning Updated by [id number]: Pepe Interiano on 06/27/18 11:[address] Patient Name: FREEMAN ALBRECHT Admission Status: Elective Accout number: [id number] Admission Date: 06-23-2018 : 1950 Admission Diagnosis:ACUTE KIDNEY FAILURE, UNSPECIFIED Attending: Emily Amador Current LOS: 4 Anticipated DC Date: Planned Disposition: Nursing Facility [facility] Primary Insurance: [facility] MEDICARE HMO or PPO PLANNED EXTERNAL PROVIDER: [facility], LONG TERM CARE MEDICAID BED Discharge Planning Comments: * Is the patient Alert and Oriented? No 0 * How many steps to enter\\exit or inside your home? NONE 0 * PCP DR. ESCAMILLA 0 * Pharmacy [facility] 0 * Preadmission Environment [facility] 0 * Facility Name [facility] 0 * ADLs Total Dependent 0 * Equipment Other 0 * Other Equipment ALL MEDICAL EQUIPMENT PROVIDED BY FACILITY 0 * List name and contact numbers for known caregivers / representatives who currently or will assist patient after discharge: ROD SALGADO, FRIEND, 0 * Verbal permission to speak to the caregivers and representatives has been obtained from the patient. N/A 0 * Community resources currently utilized None 0 * Please name any agencies selected above. NONE 0 * Additional services required to return to the preadmission environment? No 0 * Can the patient safely return to the preadmission environment? Yes 0 * Has this patient been hospitalized within the prior 30 days at any hospital? No 0 CM ATTEMPTED TO ASSESS PT IN ROOM FOR DISCHARGE PLANNING AND NEEDS. PT REPORTS LIVING AT HOME ALONE AND INDEPENDENTLY. PT FALLING ASLEEP DURING CONSULT AND TOOK LONG PERIODS OF TIME AND CM CONSTANTLY AWAKING PT AND REPEATING QUESTIONS TO GET ANY RESPONSE. CM REVIEWED CHART WHICH INDICATES PT TRANSFERRED FROM [facility] AND ADMITTED TO THEM FROM "[facility]." CM CALLED PT'S LISTED EMERGENCY CONTACT, BROTHER HENRY, . THE NUMBER WAS ANSWERED AT [facility], CM SPOKE TO PT'S [facility] NURSE, CORIE, WHO INFORMED CM THAT BOTH PT AND PT'S BROTHER, MERCEDES, ARE IN CLERICAL MANAGER CARE AT THE [facility]. PT DOES NOT CURRENTLY HAVE OUTPATIENT DIALYSIS, PT IS VERY NON COMPLIANT WITH FLUID RESTRICTIONS. PT IS TOTAL CARE AT THE [facility] AND THEY PLAN TO ACCEPT BACK. CM FAXED UPDATE TO [facility], . FOR DISCHARGE, FAX DISCHARGE INFORMATION TO [facility], ; NURSE REPORT TO BE CALLED TO [facility], . PT TO TRANSPORT VIA AMBULANCE. Training Project Manager: Pepe Interiano DCPIA - Discharge Planning Initial Assessment Updated by [id number]: Pepe Interiano on 07/02/18 11:42 am * Is the patient Alert and Oriented? No * How many steps to enter\\exit or inside your home? NONE * PCP DR. ESCAMILLA * Pharmacy [facility] * Preadmission Environment [facility] * Facility Name [facility] * ADLs Partial Dependent * Partial ADLs (Assistance needed) Bathing Dressing Medication Management Toileting Transfers * Equipment Other * Other Equipment ALL MEDICAL EQUIPMENT PROVIDED BY FACILITY * List name and contact numbers for known caregivers / representatives who currently or will assist patient after discharge: ROD SALGADO, FRIEND, * Verbal permission to speak to the caregivers and representatives has been obtained from the patient. N/A * Community resources currently utilized None * Please name any agencies selected above. NONE * Additional services required to return to the preadmission environment? No * Can the patient safely return to the preadmission environment? Yes * Has this patient been hospitalized within the prior 30 days at any hospital? No Coverage Notice Reviewer: [id number] - Pepe Interiano Notice Issued Date-Time: 08/04/2018 11:40 Notice Type: IM Discharge Notice Notice Delivered To: Patient Relationship to Patient: Solid Waste Technician Name: Delivery Method: HAND - Hand Delivered Chela Days: Prior Verbal Notification: Recipient Understood Notice: Yes Recipient Signature: Yes Med Rec Note Co-signed by Attending: Coverage Notice Comment: Reviewer: GLENNY Interiano Notice Issued Date-Time: 07/29/2018 9:25 Notice Type: IM Discharge Notice Notice Delivered To: Patient Relationship to Patient: Solid Waste Technician Name: Delivery Method: HAND - Hand Delivered Chela Days: Prior Verbal Notification: Recipient Understood Notice: Yes Recipient Signature: Yes Med Rec Note Co-signed by Attending: Coverage Notice Comment: Reviewer: GLENNY Interiano Notice Issued Date-Time: 07/22/2018 16:30 Notice Type: IM Discharge Notice Notice Delivered To: Patient Relationship to Patient: Solid Waste Technician Name: Delivery Method: HAND - Hand Delivered Chela Days: Prior Verbal Notification: Recipient Understood Notice: Yes Recipient Signature: Med Rec Note Co-signed by Attending: Coverage Notice Comment: Reviewer: GLENNY Interiano Notice Issued Date-Time: 07/17/2018 16:00 Notice Type: IM Discharge Notice Notice Delivered To: Patient Relationship to Patient: Solid Waste Technician Name: Delivery Method: HAND - Hand Delivered Chela Days: Prior Verbal Notification: Recipient Understood Notice: Yes Recipient Signature: Med Rec Note Co-signed by Attending: Coverage Notice Comment: Last DP export: 08/04/18 10:55 Patient Name: FREEMAN ALBRECHT Page [id number] at 1203 All edits/amendments must be made on the electronic document DICTATION DATE: 08/04/18 1202 TOOL AND DIE TECHNICIAN: CABRERA 08/04/18 1202 RPT#: [id number] DC DATE: STATUS: ADM IN [facility] [address] [place] [address] END OF REPORT
--- NOTE | ~2018-06-23 | MORECARE ---
CASE MANAGEMENT DISCHARGE SUMMARY PATIENT: FREEMAN ALBRECHT UNIT: [id number] ADM DATE: 06/23/18 AGE: 68 : 51 SEX: M ROOM/BED: D.2134 AUTHOR: ASHLEYDOC PHYSICIAN: REFERRING PHYSICIAN: EMILY AMADOR MD DATE OF SERVICE: 07/29/18 Discharge Plan Patient Name: FREEMAN ALBRECHT [facility] [facility] 1950 Planned Disposition: Nursing Facility NII Cert Anticipated Discharge Date: 07/29/18 Discharge Date: Expected LOS: 36 Initial Reviewer: [email or web address] Initial Review Date: 06/27/2018 Generated: 07/29/18 10:15 am DCP- Discharge Planning Updated by [id number]: Pepe Interiano on 07/23/18 9:[address] Patient Name: FREEMAN ALBRECHT Encounter No: [id number] : 1950 Primary Insurance: [facility] HMO or PPO Anticipated DC Date: 07-23-2018 Planned Disposition: Nursing Facility NII Cert External Planned Provider: [facility], SKILLED NURSING CARE MEDICAID BED DCP follow-up note: CM REVIEWED CHART, PT CONTINUES ON 3 LITERS OXYGEN ON HIGH FLOW CANNULA. CM CALLED AND SPOKE TO BILL OF [facility], , WHO CHECKED WITH [facility], THEY HAVE ACCEPTED, HAVE TTS 1215 DIALYSIS SCHEDULE BUT CANNOT ADMIT FOR OUTPATIENT DIALYSIS UNTIL 07-29-18 THEY HAVE A VISITOR HAVING DIALYSIS IN THAT CHAIR TIME UNTIL 07-26-18. CM NOTIFED RENAL NURSE ILSA. CM HAS REQUESTED THAT FACILITY ACCEPT PT ON Saturday07-26-18, AFTER HOSPITAL DIALYSIS. CM WAITING ADMISSION DETERMINATION FROM [facility] WHO INFORMED CM THAT PT'S DIALYSIS SCHEDULE HAS BEEN OBTAINED: [facility], TTS, 1215 HOURS, [facility] TO TRANSPORT, CAN ADMIT TO OUTPATIENT CLINIC ON 07-29-18. PEPE INTERIANO, CASE MANAGEMENT Appended by Pepe Interiano on 07/23/2018 10:54 CDT: RACHEL CALLED AND SPOKE TO MARGARET AT [facility], . THEY WERE USING A BORROWED JOSSUE CHAIR WHICH BROKE AND THEY ORDERED A NEW ONE, WHICH SHOULD BE IN EARLY NEXT WEEK. THEY WILL NOT ACCEPT PT UNTIL [facility] THE FACILITY CAN ACCOMODATE 3LITERS OXYGEN ON HIGH FLOW CANNULA. [facility] WILL CALL WHEN NEW BERIATRIC CHAIR IS RECEIVED AND THEY ARE ABLE TO ACCEPT PT BACK IN FACILITY. ONCE ACCEPTED AND DISCHARGE ORDERS RECEIVED, CALL NURSE REPORT TO [facility], , FAX DISCHARGE INFORMATION TO [facility] AND [facility], . PT TO TRANSPORT VIA AMBULANCE. PEPE INTERIANO, CASE MANAGEMENT DCP- Discharge Planning Updated by [id number]: Pepe Interiano on 07/22/18 4:[address] Patient Name: FREEMAN ALBRECHT Encounter No: [id number] : 1950 Primary Insurance: [facility] HMO or PPO Anticipated DC Date: 07-15-2018 Planned Disposition: Nursing Facility NII Cert External Planned Provider: [facility], SKILLED NURSING CARE MEDICAID BED DCP follow-up note: CM REVIEWED CHART, PT CONTINUES ON 3 LITERS OXYGEN ON HIGH FLOW CANNULA. FAXED UPDATED NOTES TO [facility] AND [facility], . CM TO CALL AND FOLLOW UP WITH MARGARET AT [facility] WHO IS CHECKING TO SEE IF THE FACILITY CAN MEET PT'S NEEDS FOR OUTPATIENT DIALYSIS ARRANGEMENTS. Pepe Interiano, CASE MANAGEMENT Appended by Pepe Interiano on 07/22/2018 17:21 CDT: CM CALLED AND SPOKE TO LIZ, SHOOTING GALLERY OPERATOR FOR [facility], . LIZ REPORTS RECEIVING UPDATES YESTERDAY AND TODAY, MARGARET, MACHINE CASTINGS PLASTERER IS OUT TODAY AND THEY HAVE MADE ARRANGEMENTS TO GET PT TO AND FROM DIALYSIS FROM THE [facility]. LIZ REPORTS HAVING DIALYSIS SCHEDULE FOR PT OF TTS AT 1215 AT [facility]. LIZ WILL DISCUSS PT'S CONDITION AND NEED FOR HIGH FLOW OXYGEN AND HAVE MARGARET CALL CM TO CONFIRM THAT THEY CAN MEET PT'S OXYGEN NEEDS FOR READMISSION TO SKILLED NURSING CARE AT [facility] AND [facility]. PT NOTIFIED AND IN AGREEMENT WITH RETURN TO THE [facility]. IMPORTANT MESSAGE FROM MEDICARE PROVIDED AND EXPLAINED, PT CONTINUES TO REPORT INABILITY TO MOVE ARMS ENOUGH TO SIGN NAME. CM [facility] WHO INFORMED CM THAT PT'S DIALYSIS SCHEDULE HAS BEEN OBTAINED: [facility], TTS, 1215 HOURS, [facility] TO TRANSPORT. SIENA HILARIO DCP- Discharge Planning Updated by [id number]: Ppee Interiano on 07/21/18 8:[address] Patient Name: FREEMAN ALBRECHT Encounter No: [id number] : 1950 Primary Insurance: [facility] HMO or PPO Anticipated DC Date: 07-15-2018 Planned Disposition: Nursing Facility [facility] Cert External Planned Provider: [facility], LONG TERM CARE MEDICAID BED DCP follow-up note: CM REVIEWED CHART, PT NOW ON 3 LITERS OXYGEN ON HIGH FLOW CANNULA. FAXED UPDATED NOTES TO [facility], . CM TO CALL AND FOLLOW UP WITH MARGARET AT [facility] WHO IS CHECKING TO SEE IF THE FACILITY CAN MEET PT'S NEEDS FOR OUTPATIENT DIALYSIS ARRANGEMENTS. SIENA Hilario DCP- Discharge Planning Updated by [id number]: Pepe Interiano on 07/17/18 3:[address] Patient Name: FREEMAN ALBRECHT Encounter No: [id number] : 1950 Primary Insurance: [facility] HMO or PPO Anticipated DC Date: 07-15-2018 Planned Disposition: Nursing Facility [facility] Cert External Planned Provider: [facility], LONG TERM CARE MEDICAID BED DCP follow-up note: CM CALLED FOR MACHINE CASTINGS PLASTERER MARGARET OF [facility], , SPOKE TO KELLIE MARGARET NOT IN TODAY. FAXED UPDATE HAS BEEN RECEIVED BY FACILITY TODAY. CM INFORMED OF DOCTORS PLAN TO DISCHARGE ONCE OXYGEN LEVEL CAN BE PROVIDED SAFELY BY FACILITY. KELLIE WILL NOTIFY MARGARET TOMORROW, DISCUSS OXYGEN NEEDS WITH DIALYSIS UNIT AND CALL CM WITH DETERMINATION. CM SPOKE TO PT IN ROOM, PT WANTS TO GO BACK TO THE [facility] WHERE HE LIVES. IMPORTANT MESSAGE FROM MEDICARE PROVIDED AND DISCUSSED. CM WAITING RETURN CALL FROM MARGARET OF [facility]. SIENA Hilario DCP- Discharge Planning Updated by [id number]: Pepe Interiano on 07/15/18 5:[address] Patient Name: FREEMAN ALBRECHT Encounter No: [id number] : 1950 Primary Insurance: [facility] HMO or PPO Anticipated DC Date: 07-15-2018 Planned Disposition: Nursing Facility [facility] Cert [facility] follow-up note: CM REVIEWED CHART, PT NOW ON 10 LITERS OXYGEN ON HIGH FLOW CANNULA. FAXED UPDATED NOTES TO [facility], . CM TO CALL AND FOLLOW UP WITH MARGARET AT [facility] WHO IS CHECKING TO SEE IF THE FACILITY CAN MEET PT'S NEEDS FOR OUTPATIENT DIALYSIS ARRANGEMENTS. Pepe Interiano, CASE MANAGEMENT Appended by Pepe Interiano on 07/15/2018 18:24 CDT: RACHEL SPOKE TO BILL ANN [facility] WHO REPORTS THAT THE OUTPATIENT DIALYSIS CLINIC PLANS TO ACCEPT PT FOR OUTPATIENT DIALYSIS SERVICES ONCE THE [facility] HAS ARRANGED APPROPRIATE TRANSPORT CHAIR AND TRANSPORTATION TO AND FROM DIALYSIS. BILL ASKED TO BE NOTIFIED ONCE THIS HAS BEEN VERIFIED TO COMPLETE OUTPATIENT DIALYSIS CLINIC ARRANGEMENTS. CM NOTIFED BILL OF PT'S DECLINE AND HIGH OXYGEN NEED AT THIS TIME. CM TO KEEP BOTH BILL ANN [facility] AND MARGARET [facility] ADVISED OF PT'S CONDITION AND FOLLOW UP WITH MARGARET AT [facility] WHO IS CHECKING TO SEE IF THE FACILITY CAN MEET PT'S NEEDS FOR OUTPATIENT DIALYSIS ARRANGEMENTS. PEPE INTERIANO, CASE MANAGEMENT DCP- Discharge Planning Updated by [id number]: Pepe Interiano on 07/02/18 11:[address] Patient Name: FREEMAN ALBRECHT Encounter No: [id number] : 1950 Primary Insurance: [facility] HMO or PPO Anticipated DC Date: Planned Disposition: Nursing Facility [facility] Cert External Planned Provider: [facility], SKILLED NURSING CARE MEDICAID BED DCP follow-up note: CM RECEIVED MESSAGE FROM BILL BENSON OF [facility], PT CAN ATTEND OUTPATIENT DIALYSIS AT [facility] IN [place] IF HE HAS BERIATRIC JOSSUE CHAIR THAT HE CAN SIT IN AT THE UNIT FOR DURATION OF DIALYSIS. RACHEL CALLED AND SPOKE TO MACHINE CASTINGS PLASTERER MARGARET OF [facility], , INFORMED OF NEED OF OUTPATIENT DIALYSIS AND BERI JOSSUE CHAIR AND TRANSPORTATION TO AND FROM OUTPATIENT DAILYSIS. MARGARET IS NOT SURE IF THEY WILL BE ABLE TO ACCOMODATE PT'S NEEDS BUT WILL EXPLORE OPTIONS NOW. PT HAS BEEN UP TO HIS HOVERROUND SCOOTER AT THE [facility] PRIOR TO HOSPITALIZATION. PT'S BROTHER IS NOT ABLE TO MAKE DECISIONS FOR PT AND PT HAS NO OTHER LIVING FAMILY PER MARGARET. CM MET WITH PT IN ROOM, PT ORIENTED TO SELF AND PLACE AND SITUATION. PT DOES WANT OUTPATIENT DIALYSIS, DOES NOT WANT TO MOVE FROM HIS [facility] WHERE HE LIVES WITH HIS BROTHER, AND REPORTS THAT HE IS NORMALLY UP TO HIS HOVERROUND SCOOTER EVERY DAY REPORTING THE [facility] HAS A LIFT TO GET HIM UP. PT REPORTS HE PROVIDED HIS FRIEND ROD SALGADO WITH POWER OF INSURANCE HEALTHCARE CONSULTANT IF IT IS EVER NEEDED. CM SPOKE TO ROD DAMIAN, PT'S FRIEND AT [phone]. ROD STATES THAT PT GAVE HIM A PACKET OF INFORMATION TO BE OPENED IN EVENT OF PT'S BUT HE HAS NEVER LOOKED INSIDE TO KNOW WHAT IS IN THERE. BOTH PT AND PT'S BROTHER ALWAYS TOLD HIM THAT IF PT'S BROTHER IS NOT ABLE TO MAKE DECISIONS, ROD WOULD BE IT. ROD WILL LOOK IN THE PACKET OF INFORMATION TO SEE IF HE HAS MEDICAL POWER OF INSURANCE HEALTHCARE CONSULTANT IF IT IS EVER NEEDED. CM FAXED UPDATED NOTES TO [facility], . MARGARET AT [facility] IS CHECKING TO SEE IF THE FACILITY CAN MEET PT'S NEEDS FOR OUTPATIENT DIALYSIS ARRANGEMENTS. Pepe Interiano, CASE MANAGEMENT DCP- Discharge Planning Updated by [id number]: Pepe Interiano on 07/01/18 4:[address] Patient Name: FREEMAN ALBRECHT Encounter No: [id number] : 1950 Primary Insurance: [facility] HMO or PPO Anticipated DC Date: Planned Disposition: Nursing Facility NII Cert External Planned Provider: [facility], SENIOR HYDROGEOLOGIST CARE MEDICAID BED DCP follow-up note: CM SPOKE TO ROD DAMIAN, PT'S FRIEND AT NURSES STATION. ROD BELIEVES PT HAS GIVEN UP ON LIFE. ROD IS CONCERNED OF HOW PT WILL GET TO AND FROM DILALYSIS WHILE AT [facility] AND ASKED CM TO CONTACT THE [facility] TO DISCUSS THIS ROD FEELS THAT PT MAY NOT BE ABLE TO TRANSPORT FOR DIAYSIS OR SIT IN CHAIR FOR DIALYSIS IN A CLINIC. ROD PROVIDED HIS CONTACT PHONE IF NEEDED, . CM FAXED UPDATED NOTES TO [facility], AND WILL CALL FACILITY TOMORROW TO DISCUSS OUTPATIENT DIALYSIS. Pepe Interiano, CASE MANAGEMENT DCP- Discharge Planning Updated by [id number]: Pepe Interiano on 06/27/18 11:[address] Patient Name: FREEMAN ALBRECHT Admission Status: Elective Accout number: [id number] Admission Date: 06-23-2018 : 1950 Admission Diagnosis:ACUTE KIDNEY FAILURE, UNSPECIFIED Attending: Emily Amador Current LOS: 4 Anticipated DC Date: Planned Disposition: Nursing Facility NII [facility] Primary Insurance: [facility] HMO or PPO PLANNED EXTERNAL PROVIDER: [facility], SKILLED NURSING CARE MEDICAID BED Discharge Planning Comments: * Is the patient Alert and Oriented? No 0 * How many steps to enter\\exit or inside your home? NONE 0 * PCP DR. ESCAMILLA 0 * Pharmacy [facility] 0 * Preadmission Environment [facility] 0 * Facility Name [facility] 0 * ADLs Total Dependent 0 * Equipment Other 0 * Other Equipment ALL MEDICAL EQUIPMENT PROVIDED BY FACILITY 0 * List name and contact numbers for known caregivers / representatives who currently or will assist patient after discharge: ROD SALGADO, FRIEND, 0 * Verbal permission to speak to the caregivers and representatives has been obtained from the patient. N/A 0 * Community resources currently utilized None 0 * Please name any agencies selected above. NONE 0 * Additional services required to return to the preadmission environment? No 0 * Can the patient safely return to the preadmission environment? Yes 0 * Has this patient been hospitalized within the prior 30 days at any hospital? No 0 CM ATTEMPTED TO ASSESS PT IN ROOM FOR DISCHARGE PLANNING AND NEEDS. PT REPORTS LIVING AT HOME ALONE AND INDEPENDENTLY. PT FALLING ASLEEP DURING CONSULT AND TOOK LONG PERIODS OF TIME AND CM CONSTANTLY AWAKING PT AND REPEATING QUESTIONS TO GET ANY RESPONSE. CM REVIEWED CHART WHICH INDICATES PT TRANSFERRED FROM [facility] AND ADMITTED TO THEM FROM "[facility]." CM CALLED PT'S LISTED EMERGENCY CONTACT, BROTHER HENRY, . THE NUMBER WAS ANSWERED AT [facility], CM SPOKE TO PT'S SENIOR LIVING NURSE, CORIE, WHO INFORMED CM THAT BOTH PT AND PT'S BROTHER, MERCEDES, ARE IN SENIOR HYDROGEOLOGIST CARE AT THE S[facility]IOR [facility]. PT DOES NOT CURRENTLY HAVE OUTPATIENT DIALYSIS, PT IS VERY NON COMPLIANT WITH FLUID RESTRICTIONS. PT IS TOTAL CARE AT THE [facility] AND THEY PLAN TO ACCEPT BACK. CM FAXED UPDATE TO [facility], . FOR DISCHARGE, FAX DISCHARGE INFORMATION TO [facility] AND [facility], ; NURSE REPORT TO BE CALLED TO [facility], . PT TO TRANSPORT VIA AMBULANCE. Obstetrician Gynecologist: Pepe Interiano DCPIA - Discharge Planning Initial Assessment Updated by [id number]: Pepe Interiano on 07/02/18 11:42 am * Is the patient Alert and Oriented? No * How many steps to enter\\exit or inside your home? NONE * PCP DR. ESCAMILLA * Pharmacy [facility] * Preadmission Environment [facility] * Facility Name [facility] * ADLs Partial Dependent * Partial ADLs (Assistance needed) Bathing Dressing Medication Management Toileting Transfers * Equipment Other * Other Equipment ALL MEDICAL EQUIPMENT PROVIDED BY FACILITY * List name and contact numbers for known caregivers / representatives who currently or will assist patient after discharge: ROD SALGADO, FRIEND, * Verbal permission to speak to the caregivers and representatives has been obtained from the patient. N/A * Community resources currently utilized None * Please name any agencies selected above. NONE * Additional services required to return to the preadmission environment? No * Can the patient safely return to the preadmission environment? Yes * Has this patient been hospitalized within the prior 30 days at any hospital? No Coverage Notice Reviewer: [email or web address] Interiano Notice Issued Date-Time: 07/17/2018 16:00 Notice Type: IM Discharge Notice Notice Delivered To: Patient Relationship to Patient: Warehouse Traffic Supervisor Name: Delivery Method: HAND - Hand Delivered Chela Days: Prior Verbal Notification: Recipient Understood Notice: Yes Recipient Signature: Med Rec Note Co-signed by Attending: Coverage Notice Comment: Reviewer: GLENNY Interiano Notice Issued Date-Time: 07/22/2018 16:30 Notice Type: IM Discharge Notice Notice Delivered To: Patient Relationship to Patient: Warehouse Traffic Supervisor Name: Delivery Method: HAND - Hand Delivered Chela Days: Prior Verbal Notification: Recipient Understood Notice: Yes Recipient Signature: Med Rec Note Co-signed by Attending: Coverage Notice Comment: Last DP export: 07/23/18 12:06 Patient Name: FREEMAN ALBRECHT Page [id number] at 0915 All edits/amendments must be made on the electronic document DICTATION DATE: 07/29/18913 GINNER HELPER: CABRERA 07/29/18913 RPT#: [id number] DC DATE: STATUS: ADM IN [facility] [address] [place] [address] END OF REPORT
[~2018-06-23 13:42] MED LIST: COLACE100 MG PO; DIABETA5 MG PO; ENULOSE10 G/15 ML PO; FERREX 150 PLUS1 CAP PO; HYDROCODONE-APA1 TAB PO; LASIX INJ40 MG/4 ML IV; LASIX40 MG PO; MAG-OXIDE400 MG PO; MULTI-DAY VITAM1 TAB PO; NORVASC10 MG PO; NOVOLIN R100 U/ML SQ; PROTONIX I40 MG/VIAL IV; PROTONIX40 MG PO; SYNTHROID25 MCG PO; TENORMIN50 MG PO; ZYLOPRIM300 MG PO
[2018-06-23 20:00] VITALS: BP 121/41
[2018-06-24 04:00] VITALS: BP 158/98
[2018-06-24 06:23] LABS: BASOPHILS 0.2 % (0-2); EOSINOPHILS 5.4 % (0-7); HEMATOCRIT 27.5 % (42.0-54.0); HEMOGLOBIN 8.4 g/dL (13.5-17.5); IMMATURE GRANULOCYTES 0.8 % (0-5); LYMPHOCYTES 22.7 % (15-50); MCH 28.6 pg (26.0-34.0); MCHC 30.5 g/dL (31.0-37.0); MCV 93.5 fL (80.0-100.0); NEUTROPHILS 64.9 % (40-80); PLATELET COUNT 181 10x3/uL (130-400); RBC 2.94 10x6/uL (4.20-6.10); RDW 17.4 % (11.5-14.5); WBC 6.3 10x3/uL (4.8-10.8)
[2018-06-24 06:40] LABS: INR 1.09 (0.85-1.17); PROTIME 13.7 SECONDS (11.6-15.0)
[2018-06-24 07:31] LABS: ALBUMIN 2.1 g/dL (3.4-5.0); BILIRUBIN - TOTAL 0.23 mg/dL (0.2-1.3); CALCIUM 7.9 mg/dL (8.5-10.1); CARBON DIOXIDE 28.1 mmol/L (21.0-32.0); CREATININE - SERUM 6.1 mg/dL (0.6-1.3); PHOSPHOROUS 6.9 mg/dL (2.5-4.9); POTASSIUM - SERUM 4.1 mmol/L (3.5-5.1); PROTEIN - SERUM 6.5 g/dL (6.4-8.2)
[2018-06-24 07:41] VITALS: BP 111/52
[2018-06-24 07:53] LABS: COMPLEMENT C4 26.8 mg/dL (17.4-52.2)
[2018-06-24 08:20] LABS: ERYTHROCYTE SEDIMENTATION RATE 48 mm/hr (0-20)
[2018-06-24 11:06] VITALS: BP 109/58
[2018-06-24] MEDS ORDERED: CHRONULAC30 ML PO (11:19)
[2018-06-24] MEDS ORDERED: LEVOTHYROXINE75 MCG PO (11:23)
[2018-06-24] MEDS ORDERED: COREG12.5 MG PO (11:25)
[2018-06-24] MEDS ORDERED: LEVOTHYROXINE112 MCG PO (11:25)
[2018-06-24] MEDS ORDERED: CARDURA2 MG PO (11:26)
[2018-06-24] MEDS ORDERED: HYDRALAZINE HCL50 MG PO (11:27)
[2018-06-24] MEDS ORDERED: FLUTICASONE PRO16 GM NASAL (11:27)
[2018-06-24] MEDS ORDERED: NIFEDIPINE ER30 MG PO (11:30)
[2018-06-24] MEDS ORDERED: ADVAIR 250/501 DISK INH (11:32)
[2018-06-24] MEDS ORDERED: ZANAFLEX2 M1 PO (11:33)
[2018-06-24] MEDS ORDERED: CARAFATE1 G/10 ML PO (11:34)
[2018-06-24] MEDS ORDERED: MIRALAX17 GM PO (11:34)
[2018-06-24] MEDS ORDERED: CLARITIN 10 MG10 MG PO (11:35)
[2018-06-24] MEDS ORDERED: FEROCON CAPSUL1 EACH PO (11:35)
[2018-06-24] MEDS ORDERED: CYCLOBENZAPRINE5 MG PO (11:38)
[2018-06-24] MEDS ORDERED: ASPIRIN81 MG PO (11:38)
[2018-06-24] MEDS ORDERED: IPRAT-ALBUT 0.5-3 ML UPD (11:39)
[2018-06-24] MEDS ORDERED: ATROVENT 0.02%2.5 ML UPD (11:40)
[2018-06-24] MEDS ORDERED: NITROSTAT0.4 MG SL (11:41)
[2018-06-24] MEDS ORDERED: ISOSORBIDE MONO60 M1 PO (11:41)
[2018-06-24] MEDS ORDERED: HUMULIN R100 U/ML SC (11:42)
[2018-06-24] MEDS ORDERED: ACETAMINOPHEN500 M1 PO (11:43)
[2018-06-24] MEDS ORDERED: LACRI-LUBE S.O3.5 G1 EACH EYE (11:44)
[2018-06-24 15:52] VITALS: BP 134/59
[2018-06-24 20:00] VITALS: BP 103/31
[2018-06-25 04:00] VITALS: BP 124/40
[2018-06-25 07:55] VITALS: BP 127/47
[2018-06-25 10:39] VITALS: Ht 165.1 cm; Wt 149.1 kg
[2018-06-25 11:28] VITALS: BP 111/43
[2018-06-25 12:18] LABS: ANA REFLEX - DIRECT Negative (Negative)
[2018-06-25 14:59] LABS: BASOPHILS 0.2 % (0-2); HEMATOCRIT 28.8 % (42.0-54.0); IMMATURE GRANULOCYTES 0.8 % (0-5); LYMPHOCYTES 18.3 % (15-50); MCH 29.6 pg (26.0-34.0); MCHC 31.3 g/dL (31.0-37.0); MCV 94.7 fL (80.0-100.0); MEAN PLATELET VOLUME 9.7 fL (7.4-10.4); NEUTROPHILS 70.7 % (40-80); PLATELET COUNT 198 10x3/uL (130-400); RBC 3.04 10x6/uL (4.20-6.10); RDW 17.4 % (11.5-14.5)
[2018-06-25 15:28] LABS: WBC 8.3 10x3/uL (4.8-10.8)
[2018-06-25 15:30] VITALS: BP 117/45
[2018-06-25 15:40] LABS: CALCIUM 7.8 mg/dL (8.5-10.1); CREATININE - SERUM 6.5 mg/dL (0.6-1.3)
[2018-06-25 17:11] LABS: SPE - A/G RATIO 0.8 (0.7-1.7); SPE - ALBUMIN 2.5 g/dL (2.9-4.4); SPE - ALPHA-1 GLOBULIN 0.1 g/dL (0.0-0.4); SPE - ALPHA-2 GLOBULIN 0.7 g/dL (0.4-1.0); SPE - BETA GLOBULIN 0.9 g/dL (0.7-1.3); SPE - GAMMA GLOBULIN 1.6 g/dL (0.4-1.8); SPE - M-SPIKE Not Observed g/dL (Not Observed); SPE - TOTAL PROTEIN 5.8 g/dL (6.0-8.5)
[2018-06-25 20:38] VITALS: BP 128/55
[2018-06-25 21:08] LABS: HEPATITIS C ANTIBODY <0.1 (0.0-0.9)
[2018-06-26 04:00] VITALS: BP 131/89
[2018-06-26 06:00] VITALS: BP 162/51
[2018-06-26 06:44] LABS: ANION GAP 18.2 mmol/L (8-16); CALCIUM 7.7 mg/dL (8.5-10.1); CARBON DIOXIDE 26.2 mmol/L (21.0-32.0); CREATININE - SERUM 5.5 mg/dL (0.6-1.3); PHOSPHOROUS 7.3 mg/dL (2.5-4.9); POTASSIUM - SERUM 4.4 mmol/L (3.5-5.1)
[2018-06-26 07:00] LABS: BASOPHILS 0.1 % (0-2); EOSINOPHILS 2.4 % (0-7); HEMATOCRIT 28.1 % (42.0-54.0); HEMOGLOBIN 8.8 g/dL (13.5-17.5); IMMATURE GRANULOCYTES 0.4 % (0-5); LYMPHOCYTES 16.4 % (15-50); MCH 29.1 pg (26.0-34.0); MCHC 31.3 g/dL (31.0-37.0); MEAN PLATELET VOLUME 9.9 fL (7.4-10.4); MONOCYTES 4.3 % (2-11); NEUTROPHILS 76.4 % (40-80); PLATELET COUNT 189 10x3/uL (130-400); RBC 3.02 10x6/uL (4.20-6.10); RDW 17.2 % (11.5-14.5); WBC 8.2 10x3/uL (4.8-10.8)
[2018-06-26 09:19] LABS: ANTI-GLOMERULAR BASMENT MEMBRN 6 units (0-20)
[2018-06-26 15:23] LABS: ANCA - ANTIMYELOPEROXIDASE <9.0 U/mL (0.0-9.0); ANCA - ANTIPROTEINASE 3 <3.5 U/mL (0.0-3.5); ANCA - ATYPICAL <1:20 titer (Neg:<1:20); ANCA - CYTOPLASMIC <1:20 titer (Neg:<1:20); ANCA - PERINUCLEAR <1:20 titer (Neg:<1:20)
[2018-06-26 17:42] VITALS: BP 101/79
[2018-06-26 20:00] VITALS: BP 120/63
[2018-06-27] VITALS: BP 155/42
[2018-06-27 04:00] VITALS: BP 144/50
[2018-06-27 06:16] LABS: BASOPHILS 0.1 % (0-2); EOSINOPHILS 2.2 % (0-7); HEMATOCRIT 25.8 % (42.0-54.0); HEMOGLOBIN 8.1 g/dL (13.5-17.5); IMMATURE GRANULOCYTES 0.6 % (0-5); LYMPHOCYTES 25.6 % (15-50); MCH 28.9 pg (26.0-34.0); MCHC 31.4 g/dL (31.0-37.0); MCV 92.1 fL (80.0-100.0); MEAN PLATELET VOLUME 9.1 fL (7.4-10.4); MONOCYTES 5.7 % (2-11); NEUTROPHILS 65.8 % (40-80); PLATELET COUNT 181 10x3/uL (130-400); RDW 17.1 % (11.5-14.5); WBC 7.2 10x3/uL (4.8-10.8)
[2018-06-27 06:30] LABS: ANION GAP 14.3 mmol/L (8-16); CALCIUM 7.6 mg/dL (8.5-10.1); CARBON DIOXIDE 27.4 mmol/L (21.0-32.0); PHOSPHOROUS 7.9 mg/dL (2.5-4.9); POTASSIUM - SERUM 4.7 mmol/L (3.5-5.1)
[2018-06-27 07:40] VITALS: BP 135/54
[2018-06-27 12:36] VITALS: BP 144/51
[2018-06-27 16:02] VITALS: BP 120/63
[2018-06-27 20:00] VITALS: BP 149/48
[2018-06-28] VITALS: BP 165/56
[2018-06-28 04:00] VITALS: BP 148/43
[2018-06-28 08:13] LABS: BASOPHILS 0.1 % (0-2); EOSINOPHILS 1.3 % (0-7); HEMATOCRIT 28.6 % (42.0-54.0); IMMATURE GRANULOCYTES 0.7 % (0-5); MCHC 31.5 g/dL (31.0-37.0); MCV 92.3 fL (80.0-100.0); MEAN PLATELET VOLUME 9.2 fL (7.4-10.4); MONOCYTES 9.5 % (2-11); NEUTROPHILS 72.4 % (40-80); PLATELET COUNT 185 10x3/uL (130-400); RDW 16.8 % (11.5-14.5)
[2018-06-28 08:17] LABS: WBC 10.2 10x3/uL (4.8-10.8)
[2018-06-28 09:28] VITALS: BP 161/51
[2018-06-28 10:57] LABS: CALCIUM 7.9 mg/dL (8.5-10.1); CARBON DIOXIDE 27.5 mmol/L (21.0-32.0); CREATININE - SERUM 5.1 mg/dL (0.6-1.3); PHOSPHOROUS 7.6 mg/dL (2.5-4.9); POTASSIUM - SERUM 4.5 mmol/L (3.5-5.1)
[2018-06-28 12:58] VITALS: BP 155/48
[2018-06-28 20:00] VITALS: BP 154/59
[2018-06-29 01:42] LABS: AMORPHOUS SEDIMENT >1+ /lpf (NONE SEEN); APPEARANCE CLOUDY (CLEAR); BACTERIA MANY /hpf (NONE SEEN); BILIRUBIN NEGATIVE (NEGATIVE); COLOR DK YELLOW (YELLOW); EPITHELIAL CELLS 0-5 /hpf (0-5); GLUCOSE NEGATIVE (NEGATIVE); KETONE SMALL mg/dL (NEGATIVE); NITRITE NEGATIVE (NEGATIVE); PROTEIN NEGATIVE (NEGATIVE); RED CELLS - URINE 0-5 /hpf (0-5); SPECIFIC GRAVITY 1.015 (1.005-1.020); UROBILINOGEN NORMAL (NORMAL); WHITE CELLS - URINE 25-50 /hpf (0-5)
[2018-06-29 01:54] LABS: CREATININE - URINE 146.8 mg/dL (30-125)
[2018-06-29 01:55] LABS: PRO/CRE RATIO URINE 5.2 mg/g
[2018-06-29 04:00] VITALS: BP 165/53
[2018-06-29 07:46] LABS: BASOPHILS 0.1 % (0-2); EOSINOPHILS 2.4 % (0-7); HEMOGLOBIN 8.1 g/dL (13.5-17.5); IMMATURE GRANULOCYTES 0.8 % (0-5); LYMPHOCYTES 16.9 % (15-50); MCH 29.2 pg (26.0-34.0); MCHC 32.4 g/dL (31.0-37.0); MEAN PLATELET VOLUME 9.2 fL (7.4-10.4); MONOCYTES 7.4 % (2-11); NEUTROPHILS 72.4 % (40-80); PLATELET COUNT 196 10x3/uL (130-400); RBC 2.77 10x6/uL (4.20-6.10); RDW 16.3 % (11.5-14.5); WBC 8.7 10x3/uL (4.8-10.8)
[2018-06-29 07:53] LABS: MCV 90.3 fL (80.0-100.0)
[2018-06-29 07:58] LABS: ANION GAP 17.2 mmol/L (8-16); CALCIUM 7.9 mg/dL (8.5-10.1); CARBON DIOXIDE 27.8 mmol/L (21.0-32.0); CREATININE - SERUM 4.2 mg/dL (0.6-1.3); PHOSPHOROUS 6.1 mg/dL (2.5-4.9)
[2018-06-29 08:20] VITALS: BP 186/71
[2018-06-29 11:36] VITALS: BP 172/68
[2018-06-29 16:19] VITALS: BP 180/66
[2018-06-29 20:30] VITALS: BP 172/63
[2018-06-30 04:30] VITALS: BP 166/93
[2018-06-30 07:40] LABS: BASOPHILS 0.1 % (0-2); HEMATOCRIT 24.9 % (42.0-54.0); IMMATURE GRANULOCYTES 0.9 % (0-5); LYMPHOCYTES 14.4 % (15-50); MCH 28.7 pg (26.0-34.0); MCHC 32.1 g/dL (31.0-37.0); MCV 89.2 fL (80.0-100.0); MEAN PLATELET VOLUME 9.3 fL (7.4-10.4); MONOCYTES 8.1 % (2-11); NEUTROPHILS 74.5 % (40-80); PLATELET COUNT 211 10x3/uL (130-400); RBC 2.79 10x6/uL (4.20-6.10); RDW 16.2 % (11.5-14.5); WBC 9.7 10x3/uL (4.8-10.8)
[2018-06-30 07:57] LABS: ANION GAP 15.7 mmol/L (8-16); CALCIUM 7.5 mg/dL (8.5-10.1); CARBON DIOXIDE 26.4 mmol/L (21.0-32.0); CREATININE - SERUM 4.7 mg/dL (0.6-1.3); PHOSPHOROUS 6.1 mg/dL (2.5-4.9); POTASSIUM - SERUM 4.1 mmol/L (3.5-5.1)
[2018-06-30 08:58] VITALS: BP 182/76
[2018-06-30 12:02] VITALS: BP 197/53
[2018-06-30 20:00] VITALS: BP 130/53
[2018-07-01] VITALS: BP 151/63
[2018-07-01 04:00] VITALS: BP 184/58
[2018-07-01 06:49] LABS: BASOPHILS 0.2 % (0-2); EOSINOPHILS 2.1 % (0-7); HEMATOCRIT 26.2 % (42.0-54.0); HEMOGLOBIN 7.9 g/dL (13.5-17.5); IMMATURE GRANULOCYTES 1.4 % (0-5); LYMPHOCYTES 15.4 % (15-50); MCHC 30.2 g/dL (31.0-37.0); MCV 89.4 fL (80.0-100.0); MEAN PLATELET VOLUME 9.1 fL (7.4-10.4); MONOCYTES 9.5 % (2-11); NEUTROPHILS 71.4 % (40-80); PLATELET COUNT 233 10x3/uL (130-400); RBC 2.93 10x6/uL (4.20-6.10); RDW 15.9 % (11.5-14.5); WBC 9.1 10x3/uL (4.8-10.8)
[2018-07-01 07:11] LABS: ANION GAP 17.9 mmol/L (8-16); CALCIUM 7.8 mg/dL (8.5-10.1); CARBON DIOXIDE 24.2 mmol/L (21.0-32.0); CREATININE - SERUM 3.9 mg/dL (0.6-1.3); PHOSPHOROUS 5.4 mg/dL (2.5-4.9); POTASSIUM - SERUM 4.1 mmol/L (3.5-5.1)
[2018-07-01 08:17] VITALS: BP 185/58
[2018-07-01 11:13] VITALS: BP 135/72
[2018-07-01] MEDS ORDERED: ARTIFICIAL TEAR15 ML EACH EYE (11:31)
[2018-07-01 14:30] LABS: UPE RAND - ALBUMIN 55.2 % (()); UPE RAND - ALPHA 1 GLOBULIN 2.8 % (()); UPE RAND - ALPHA 2 GLOBULIN 9.5 % (()); UPE RAND - BETA GLOBULIN 11.8 % (()); UPE RAND - GAMMA GLOBULIN 20.7 % (())
[2018-07-01 16:22] VITALS: BP 165/50
[2018-07-01 20:00] VITALS: BP 160/55
[2018-07-02 04:00] VITALS: BP 173/68
[2018-07-02 05:43] LABS: BASOPHILS 0.2 % (0-2); EOSINOPHILS 2.9 % (0-7); HEMATOCRIT 25.4 % (42.0-54.0); HEMOGLOBIN 8.2 g/dL (13.5-17.5); IMMATURE GRANULOCYTES 1.6 % (0-5); LYMPHOCYTES 18.8 % (15-50); MCH 29.1 pg (26.0-34.0); MCHC 32.3 g/dL (31.0-37.0); MCV 90.1 fL (80.0-100.0); MEAN PLATELET VOLUME 9.2 fL (7.4-10.4); MONOCYTES 10.1 % (2-11); NEUTROPHILS 66.4 % (40-80); PLATELET COUNT 226 10x3/uL (130-400); RBC 2.82 10x6/uL (4.20-6.10); RDW 15.8 % (11.5-14.5); WBC 8.3 10x3/uL (4.8-10.8)
[2018-07-02 06:09] LABS: ANION GAP 11.9 mmol/L (8-16); CALCIUM 7.9 mg/dL (8.5-10.1); CARBON DIOXIDE 28.8 mmol/L (21.0-32.0); CREATININE - SERUM 4.3 mg/dL (0.6-1.3); PHOSPHOROUS 5.6 mg/dL (2.5-4.9); POTASSIUM - SERUM 3.7 mmol/L (3.5-5.1)
[2018-07-02 09:18] VITALS: BP 184/78
[2018-07-02 11:45] VITALS: BP 146/56
[2018-07-02 16:47] VITALS: BP 194/72
[2018-07-02 20:00] VITALS: BP 152/52
[2018-07-03 04:00] VITALS: BP 188/67
[2018-07-03 05:36] LABS: BASOPHILS 0.3 % (0-2); HEMATOCRIT 26.5 % (42.0-54.0); HEMOGLOBIN 8.6 g/dL (13.5-17.5); IMMATURE GRANULOCYTES 1.1 % (0-5); LYMPHOCYTES 16.3 % (15-50); MCH 29.1 pg (26.0-34.0); MCHC 32.5 g/dL (31.0-37.0); MCV 89.5 fL (80.0-100.0); MEAN PLATELET VOLUME 8.8 fL (7.4-10.4); MONOCYTES 10.5 % (2-11); NEUTROPHILS 68.8 % (40-80); PLATELET COUNT 215 10x3/uL (130-400); RBC 2.96 10x6/uL (4.20-6.10); RDW 15.9 % (11.5-14.5); WBC 7.9 10x3/uL (4.8-10.8)
[2018-07-03 05:55] LABS: ANION GAP 11.7 mmol/L (8-16); CALCIUM 7.9 mg/dL (8.5-10.1); CREATININE - SERUM 3.9 mg/dL (0.6-1.3); PHOSPHOROUS 4.6 mg/dL (2.5-4.9); POTASSIUM - SERUM 3.7 mmol/L (3.5-5.1)
[2018-07-03 07:59] VITALS: BP 197/72
[2018-07-03 15:24] VITALS: BP 160/62
[2018-07-03 20:00] VITALS: BP 102/35
[2018-07-04 04:00] VITALS: BP 152/48
[2018-07-04 04:53] LABS: BASOPHILS 0.2 % (0-2); EOSINOPHILS 3.4 % (0-7); HEMATOCRIT 26.3 % (42.0-54.0); HEMOGLOBIN 8.2 g/dL (13.5-17.5); IMMATURE GRANULOCYTES 1.5 % (0-5); LYMPHOCYTES 16.8 % (15-50); MCH 28.6 pg (26.0-34.0); MCHC 31.2 g/dL (31.0-37.0); MEAN PLATELET VOLUME 8.8 fL (7.4-10.4); MONOCYTES 12.7 % (2-11); NEUTROPHILS 65.4 % (40-80); PLATELET COUNT 209 10x3/uL (130-400); RBC 2.87 10x6/uL (4.20-6.10); WBC 8.2 10x3/uL (4.8-10.8)
[2018-07-04 04:57] LABS: MCV 91.6 fL (80.0-100.0)
[2018-07-04 05:07] LABS: ANION GAP 10.5 mmol/L (8-16); CALCIUM 7.9 mg/dL (8.5-10.1); CARBON DIOXIDE 30.1 mmol/L (21.0-32.0); CREATININE - SERUM 3.4 mg/dL (0.6-1.3); PHOSPHOROUS 4.4 mg/dL (2.5-4.9); POTASSIUM - SERUM 3.6 mmol/L (3.5-5.1)
[2018-07-04 07:59] VITALS: BP 151/52
[2018-07-04 11:25] VITALS: BP 154/44
[2018-07-04 14:57] VITALS: BP 141/45
[2018-07-04 21:01] VITALS: BP 150/43
[2018-07-05 01:32] VITALS: BP 101/68; BP 109/62
[2018-07-05 05:31] LABS: BASOPHILS 0.1 % (0-2); EOSINOPHILS 3.4 % (0-7); HEMOGLOBIN 8.4 g/dL (13.5-17.5); IMMATURE GRANULOCYTES 1.7 % (0-5); LYMPHOCYTES 21.5 % (15-50); MCH 28.9 pg (26.0-34.0); MCHC 31.1 g/dL (31.0-37.0); MCV 92.8 fL (80.0-100.0); MEAN PLATELET VOLUME 8.7 fL (7.4-10.4); MONOCYTES 8.8 % (2-11); NEUTROPHILS 64.5 % (40-80); PLATELET COUNT 231 10x3/uL (130-400); RBC 2.91 10x6/uL (4.20-6.10); RDW 16.2 % (11.5-14.5); WBC 7.3 10x3/uL (4.8-10.8)
[2018-07-05 05:59] LABS: ANION GAP 13.8 mmol/L (8-16); CALCIUM 8.1 mg/dL (8.5-10.1); CARBON DIOXIDE 28.9 mmol/L (21.0-32.0); PHOSPHOROUS 5.2 mg/dL (2.5-4.9); POTASSIUM - SERUM 3.7 mmol/L (3.5-5.1)
[2018-07-05 21:20] VITALS: BP 169/77
[2018-07-06 05:59] VITALS: BP 164/35
[2018-07-06 21:04] VITALS: BP 146/38
[2018-07-07 01:13] VITALS: BP 148/40
[2018-07-07 05:06] LABS: BASOPHILS 0.3 % (0-2); EOSINOPHILS 2.8 % (0-7); HEMATOCRIT 27.5 % (42.0-54.0); HEMOGLOBIN 8.9 g/dL (13.5-17.5); IMMATURE GRANULOCYTES 1.2 % (0-5); LYMPHOCYTES 20.4 % (15-50); MCH 29.6 pg (26.0-34.0); MCHC 32.4 g/dL (31.0-37.0); MCV 91.4 fL (80.0-100.0); MEAN PLATELET VOLUME 8.8 fL (7.4-10.4); MONOCYTES 9.8 % (2-11); NEUTROPHILS 65.5 % (40-80); PLATELET COUNT 224 10x3/uL (130-400); RBC 3.01 10x6/uL (4.20-6.10); RDW 15.9 % (11.5-14.5); WBC 6.8 10x3/uL (4.8-10.8)
[2018-07-07 05:33] LABS: % SATURATION 19 % (15-55); IRON 38 ug/dl (35-150); TOTAL IRON BIND CAPACITY 197 ug/dl (260-445); UNSAT IRON BIND CAPACITY 159 ug/dl (150-375)
[2018-07-07 05:38] LABS: ANION GAP 11.4 mmol/L (8-16); BILIRUBIN - TOTAL 0.26 mg/dL (0.2-1.3); CARBON DIOXIDE 29.5 mmol/L (21.0-32.0); CREATININE - SERUM 4.5 mg/dL (0.6-1.3); PHOSPHOROUS 5.4 mg/dL (2.5-4.9); POTASSIUM - SERUM 3.9 mmol/L (3.5-5.1); PROTEIN - SERUM 6.7 g/dL (6.4-8.2)
[2018-07-07 06:12] VITALS: BP 156/47
[2018-07-07 07:55] VITALS: BP 128/66
[2018-07-07 11:55] VITALS: BP 148/49
[2018-07-07 16:29] VITALS: BP 132/62
[2018-07-07 20:00] VITALS: BP 179/57
[2018-07-08] VITALS: BP 153/47
[2018-07-08 03:27] LABS: APPEARANCE CLOUDY (CLEAR); BILIRUBIN NEGATIVE (NEGATIVE); COLOR YELLOW (YELLOW); GLUCOSE NEGATIVE (NEGATIVE); KETONE NEGATIVE (NEGATIVE); NITRITE NEGATIVE (NEGATIVE); PROTEIN 3+ mg/dL (NEGATIVE); SPECIFIC GRAVITY 1.025 (1.005-1.020); UROBILINOGEN NORMAL (NORMAL)
[2018-07-08 03:29] LABS: BACTERIA MANY /hpf (NONE SEEN); EPITHELIAL CELLS 0-5 /hpf (0-5)
[2018-07-08 04:00] VITALS: BP 153/45
[2018-07-08 08:03] VITALS: BP 151/39
[2018-07-08 11:58] VITALS: BP 124/53
[2018-07-08 16:13] VITALS: BP 127/25
[2018-07-08 23:42] VITALS: BP 126/50
[2018-07-09 01:57] VITALS: BP 130/41
[2018-07-09 06:34] VITALS: BP 143/34
[2018-07-09 07:48] VITALS: BP 143/35
[2018-07-09 11:39] VITALS: BP 130/30
[2018-07-09 15:51] VITALS: BP 121/32
[2018-07-09 21:13] VITALS: BP 125/45
[2018-07-10 01:25] VITALS: BP 126/54
[2018-07-10 06:07] VITALS: BP 150/48
[2018-07-10 17:05] VITALS: BP 113/20
[2018-07-10 20:58] VITALS: BP 161/54
[2018-07-11] VITALS: BP 133/43
[2018-07-11 05:22] VITALS: BP 139/43
[2018-07-11 06:46] LABS: ANION GAP 8.6 mmol/L (8-16); CALCIUM 7.8 mg/dL (8.5-10.1); CARBON DIOXIDE 30.4 mmol/L (21.0-32.0)
[2018-07-11 07:00] LABS: BASOPHILS 0.1 % (0-2); EOSINOPHILS 1.8 % (0-7); HEMATOCRIT 27.7 % (42.0-54.0); HEMOGLOBIN 8.6 g/dL (13.5-17.5); MCH 28.3 pg (26.0-34.0); MCV 91.1 fL (80.0-100.0); MEAN PLATELET VOLUME 8.5 fL (7.4-10.4); MONOCYTES 9.4 % (2-11); NEUTROPHILS 66.7 % (40-80); PLATELET COUNT 241 10x3/uL (130-400); RBC 3.04 10x6/uL (4.20-6.10); RDW 15.7 % (11.5-14.5); WBC 7.1 10x3/uL (4.8-10.8)
[2018-07-11 08:30] VITALS: BP 133/81
[2018-07-11 11:51] VITALS: BP 154/55
[2018-07-11 16:06] VITALS: BP 127/44
[2018-07-11 20:00] VITALS: BP 86/40
[2018-07-12 04:59] VITALS: BP 154/57
[2018-07-12 10:01] VITALS: BP 156/52
[2018-07-12 11:36] VITALS: BP 137/48
[2018-07-12 16:00] VITALS: BP 145/70
[2018-07-12 21:10] VITALS: BP 111/31
[2018-07-13 05:13] VITALS: BP 147/85
[2018-07-13 20:00] VITALS: BP 113/34
[2018-07-14] VITALS: BP 103/50
[2018-07-14 04:00] VITALS: BP 109/42
[2018-07-14 06:34] LABS: % SATURATION 16 % (15-55); IRON 34 ug/dl (35-150); TOTAL IRON BIND CAPACITY 206 ug/dl (260-445); UNSAT IRON BIND CAPACITY 172 ug/dl (150-375)
[2018-07-14 06:51] LABS: ALBUMIN 2.1 g/dL (3.4-5.0); ANION GAP 10.3 mmol/L (8-16); BILIRUBIN - DIRECT 0.11 mg/dL (0.00-0.30); BILIRUBIN - INDIRECT 0.07 mg/dL (0.00-1.00); BILIRUBIN - TOTAL 0.18 mg/dL (0.2-1.3); CALCIUM 7.6 mg/dL (8.5-10.1); CREATININE - SERUM 4.7 mg/dL (0.6-1.3); PHOSPHOROUS 6.2 mg/dL (2.5-4.9); POTASSIUM - SERUM 4.3 mmol/L (3.5-5.1); PROTEIN - SERUM 6.5 g/dL (6.4-8.2); THYROID STIMULATING HORMONE 8.3 uIU/mL (0.36-3.74)
[2018-07-14 08:38] VITALS: BP 141/48
[2018-07-14 12:15] VITALS: BP 149/88
[2018-07-14 15:59] VITALS: BP 145/55
[2018-07-14 21:24] VITALS: BP 101/71
[2018-07-15] VITALS: BP 130/30
[2018-07-15 04:44] VITALS: BP 118/53
[2018-07-15 06:03] LABS: ANION GAP 10.1 mmol/L (8-16); CALCIUM 7.4 mg/dL (8.5-10.1); CARBON DIOXIDE 30.5 mmol/L (21.0-32.0); CREATININE - SERUM 5.4 mg/dL (0.6-1.3); POTASSIUM - SERUM 4.6 mmol/L (3.5-5.1)
[2018-07-15 07:30] VITALS: BP 132/64
[2018-07-15 08:18] LABS: FOLATE (FOLIC ACID) - SERUM 18.1 ng/mL (>3.0)
[2018-07-15 11:00] VITALS: BP 137/79
[2018-07-15 15:00] VITALS: BP 130/78
[2018-07-15 15:28] LABS: BASOPHILS 0.2 % (0-2); EOSINOPHILS 1.4 % (0-7); HEMATOCRIT 24.1 % (42.0-54.0); HEMOGLOBIN 7.6 g/dL (13.5-17.5); IMMATURE GRANULOCYTES 0.4 % (0-5); LYMPHOCYTES 20.1 % (15-50); MCH 28.6 pg (26.0-34.0); MCHC 31.5 g/dL (31.0-37.0); MCV 90.6 fL (80.0-100.0); MEAN PLATELET VOLUME 8.4 fL (7.4-10.4); MONOCYTES 8.3 % (2-11); NEUTROPHILS 69.6 % (40-80); RBC 2.66 10x6/uL (4.20-6.10); RDW 15.8 % (11.5-14.5); WBC 5.5 10x3/uL (4.8-10.8)
[2018-07-15 15:29] LABS: PLATELET COUNT 190 10x3/uL (130-400)
[2018-07-15 20:00] VITALS: BP 134/41
[2018-07-16] VITALS: BP 141/58
[2018-07-16 06:37] VITALS: BP 147/38
[2018-07-16 07:35] LABS: BASOPHILS 0.4 % (0-2); EOSINOPHILS 2.6 % (0-7); HEMATOCRIT 25.4 % (42.0-54.0); HEMOGLOBIN 8.1 g/dL (13.5-17.5); IMMATURE GRANULOCYTES 0.5 % (0-5); LYMPHOCYTES 26.2 % (15-50); MCH 28.4 pg (26.0-34.0); MCHC 31.9 g/dL (31.0-37.0); MCV 89.1 fL (80.0-100.0); MEAN PLATELET VOLUME 8.1 fL (7.4-10.4); MONOCYTES 10.9 % (2-11); NEUTROPHILS 59.4 % (40-80); PLATELET COUNT 193 10x3/uL (130-400); RBC 2.85 10x6/uL (4.20-6.10); RDW 15.6 % (11.5-14.5); WBC 5.5 10x3/uL (4.8-10.8)
[2018-07-16 07:49] LABS: ANION GAP 8.8 mmol/L (8-16); CALCIUM 7.5 mg/dL (8.5-10.1); CARBON DIOXIDE 31.3 mmol/L (21.0-32.0); CREATININE - SERUM 4.3 mg/dL (0.6-1.3); PHOSPHOROUS 4.9 mg/dL (2.5-4.9); POTASSIUM - SERUM 4.1 mmol/L (3.5-5.1)
[2018-07-16 09:00] VITALS: BP 129/34
[2018-07-16 11:02] VITALS: BP 130/43
[2018-07-16 15:39] VITALS: BP 142/68
[2018-07-16 20:00] VITALS: BP 164/54
[2018-07-17] VITALS: BP 161/53
[2018-07-17 04:00] VITALS: BP 92/51
[2018-07-17 06:26] LABS: BASOPHILS 0.3 % (0-2); EOSINOPHILS 3.2 % (0-7); HEMATOCRIT 24.5 % (42.0-54.0); IMMATURE GRANULOCYTES 0.3 % (0-5); LYMPHOCYTES 24.6 % (15-50); MCH 28.6 pg (26.0-34.0); MCHC 32.7 g/dL (31.0-37.0); MCV 87.5 fL (80.0-100.0); MEAN PLATELET VOLUME 8.4 fL (7.4-10.4); MONOCYTES 9.9 % (2-11); NEUTROPHILS 61.7 % (40-80); PLATELET COUNT 198 10x3/uL (130-400); RDW 15.6 % (11.5-14.5)
[2018-07-17 06:49] LABS: ANION GAP 12.3 mmol/L (8-16); CALCIUM 7.4 mg/dL (8.5-10.1); CARBON DIOXIDE 28.2 mmol/L (21.0-32.0); CREATININE - SERUM 4.8 mg/dL (0.6-1.3); PHOSPHOROUS 5.4 mg/dL (2.5-4.9); POTASSIUM - SERUM 4.5 mmol/L (3.5-5.1)
[2018-07-17 09:03] VITALS: BP 155/95
[2018-07-17 11:04] VITALS: BP 154/49
[2018-07-17 15:37] VITALS: BP 113/39
[2018-07-17 20:37] VITALS: BP 127/54
[2018-07-18 01:19] VITALS: BP 134/39
[2018-07-18 05:38] VITALS: BP 137/30
[2018-07-18 06:37] LABS: BASOPHILS 0.2 % (0-2); EOSINOPHILS 2.6 % (0-7); HEMATOCRIT 25.1 % (42.0-54.0); IMMATURE GRANULOCYTES 0.5 % (0-5); LYMPHOCYTES 19.1 % (15-50); MCH 28.3 pg (26.0-34.0); MCHC 31.9 g/dL (31.0-37.0); MCV 88.7 fL (80.0-100.0); MEAN PLATELET VOLUME 7.9 fL (7.4-10.4); NEUTROPHILS 66.6 % (40-80); RBC 2.83 10x6/uL (4.20-6.10); RDW 15.4 % (11.5-14.5); WBC 6.1 10x3/uL (4.8-10.8)
[2018-07-18 06:44] LABS: PLATELET COUNT 156 10x3/uL (130-400)
[2018-07-18 06:55] LABS: ANION GAP 10.2 mmol/L (8-16); CALCIUM 7.5 mg/dL (8.5-10.1); CARBON DIOXIDE 28.9 mmol/L (21.0-32.0); CREATININE - SERUM 4.2 mg/dL (0.6-1.3); PHOSPHOROUS 5.2 mg/dL (2.5-4.9); POTASSIUM - SERUM 4.1 mmol/L (3.5-5.1); VANCOMYCIN - RANDOM 2.4 ug/mL (10.0-20.0)
[2018-07-18 12:12] VITALS: BP 137/43
[2018-07-18 12:18] VITALS: BP 103/93
[2018-07-18 21:13] VITALS: BP 150/48
[2018-07-19 00:54] VITALS: BP 85/55
[2018-07-19 05:25] VITALS: BP 161/51
[2018-07-19 05:25] LABS: BASOPHILS 0.4 % (0-2); EOSINOPHILS 3.7 % (0-7); HEMATOCRIT 26.9 % (42.0-54.0); HEMOGLOBIN 8.6 g/dL (13.5-17.5); LYMPHOCYTES 28.3 % (15-50); MCH 28.2 pg (26.0-34.0); MCV 88.2 fL (80.0-100.0); MEAN PLATELET VOLUME 8.5 fL (7.4-10.4); MONOCYTES 9.1 % (2-11); NEUTROPHILS 57.5 % (40-80); RBC 3.05 10x6/uL (4.20-6.10); RDW 15.5 % (11.5-14.5); WBC 6.8 10x3/uL (4.8-10.8)
[2018-07-19 05:28] LABS: PLATELET COUNT 217 10x3/uL (130-400)
[2018-07-19 05:49] LABS: ANION GAP 15.4 mmol/L (8-16); CALCIUM 7.7 mg/dL (8.5-10.1); CREATININE - SERUM 4.7 mg/dL (0.6-1.3); PHOSPHOROUS 5.4 mg/dL (2.5-4.9); POTASSIUM - SERUM 4.4 mmol/L (3.5-5.1)
[2018-07-19 08:54] VITALS: BP 150/65
[2018-07-19 12:36] VITALS: BP 134/45
[2018-07-19 16:25] VITALS: BP 119/44
[2018-07-19 20:30] VITALS: BP 145/57
[2018-07-20 00:30] VITALS: BP 156/48
[2018-07-20 04:30] VITALS: BP 143/45
[2018-07-20 08:37] VITALS: BP 154/47
[2018-07-20 11:16] VITALS: BP 123/54
[2018-07-20 18:26] VITALS: BP 120/55
[2018-07-20 22:01] VITALS: BP 178/58
[2018-07-21 00:38] VITALS: BP 151/98
[2018-07-21 06:36] VITALS: BP 172/57
[2018-07-21 08:51] VITALS: BP 107/76
[2018-07-21 10:55] VITALS: BP 151/76
[2018-07-21 16:45] VITALS: BP 140/56
[2018-07-21 21:04] VITALS: BP 169/45
[2018-07-22 00:56] VITALS: BP 161/81
[2018-07-22 04:22] VITALS: BP 160/58
[2018-07-22 05:21] LABS: BASOPHILS 0.3 % (0-2); EOSINOPHILS 4.1 % (0-7); HEMATOCRIT 27.2 % (42.0-54.0); HEMOGLOBIN 8.7 g/dL (13.5-17.5); IMMATURE GRANULOCYTES 0.6 % (0-5); LYMPHOCYTES 27.4 % (15-50); MCH 28.2 pg (26.0-34.0); MCV 88.3 fL (80.0-100.0); MEAN PLATELET VOLUME 8.6 fL (7.4-10.4); MONOCYTES 10.3 % (2-11); NEUTROPHILS 57.3 % (40-80); PLATELET COUNT 243 10x3/uL (130-400); RBC 3.08 10x6/uL (4.20-6.10); RDW 15.6 % (11.5-14.5); WBC 6.5 10x3/uL (4.8-10.8)
[2018-07-22 05:47] LABS: ANION GAP 15.1 mmol/L (8-16); CALCIUM 7.8 mg/dL (8.5-10.1); CARBON DIOXIDE 26.2 mmol/L (21.0-32.0); CREATININE - SERUM 4.5 mg/dL (0.6-1.3); PHOSPHOROUS 6.1 mg/dL (2.5-4.9); POTASSIUM - SERUM 4.3 mmol/L (3.5-5.1)
[2018-07-22 07:49] VITALS: BP 154/43
[2018-07-22 18:17] VITALS: BP 150/62
[2018-07-22 20:29] VITALS: BP 167/34
[2018-07-23 01:10] VITALS: BP 184/47
[2018-07-23 05:12] LABS: BASOPHILS 0.3 % (0-2); EOSINOPHILS 4.3 % (0-7); HEMATOCRIT 27.4 % (42.0-54.0); HEMOGLOBIN 8.8 g/dL (13.5-17.5); IMMATURE GRANULOCYTES 0.7 % (0-5); LYMPHOCYTES 26.1 % (15-50); MCH 28.5 pg (26.0-34.0); MCHC 32.1 g/dL (31.0-37.0); MCV 88.7 fL (80.0-100.0); MEAN PLATELET VOLUME 8.2 fL (7.4-10.4); NEUTROPHILS 56.6 % (40-80); PLATELET COUNT 231 10x3/uL (130-400); RBC 3.09 10x6/uL (4.20-6.10); RDW 15.7 % (11.5-14.5); WBC 5.8 10x3/uL (4.8-10.8)
[2018-07-23 05:22] LABS: ANION GAP 14.3 mmol/L (8-16); CALCIUM 7.5 mg/dL (8.5-10.1); CREATININE - SERUM 4.2 mg/dL (0.6-1.3); PHOSPHOROUS 5.8 mg/dL (2.5-4.9); POTASSIUM - SERUM 4.3 mmol/L (3.5-5.1)
[2018-07-23 06:18] VITALS: BP 152/54
[2018-07-23 11:00] VITALS: BP 143/54
[2018-07-23 18:37] VITALS: BP 125/76
[2018-07-23 19:00] VITALS: BP 187/59
[2018-07-24 00:55] VITALS: BP 175/51
[2018-07-24 07:08] VITALS: BP 173/51
[2018-07-24 08:47] VITALS: BP 143/51
[2018-07-24 11:06] VITALS: BP 153/51
[2018-07-24 16:17] VITALS: BP 195/79
[2018-07-24 22:25] VITALS: BP 186/47
[2018-07-25 02:17] VITALS: BP 148/52
[2018-07-25 05:59] VITALS: BP 154/51
[2018-07-25 06:35] LABS: BASOPHILS 0.3 % (0-2); EOSINOPHILS 3.6 % (0-7); HEMATOCRIT 28.9 % (42.0-54.0); HEMOGLOBIN 9.3 g/dL (13.5-17.5); IMMATURE GRANULOCYTES 0.6 % (0-5); LYMPHOCYTES 26.6 % (15-50); MCH 28.5 pg (26.0-34.0); MCHC 32.2 g/dL (31.0-37.0); MCV 88.7 fL (80.0-100.0); MEAN PLATELET VOLUME 8.2 fL (7.4-10.4); MONOCYTES 10.2 % (2-11); NEUTROPHILS 58.7 % (40-80); PLATELET COUNT 219 10x3/uL (130-400); RBC 3.26 10x6/uL (4.20-6.10); RDW 15.8 % (11.5-14.5); WBC 6.4 10x3/uL (4.8-10.8)
[2018-07-25 06:44] LABS: ALBUMIN 2.2 g/dL (3.4-5.0); ANION GAP 13.4 mmol/L (8-16); CALCIUM 7.8 mg/dL (8.5-10.1); CARBON DIOXIDE 28.5 mmol/L (21.0-32.0); CREATININE - SERUM 3.7 mg/dL (0.6-1.3); POTASSIUM - SERUM 3.9 mmol/L (3.5-5.1)
[2018-07-25 08:14] VITALS: BP 121/61
[2018-07-25 12:06] VITALS: BP 118/63
[2018-07-25 16:03] VITALS: BP 120/51
[2018-07-25 21:58] VITALS: BP 186/75
[2018-07-26 01:06] VITALS: BP 179/54
[2018-07-26 04:00] VITALS: BP 174/59
[2018-07-26 12:52] VITALS: BP 166/77
[2018-07-26 17:16] VITALS: BP 149/63
[2018-07-26 20:15] VITALS: BP 154/74
[2018-07-27 01:16] VITALS: BP 153/60
[2018-07-27 05:09] LABS: BASOPHILS 0.3 % (0-2); EOSINOPHILS 3.4 % (0-7); HEMATOCRIT 29.8 % (42.0-54.0); HEMOGLOBIN 9.7 g/dL (13.5-17.5); IMMATURE GRANULOCYTES 0.8 % (0-5); LYMPHOCYTES 24.3 % (15-50); MCH 28.6 pg (26.0-34.0); MCHC 32.6 g/dL (31.0-37.0); MCV 87.9 fL (80.0-100.0); MEAN PLATELET VOLUME 8.4 fL (7.4-10.4); MONOCYTES 10.8 % (2-11); NEUTROPHILS 60.4 % (40-80); PLATELET COUNT 221 10x3/uL (130-400); RBC 3.39 10x6/uL (4.20-6.10); RDW 15.7 % (11.5-14.5); WBC 7.4 10x3/uL (4.8-10.8)
[2018-07-27 05:26] LABS: ALBUMIN 2.3 g/dL (3.4-5.0); ANION GAP 14.4 mmol/L (8-16); BILIRUBIN - TOTAL 0.25 mg/dL (0.2-1.3); CARBON DIOXIDE 26.3 mmol/L (21.0-32.0); CREATININE - SERUM 3.2 mg/dL (0.6-1.3); POTASSIUM - SERUM 3.7 mmol/L (3.5-5.1); PROTEIN - SERUM 6.6 g/dL (6.4-8.2)
[2018-07-27 05:51] VITALS: BP 155/55
[2018-07-27 08:20] VITALS: BP 181/72
[2018-07-27 09:34] LABS: ANION GAP 17.2 mmol/L (8-16); CALCIUM 8.3 mg/dL (8.5-10.1); CARBON DIOXIDE 23.6 mmol/L (21.0-32.0); CREATININE - SERUM 3.3 mg/dL (0.6-1.3); PHOSPHOROUS 4.8 mg/dL (2.5-4.9); POTASSIUM - SERUM 3.8 mmol/L (3.5-5.1)
[2018-07-27 20:42] VITALS: BP 115/55
[2018-07-28 01:36] VITALS: BP 179/65
[2018-07-28 06:04] VITALS: BP 174/39; BP 94/64
[2018-07-28 09:15] VITALS: BP 158/71
[2018-07-28 11:05] VITALS: BP 142/76
[2018-07-28 14:42] VITALS: BP 150/64
[2018-07-28 21:22] VITALS: BP 175/62
[2018-07-29 01:19] VITALS: BP 163/55
[2018-07-29 06:11] VITALS: BP 184/61
[2018-07-29 07:56] VITALS: BP 175/46
[2018-07-29 15:29] VITALS: BP 154/67
[2018-07-29 20:00] VITALS: BP 147/69
[2018-07-30 04:00] VITALS: BP 171/76
[2018-07-30 07:56] VITALS: BP 171/61
[2018-07-30 10:46] VITALS: BP 133/58
[2018-07-30 14:49] VITALS: BP 185/56
[2018-07-30 20:00] VITALS: BP 180/71
[2018-07-31] VITALS: BP 169/82
[2018-07-31 07:27] VITALS: BP 155/56
[2018-07-31 09:06] VITALS: BP 191/78
[2018-07-31 18:59] VITALS: BP 166/67
[2018-07-31 20:55] VITALS: BP 144/51
[2018-08-01 00:56] VITALS: BP 177/54
[2018-08-01 06:21] VITALS: BP 168/46
[2018-08-01 08:03] VITALS: BP 135/110
[2018-08-01 11:52] VITALS: BP 148/51
[2018-08-01 15:58] VITALS: BP 159/60
[2018-08-01 20:00] VITALS: BP 172/73
[2018-08-02] VITALS: BP 176/52
[2018-08-02 06:04] VITALS: BP 171/57
[2018-08-02 06:28] LABS: BASOPHILS 0.3 % (0-2); EOSINOPHILS 4.6 % (0-7); HEMATOCRIT 29.1 % (42.0-54.0); HEMOGLOBIN 9.6 g/dL (13.5-17.5); IMMATURE GRANULOCYTES 0.3 % (0-5); LYMPHOCYTES 31.5 % (15-50); MCV 87.9 fL (80.0-100.0); MEAN PLATELET VOLUME 8.3 fL (7.4-10.4); MONOCYTES 9.1 % (2-11); NEUTROPHILS 54.2 % (40-80); PLATELET COUNT 213 10x3/uL (130-400); RBC 3.31 10x6/uL (4.20-6.10); RDW 16.3 % (11.5-14.5); WBC 6.3 10x3/uL (4.8-10.8)
[2018-08-02 06:40] LABS: ANION GAP 14.2 mmol/L (8-16); CALCIUM 7.9 mg/dL (8.5-10.1); CARBON DIOXIDE 26.2 mmol/L (21.0-32.0); CREATININE - SERUM 3.6 mg/dL (0.6-1.3); POTASSIUM - SERUM 4.4 mmol/L (3.5-5.1)
[2018-08-02 08:00] VITALS: BP 169/74
[2018-08-02 20:12] VITALS: BP 177/50
[2018-08-03 00:20] VITALS: BP 174/50
[2018-08-03 04:49] VITALS: BP 179/54
[2018-08-03 08:52] VITALS: BP 151/71
[2018-08-03 11:02] VITALS: BP 141/69
[2018-08-03 13:15] LABS: ANION GAP 15.7 mmol/L (8-16); CALCIUM 7.8 mg/dL (8.5-10.1); CARBON DIOXIDE 26.1 mmol/L (21.0-32.0); CREATININE - SERUM 3.1 mg/dL (0.6-1.3); POTASSIUM - SERUM 3.8 mmol/L (3.5-5.1)
[2018-08-03 15:44] VITALS: BP 143/68
[2018-08-03 21:59] VITALS: BP 154/78
[2018-08-04 02:24] VITALS: BP 151/83
[2018-08-04 05:45] VITALS: BP 186/93
[2018-08-04 06:02] LABS: BASOPHILS 0.4 % (0-2); HEMATOCRIT 31.2 % (42.0-54.0); HEMOGLOBIN 10.3 g/dL (13.5-17.5); IMMATURE GRANULOCYTES 0.2 % (0-5); LYMPHOCYTES 32.6 % (15-50); MCH 28.9 pg (26.0-34.0); MCV 87.6 fL (80.0-100.0); MEAN PLATELET VOLUME 8.5 fL (7.4-10.4); MONOCYTES 11.2 % (2-11); NEUTROPHILS 50.6 % (40-80); PLATELET COUNT 202 10x3/uL (130-400); RBC 3.56 10x6/uL (4.20-6.10); RDW 16.2 % (11.5-14.5); WBC 5.6 10x3/uL (4.8-10.8)
[2018-08-04 06:16] LABS: ANION GAP 13.5 mmol/L (8-16); CALCIUM 7.9 mg/dL (8.5-10.1); CARBON DIOXIDE 27.7 mmol/L (21.0-32.0); CREATININE - SERUM 3.5 mg/dL (0.6-1.3); POTASSIUM - SERUM 4.2 mmol/L (3.5-5.1)
[2018-08-04 11:08] VITALS: BP 179/86
[2018-08-04 16:16] VITALS: BP 150/81
[2018-08-04 20:00] VITALS: BP 125/84
[2018-08-05 00:51] VITALS: BP 195/94
[2018-08-05 04:57] VITALS: BP 150/89
[2018-08-05 06:16] LABS: ANION GAP 12.8 mmol/L (8-16); CALCIUM 7.7 mg/dL (8.5-10.1); CARBON DIOXIDE 28.4 mmol/L (21.0-32.0); CREATININE - SERUM 2.8 mg/dL (0.6-1.3); POTASSIUM - SERUM 4.2 mmol/L (3.5-5.1)
[2018-08-05 07:49] VITALS: BP 184/103
[2018-08-05] MEDS ORDERED: LEVSIN/ANASP0.125 MG PO (08:52)
[2018-08-05] MEDS ORDERED: XARELTO15 MG PO (08:53)
[2018-08-05] MEDS ORDERED: SYNTHROID50 MCG PO (08:54)
[2018-08-05] MEDS ORDERED: MIRALAX17 GM PO (08:55)
[2018-08-05] MEDS ORDERED: VIGAMOX3 ML EACH EYE (08:57)
[2018-08-05] MEDS ORDERED: RENVELA0.8 GM PO (08:57)
[2018-08-05] MEDS ORDERED: LASIX40 MG PO (08:58)
[2018-08-05] MEDS ORDERED: ATARAX 25 MG TA25 MG PO (08:58)
[2018-08-05] MEDS ORDERED: COZAAR50 MG PO (09:05)
[2018-08-05 11:21] VITALS: BP 146/74
== END 2018-08-05 16:48 | DRG 673 ==
LOC: D.M2 13:42
PROVIDERS: Internal Medicine; Internal Medicine Nephrology; Surgery
PROC: 02H633Z Insertion of Infusion Device into Right Atrium, Percutaneous Approach (ICD-10-PCS; 2018-06-24)
PROC: B2141ZZ Fluoroscopy of Right Heart using Low Osmolar Contrast (ICD-10-PCS; 2018-06-24)
PROC: 0JH63XZ Insertion of Tunneled Vascular Access Device into Chest Subcutaneous Tissue and Fascia, Percutaneous Approach (ICD-10-PCS; principal; 2018-06-24 12:15)
DX: N17.9 Acute kidney failure, unspecified (principal); J96.21 Acute and chronic respiratory failure with hypoxia; I50.30 Unspecified diastolic (congestive) heart failure; Z68.44 Body mass index [BMI] 60.0-69.9, adult; I97.618 Postprocedural hemorrhage of a circulatory system organ or structure following other circulatory system procedure; I13.2 Hypertensive heart and chronic kidney disease with heart failure and with stage 5 chronic kidney disease, or end stage renal disease; E11.22 Type 2 diabetes mellitus with diabetic chronic kidney disease; E66.01 Morbid (severe) obesity due to excess calories; G47.33 Obstructive sleep apnea (adult) (pediatric); E03.9 Hypothyroidism, unspecified; I25.10 Atherosclerotic heart disease of native coronary artery without angina pectoris; Y83.8 Other surgical procedures as the cause of abnormal reaction of the patient, or of later complication, without mention of misadventure at the time of the procedure; N18.6 End stage renal disease; D64.9 Anemia, unspecified; K59.00 Constipation, unspecified

== ENCOUNTER 2019-01-09 07:15 | Day surgery (SDC) | payer MEDICARE, MEDICAID ==
[~2019-01-09] VITALS: Ht 162.6 cm; Wt 145.1 kg
--- NOTE | ~2019-01-09 | OP ---
PATIENT NAME: FREEMAN ALBRECHT MEDICAL RECORD: [id number] :[birth year] LOCATION:[facility] ADMISSION DATE: SURGEON: TAYLOR COLEMAN MD DATE OF OPERATION: 01/09/2019 PREOPERATIVE DIAGNOSIS: No long-term dialysis access and severe morbid obesity. POSTOPERATIVE DIAGNOSES: No long-term dialysis access and severe morbid obesity. OPERATION PERFORMED: Implantation of an Artegraft, loop AV graft in the left forearm between the brachial artery and the median cubital vein and a pinky push configuration. SURGEON: Taylor Coleman MD ANESTHESIA: General endotracheal per CASINO CHANGE ATTENDANT. PREOPERATIVE NOTE: This unfortunate 68-year-old super morbidly obese white male was so obese and became so deconditioned that he required shelter placement and developed renal failure and is on dialysis in [place]. He has a right internal jugular tunneled dialysis catheter. I was asked to try to provide long-term access and the patient is brought to the operating room at this time for probably an AV graft in the left arm. The patient has had vein mapping, which demonstrated small vessels in both upper extremities. The patient does have a yeast infection or intertrigo in the axillae and really an axillary loop graft is contraindicated because of that at this point. Hopefully, he will have something in his forearm. Under general endotracheal anesthesia in supine position, the patient's left arm was prepped and draped in sterile manner. I examined the limb with a duplex ultrasound and found a very nice large atherosclerotic brachial artery and a large median cubital vein which ran off via both cephalic and a nice sized basilic vein. In another patient, this would have been a good scenario for a brachiocephalic AV fistula, but this patient's skin and subcutaneous tissues are such poor quality and has such poor turgor that really only a graft or prosthetic is a practical solution for his access. I made a transverse incision and exposed the brachial artery at its bifurcation and placed Silastic loops around the distal brachial artery and the proximal radial artery and ulnar artery. The median cubital vein and its branches to the basilic and cephalic veins were exposed and isolated and controlled with Silastic loops as needed. The artery was opened, a 1.5 cm incision was made about half over the proximal radial artery and a half over the distal brachial artery. The artery was flushed with heparinized saline. No other anticoagulation was utilized. The Artegraft was prepared in the usual manner. I bevelled and anastomosed end-to-side that is end of graft to side of artery and this was done with running 6-0 Prolene on the graft and artery then flushed with heparinized saline. The suture line was hemostatic and good Doppler flow return in the artery, proximal and distal. I made a counterincision just proximal to the wrist and placed the new graft in a loop subcutaneous tunnel. The remaining end was shortened and bevelled. The vein was occluded and opened and flushed with heparinized saline and an end-to-side, end of the Artegraft to side of the median cubital vein anastomosis was done with running 6-0 Prolene and when that anastomosis was completed and the occluding clamps and loops released, excellent flow developed immediately within the new arteriovenous graft. The suture lines OPERATIVE REPORT [id number] FREEMAN ALBRECHT were both hemostatic and there was excellent continuous pulsatile flow in the graft and in the artery above and below the anastomosis and in the recipient veins. The wounds were irrigated with Ancef/gentamicin solution and infiltrated with 0.25% Marcaine without epinephrine. Wound closure was completed with interrupted inverted 3-0 Vicryl sutures and running intracuticular 4-0 Monocryl and Dermabond glue. The sites were dressed with Maxorb Ag, Tegaderm, and Cavilon skin prep and the patient awakened and extubated and taken to the recovery room. Blood loss during the operation was estimated at about 10 cc, none was replaced. All sponges, instruments and needles were accounted for. No drain was used. No surgical specimen was submitted for histopathology. PLAN: The patient will be returned to his shelter in [place] this evening. He can have dialysis there tomorrow and continue on all of his same medications, dialysis schedule activities at the shelter, etc. It will be approximately 10 days before the Artegraft could be used probably 2 weeks would be better and when we start using it we need to start with 1 needle and a 17-gauge needle at that. We will make an appointment for him to see me in my office in approximately 2 weeks. He is to continue on all of his same medications, but also to continue on or to take tramadol 50 mg 1 or 2 p.o. q.4 hours p.r.n. pain. TRANSINT:[id number] Voice Confirmation ID: [id number] DOCUMENT ID: [id number] cc: [facility], TAYLOR Singh MD CC: EMILY SMITH MD and DEEPTI SELBY MD [id number] DICTATION DATE: 01/09/19 1619 [place] LABORER: 01/10/19 0052 [facility] [place] 01/09/19 [address] [place] [address]
[~2019-01-09 07:15] MED LIST changes: +ACETAMINOPHEN500 M1 PO; +ADVAIR 250/501 DISK INH; +ARTIFICIAL TEAR15 ML EACH EYE; +ASPIRIN81 MG PO; +ATARAX 25 MG TA25 MG PO; +ATROVENT 0.02%2.5 ML UPD; +CARAFATE1 G/10 ML PO; +CARDURA2 MG PO; +CHRONULAC30 ML PO; +CLARITIN 10 MG10 MG PO; +COREG12.5 MG PO; +COZAAR50 MG PO; +CYCLOBENZAPRINE5 MG PO; +FEROCON CAPSUL1 EACH PO; +FLUTICASONE PRO16 GM NASAL; +HUMULIN R100 U/ML SC; +HYDRALAZINE HCL50 MG PO; +IPRAT-ALBUT 0.5-3 ML UPD; +ISOSORBIDE MONO60 M1 PO; +LACRI-LUBE S.O3.5 G1 EACH EYE; +LEVOTHYROXINE112 MCG PO; +LEVOTHYROXINE75 MCG PO; +LEVSIN/ANASP0.125 MG PO; +MIRALAX17 GM PO; +NIFEDIPINE ER30 MG PO; +NITROSTAT0.4 MG SL; +RENVELA0.8 GM PO; +SYNTHROID50 MCG PO; +VIGAMOX3 ML EACH EYE; +XARELTO15 MG PO; +ZANAFLEX2 M1 PO
[2019-01-09 08:30] LABS: CALCIUM 7.9 mg/dL (8.5-10.1); CARBON DIOXIDE 26.3 mmol/L (21.0-32.0); CREATININE - SERUM 5.1 mg/dL (0.6-1.3); POTASSIUM - SERUM 4.3 mmol/L (3.5-5.1)
[2019-01-09 08:34] LABS: HEMATOCRIT 37.3 % (42.0-54.0); HEMOGLOBIN 12.2 g/dL (13.5-17.5); LYMPHOCYTES 20.3 % (15-50); MCH 30.8 pg (26.0-34.0); MCHC 32.7 g/dL (31.0-37.0); MCV 94.2 fL (80.0-100.0); MEAN PLATELET VOLUME 8.5 fL (7.4-10.4); PLATELET COUNT 215 10x3/uL (130-400); RBC 3.96 10x6/uL (4.20-6.10); RDW 14.8 % (11.5-14.5); WBC 8.6 10x3/uL (4.8-10.8)
[2019-01-09 08:37] LABS: INR 1.08 (0.85-1.17); PROTIME 13.5 SECONDS (11.6-15.0)
[2019-01-09 10:01] VITALS: BP 150/44; Ht 162.6 cm; Wt 145.1 kg
--- NOTE | 2019-01-09 10:44 | NUR ---
CALLED DR WELCH PT TELEPHONE CLAIMS REPRESENTATIVE AND REQUESTED PRIOR EKG WITH CARDIAC RECORDS VIA FAX
== END 2019-01-09 19:35 ==
LOC: D.OPS 07:15
PROVIDERS: Surgery; ATTEND Internal Medicine Nephrology
DX: E11.22 Type 2 diabetes mellitus with diabetic chronic kidney disease (principal); I12.0 Hypertensive chronic kidney disease with stage 5 chronic kidney disease or end stage renal disease; N18.6 End stage renal disease; Z99.2 Dependence on renal dialysis; E66.01 Morbid (severe) obesity due to excess calories; Z01.812 Encounter for preprocedural laboratory examination